=== PATIENT | male | born 1940 | race Caucasian/White ===

== ENCOUNTER 2020-10-09 16:04 | Emergency (ER) | payer OTHER, MEDICARE, SELFPAY ==
[2020-10-09 16:13] VITALS: BP 158/72; PULSE 71; RESP 20; TEMP 37.1; O2SAT 99
[2020-10-09 16:23] VITALS: BP 158/72; PULSE 71; RESP 18; TEMP 37.1; O2SAT 99; BMI 28.8
--- NOTE | 2020-10-09 16:38 | ED_ITS ---
HPI - Skin/Abscess/Foreign Bdy General Chief complaint: Skin/Abscess/Foreign Body Stated complaint: cellulitus Time Seen by Provider: 10/09/20 16:36 Source: patient Mode of arrival: ambulatory Limitations: no limitations History of Present Illness HPI narrative: 80 yo male with hx of asthma, had poison alyssa 10/04 started on cephalex[facility] his arm has gotten more swollen and red noted swollen area on elbow - had fever of 101 last night, compliant with cephalexin complaint: rash Onset (ago): day(s) (since 11/05) Tetanus up to date: yes Location: RUE Severity: moderate Quality: aching Pain Consistency: constant Relieving factors: none Exacerbating factors: none Context: recent antibiotic and other (started with poison alyssa) Associated symptoms: fever and chills Treatments prior to arrival: antibiotic Related Data Previous Rx's Medication Instructions Recorded doxycycline hyclate 100 mg PO BID 7 Days #14 cap 10/09/20 prednisone 20 mg PO DAILY 4 Days #4 tab 10/09/20 Allergies Allergy/AdvReac Type Severity Reaction Status Date / Time No Known Allergies Allergy Verified 10/09/20 16:26 Review of Systems Review of Systems: Constitutional : pos Fever, No Chills ENT/Mouth : No sore throat, No Rhinorrhea Eyes: No Eye Pain, No Swelling, No Redness Cardiovascular : No Chest Pain, No SOB Respiratory : No Cough, No Sputum Gastrointestinal : No Nausea, No Vomiting, No Diarrhea, No abdominal Pain Genitourinary : No Dysuria, No Hematuria Musculoskeletal : No joint pain, No Myalgias, No Joint Swelling Skin : No Skin Lesions, positive skin rash Neuro : No Weakness, No Numbness, No Headache Psych : No Anxiety, No Depression Heme/Lymph: No Bruising, No Bleeding,No Lymphadenopathy Endocrine : No Polyuria, No Polydipsia All other systems reviewed and are negative [facility] Past Medical History Attestation statement: The following information was validated with the patient. Medical History Asthma Hyperlipidemia Social History Social History (Updated 10/09/20 @ 16:55 by Linnette Villela DO) Smoking Status: Never smoker Use of substances other than those prescribed or required for medical reasons: No Advance Directives: No Advance Directives Information Provided: Yes Physical Exam Vital Signs: Vital Signs: Last Vital Signs Temp 98.8 F 10/09/20 16:23 Pulse 66 10/09/20 18:40 Resp 14 10/09/20 18:40 BP 163/66 H 10/09/20 18:40 Pulse Ox 97 10/09/20 18:40 Body Mass Index 28.8 Appearance: Alert. Oriented X3. No acute distress. Eyes: Pupils equal, round and reactive to light. ENT: Pharynx normal. Neck: Normal inspection. Neck supple. CVS: Normal heart rate and rhythm. Pulses normal. Respiratory: No respiratory distress. Breath sounds normal. Abdomen: Soft and nontender. Skin: Skin warm and dry. Erythema and warmth not fully circumferental but pas sed the lines drawn on 11/05, full range of motion of elbow, olecranon swollen likely bursa inflammed, distal NV intact Extremities: No lower extremity edema. No calf ttp Neuro: Oriented X 3. No motor deficit. No sensory deficit. Course Course Course Narrative: VS stable, no WBC count, negatitve lactic acid - wants to try oral medications - will add on prednisone and doxy, did offer inpatient IV antibiotics but patient wants to try outpatient oral for the next 24 hours MDM - Skin/Abscess/Foreign Bdy MDM Narrative Medical decision making narrative: 80 yo male with asthma HPL here with RUE ce llulitis no signs of septic joint at this time, NV intact, cellulitis is past the line drawn, failed outpatient cephalexin at this time will need labs, cultures, lactic acid, start zosyn and vancomycin, possible admission Lab Data Result diagrams: 10/09/20 17:30 10/09/20 17:30 Labs: Lab Results 10/09/20 10/09/20 10/09/20 Range/Units 17:30 17:30 17:30 WBC 8.3 (4.8-10.8) X10*3/uL RBC 4.69 (4.60-5.80) X10*6/uL Hgb 14.8 (14.0-18.0) g/dl Hct 44.1 (42-52) % MCV 94.0 (80-98) fL MCH 31.6 (27.0-33.0) pg MCHC 33.6 (31.0-36.0) g/dl RDW 12.8 (11.0-16.0) % Plt Count 195 (160-400) X10*3/uL MPV 9.8 (9.4-12.4) fL Immature Gran % (Auto) 0.4 (0.0-0.4) % Neut % (Auto) 66.6 (45-73) % Lymph % (Auto) 20.5 (20-40) % [place] % (Auto) 10.9 (2-11) % Eos % (Auto) 1.1 (0-4) % Baso % (Auto) 0.5 (0-2) % Lymph # (Auto) 1.7 (1.2-4.9) X10*3/uL [place] # (Auto) 0.9 (0.1-1.2) X10*3/uL Eos # (Auto) 0.1 (0.0-0.4) X10*3/uL Baso # (Auto) 0.0 (0.0-0.2) X10*3/uL Abs Immat Gran (auto) 0.03 (0.00-0.03) X10*3/uL Absolute Neuts (auto) 5.5 (2.0-8.3) X10*3/uL Absolute Nucleated RBC 0.000 (0.0-0.012) X10*3/uL Nucleated RBC % (auto) 0.0 (0.0-0.2) /100WBC Hold Blue Top SEE NOTE Sodium 141 (135-145) mmol/L Potassium 4.0 (3.3-5.1) mmol/L Chloride 104 (96-108) mmol/L Carbon Dioxide 30 H (22-29) mmol/L Anion Gap 11 L (12-20) BUN 14 (9-16) mg/dL Creatinine 0.89 (0.5-1.4) mg/dL Estim Creat Clear Calc 75.2 Estimated GFR > 60 Random Glucose 106 (60-115) mg/dL Lactic Acid (0.5-2.0) mmol/L Calcium 9.3 (8.4-10.2) mg/dL 10/09/20 Range/Units 17:30 WBC (4.8-10.8) X10*3/uL RBC (4.60-5.80) X10*6/uL Hgb (14.0-18.0) g/dl Hct (42-52) % MCV (80-98) fL MCH (27.0-33.0) pg MCHC (31.0-36.0) g/dl RDW (11.0-16.0) % Plt Count (160-400) X10*3/uL MPV (9.4-12.4) fL Immature Gran % (Auto) (0.0-0.4) % Neut % (Auto) (45-73) % Lymph % (Auto) (20-40) % [place] % (Auto) (2-11) % Eos % (Auto) (0-4) % Baso % (Auto) (0-2) % Lymph # (Auto) (1.2-4.9) X10*3/uL [place] # (Auto) (0.1-1.2) X10*3/uL Eos # (Auto) (0.0-0.4) X10*3/uL Baso # (Auto) (0.0-0.2) X10*3/uL Abs Immat Gran (auto) (0.00-0.03) X10*3/uL Absolute Neuts (auto) (2.0-8.3) X10*3/uL Absolute Nucleated RBC (0.0-0.012) X10*3/uL Nucleated RBC % (auto) (0.0-0.2) /100WBC Hold Blue Top Sodium (135-145) mmol/L Potassium (3.3-5.1) mmol/L Chloride (96-108) mmol/L Carbon Dioxide (22-29) mmol/L Anion Gap (12-20) BUN (9-16) mg/dL Creatinine (0.5-1.4) mg/dL Estim Creat Clear Calc Estimated GFR Random Glucose (60-115) mg/dL Lactic Acid 1.0 (0.5-2.0) mmol/L Calcium (8.4-10.2) mg/dL Discharge Plan Discharge Clinical Impression: Cellulitis Qualifiers: Site of cellulitis: extremity Site of cellulitis of extremity: upper extremity Laterality: right Qualified Code(s): L03.113 - Cellulitis of right upper limb Allergic reaction Qualifiers: Encounter type: initial encounter Qualified Code(s): T78.40XA - Allergy, unspecified, initial encounter Patient Disposition: Home, Self-Care Instructions: Cellulitis (ED), Poison Alyssa (ED) Additional Instructions: return to ED for any worsening symptoms or concerns NO IMPROVEMENT IN 24 HOURS, FEVERS, INCREASED SWELLING/REDNES PARTICULARY IF IT ENCIRCLE THE REDNESS PLEASE RETURN Prescriptions: New doxycycline hyclate 100 mg capsule 100 mg PO BID 7 Days Qty: 14 RF: 0 prednisone 20 mg tablet 20 mg PO DAILY 4 Days Qty: 4 RF: 0
[2020-10-09 17:38] LABS: MANUAL DIFF FLAG NO
[2020-10-09 17:40] LABS: Basophils Percent Auto 0.5 % (0-2); Eosinophils Absolute Auto 0.1 X10*3/uL (0.0-0.4); Eosinophils Percent Auto 1.1 % (0-4); Hematocrit 44.1 % (42-52); Hemoglobin 14.8 g/dl (14.0-18.0); Imm Gran Abs Auto 0.03 X10*3/uL (0.00-0.03); Imm Gran Pct Auto 0.4 % (0.0-0.4); Lymphocytes Absolute Auto 1.7 X10*3/uL (1.2-4.9); Lymphocytes Percent Auto 20.5 % (20-40); Mean Corpuscular HGB Conc 33.6 g/dl (31.0-36.0); Mean Corpuscular Hemoglobin 31.6 pg (27.0-33.0); Mean Platelet Volume 9.8 fL (9.4-12.4); Monocytes Absolute Auto 0.9 X10*3/uL (0.1-1.2); Monocytes Percent Auto 10.9 % (2-11); Neutrophils Absolute Auto 5.5 X10*3/uL (2.0-8.3); Neutrophils Percent Auto 66.6 % (45-73); Platelet Count 195 X10*3/uL (160-400); Red Blood Count 4.69 X10*6/uL (4.60-5.80); Red Cell Distribution Width 12.8 % (11.0-16.0); White Blood Count 8.3 X10*3/uL (4.8-10.8)
[2020-10-09] MEDS: Piperacillin Sodium/Tazobactam 3.375 GM in 0.9 % Sodium Chloride 50 ML IV (17:45)
[2020-10-09 18:06] LABS: Anion Gap 11 (12-20); Blood Urea Nitrogen 14 mg/dL (9-16); Calcium 9.3 mg/dL (8.4-10.2); Carbon Dioxide 30 mmol/L (22-29); Chloride 104 mmol/L (96-108); Creatinine Clr Calc Pharmacy 75.2; Estimated Glomerular Filt Rate > 60; Glucose Random 106 mg/dL (60-115); Sodium 141 mmol/L (135-145)
[2020-10-09] MEDS: vancomycin HCL 1,000 MG in 0.9 % Sodium Chloride 250 ML 270 MG IV (18:36)
[2020-10-09 18:40] VITALS: BP 163/66; PULSE 66; RESP 14; O2SAT 97
[2020-10-09] MEDS: predniSONE 20 MG TABLET PO (20:41)
== END 2020-10-09 20:54 | disposition home or self-care (01) ==
PROVIDERS: Emergency Provider Emergency Medicine; PCP Internal Medicine
DX: L03.113 Cellulitis of right upper limb (principal); L23.7 Allergic contact dermatitis due to plants, except food
CPT/HCPCS: 36415; 80048; 83605; 85025; 87040; 96365; 96367; 99284; J2543; J3370

== ENCOUNTER 2022-01-03 07:08 | Inpatient (IN) | payer OTHER, SELFPAY ==
[2022-01-03] VITALS (10 sets, daily range): BP systolic 147–185; BP diastolic 73–98; PULSE 68–103; RESP 16–21; TEMP 36.8; O2SAT 90–98; BMI 29.5
--- NOTE | ~2022-01-03 | XR_ITS ---
EXAMINATION: XR CHEST CLINICAL INFORMATION: Wheezing and cough COMPARISON: None TECHNIQUE: 2 views of the chest were obtained. FINDINGS: Lungs grossly are clear. No pleural effusions. Heart and pulmonary vessels are normal. There is spondylitic change in the thoracic spine. XR/XR chest 2V IMPRESSION: No active disease.
--- NOTE | ~2022-01-03 | US_ITS ---
EXAMINATION: US VENOUS ULTRASOUND WITH DOPPLER LOWER EXTREMITY, RIGHT CLINICAL INFORMATION: Edema and swelling COMPARISON: None TECHNIQUE: Ultrasound of the deep veins is performed from the hip to the calf with compression sonography and color and pulse Doppler assessment. Spectral analysis with color-flow imaging is performed. FINDINGS: There is normal venous compression and respiratory variation and augmented flow. The visualized common femoral vein, superficial femoral vein, profunda femoral vein, popliteal vein, and the trifurcation region shows no evidence of deep venous thrombosis. There is no significant popliteal fossa cyst. If the patient's symptoms persist, followup ultrasound in 5 days 7 days might be of value to exclude proximal propagation from a non-visualized calf vein. US/US venous duplex LE RT IMPRESSION: No DVT demonstrated in the right lower extremity.
--- NOTE | ~2022-01-03 | CT_ITS ---
EXAMINATION: CT ANGIOGRAM OF THE CHEST WITH AND WITHOUT CONTRAST (CT PULMONARY ANGIOGRAM FOR PE) CLINICAL INFORMATION: Reason for Exam hypoxia, sob COMPARISON: None TECHNIQUE: Prior to contrast administration, noncontrast localization images were obtained. Subsequently, multidetector volumetric imaging was performed from the thoracic inlet to below the diaphragms following the administration of 80 mL Omnipaque 350 intravenous contrast. No contrast reaction reported Sagittal, coronal, and MIP oblique sagittal reformatted images were obtained on the CT workstation, uploaded to PACS, and reviewed. This CT examination was performed using dose optimization techniques as appropriate, variously including the following: *Automated exposure control *Adjustment of mA and/or kV according to patient size (this includes techniques or standardized protocols for targeted exams where dose is matched to indication/reason for exam; i.e. extremities or head) *Use of iterative reconstruction technique Total exam dose-length product 340 mGy-cm FINDINGS: QUALITY OF STUDY/CONTRAST BOLUS: Satisfactory. PULMONARY ARTERIES: No central or segmental pulmonary emboli. THORACIC AORTA: No aneurysm or dissection. LUNG: There is a minor consolidation at the right lung base with associated atelectatic change but no suspicious nodules. The left lung is considered clear. PLEURA: No pleural effusion or pneumothorax. MEDIASTINUM: Normal heart size. Minimal pericardial thickening. No significant mediastinal or hilar adenopathy. No evidence of septal bowing or right heart strain. CHEST WALL/AXILLA: No axillary or internal mammary lymphadenopathy. OSSEOUS STRUCTURES: Multilevel spondylitic change but no fracture. UPPER ABDOMEN: Moderate hepatic steatosis. Gallstones. No reflux of contrast into the hepatic veins to suggest elevated right heart pressures. CT/CT angio chest PE protocol IMPRESSION: Minor infiltrate right base. No evidence for acute PE. VTE: negative
--- NOTE | 2022-01-03 08:48 | ED_ITS ---
HPI - URI/Sore Throat General Chief Complaint: Upper Respiratory Symptoms Stated Complaint: DIFF BREATHING Time Seen by Provider: 01/03/22 08:38 Source: patient Mode of arrival: ambulatory History of Present Illness HPI Narrative: 81-year-old male with a past medical history of asthma, HLD, presenting to the ED complaining of worsening SOB and cough x1 week. Reports multiple recent asthma exacerbations/bronchitis treated over the past few months with 3 or more antibiotics and prednisone, most recently finishing doxycycline/prednisone about 4 days ago. Admits to using neb machine and inhalers at home without much relief. Also reports R LE swelling. Denies fever, sore throat, ear pain, abdominal pain, nausea/vomiting, recent travel, history of clots, calf pain, chest pain MD elicited complaint: cough Pertinent past history: asthma Onset (ago): week(s) Consistency: intermittent Severity: moderate Related Data Previous Rx's Medication Instructions Recorded doxycycline hyclate 100 mg capsule 100 mg PO BID 7 days #14 caps 10/09/20 prednisone 20 mg tablet 20 mg PO DAILY 4 days #4 tabs 10/09/20 Allergies Allergy/AdvReac Type Severity Reaction Status Date / Time No Known Allergies Allergy Verified 10/09/20 16:26 Review of Systems Review of Systems: Constitutional: No Fever, No Chills, No Fatigue, No Malaise ENT/Mouth: No Ear Pain, No Nasal Congestion, No Sinus Pain, No Hoarseness, No sore throat, No Rhinorrhea, No Swallowing Difficulty Eyes: No Eye Pain, No Swelling, No Redness, No Vision Changes Cardiovascular: No Chest Pain, + SOB, No Dyspnea on Exertion, No Orthopnea, + Edema, No Palpitations Respiratory: + Cough, No Sputum, + Wheezing, No Smoke Exposure, + Dyspnea Gastrointestinal: No Nausea, No Vomiting, No Diarrhea, No Constipation, No Abdominal pain Genitourinary: No Dysuria, No Urinary Frequency, No Hematuria, No Flank Pain, No Urinary Flow Changes, No Hesitancy Musculoskeletal: No joint pain, No Myalgias, No Joint Swelling Skin: No Skin Lesions, No rash Neuro: No Weakness, No Dizziness, No Headache Yes all other systems are reviewed and are negative Constitutional: Constitutional: Reports as per [facility] Past Medical History Attestation statement: The following information was validated with the patient. Medical History Asthma Hyperlipidemia Social History Social History (Updated 10/09/20 @ 16:55 by Linnette Villela DO) Smoked in Last 30 Days: No Use of substances other than those prescribed or required for medical reasons: No Advance Directives: No Advance Directives Information Provided: No Physical Exam Vital Signs: Vital Signs: Last Vital Signs Temp 98.2 F 01/03/22 07:28 Pulse 98 01/03/22 14:37 Resp 19 01/03/22 14:37 BP 157/85 H 01/03/22 14:37 Pulse Ox 90 L 01/03/22 15:21 O2 Del Method 01/03/22 15:21 BMI result Body Mass Index 29.5 Const: General: cooperative, healthy appearing, alert and awake Orientation/consciousness: patient oriented x3 Limitations: no limitations HEENT: Head: Yes normal to inspection and Yes atraumatic Ears: hearing grossly normal bilaterally General nose exam: Normal external nose present Face and sinus: Yes normal facial exam Eyes: General: appearance normal, both eyes and all related structures EOM: EOMs intact bilaterally Neck: Neck: Yes normal visual inspection and Yes no meningeal signs Resp: Other: Talking in short sentences due to coughing Effort & Inspection: normal respiratory effort, Actively coughing and no respiratory distress Auscultation: wheezes expiratory wheezes and throughout Cardio: Rate: regular rate Heart sounds: S1 normal heart sound present and S2 normal heart sound present GI: Inspection: Yes normal to inspection Palpation (GI): Soft to palpation, nontender, no guarding and not rigid : General: Yes no CVA tenderness Back/Spine/Pelvis: Back: no CVA tenderness Skin: Rashes: no rashes Wounds: no wounds Neuro: General: patient oriented x3, tone normal and no meningeal signs Gait exam (Neuro): Normal gait present Extrem: Other: +RLE edema, no calf pain Course Course Course Narrative: -no leukocytosis. Labs otherwise unremarkable. Troponin negative. -COVID-19 negative XR chest 2V IMPRESSION: No active disease. US venous duplex LE RT IMPRESSION: No DVT demonstrated in the right lower extremity. -1128--on re-evaluation patient reports symptomatic improvement, satting 94% on RA, lungs with increased air movement, still slight residual end-expiratory wheeze. Will order additional DuoNeb and IV magnesium -1324--on re-evaluation when walked into room patient was resting comfortably sating 90-91% on RA, lungs w/bibasilar wheeze, good air, with deep breathing O2 increases to 94% > will obtain CTA to r/o PE and ambulate with pulse ox -1523--on re-evaluation patient lying in stretcher satting 90% on RA, still with residual expiratory wheeze. CT angio chest PE protocol IMPRESSION: Minor infiltrate right base. No evidence for acute PE. ? VTE: negative >> will initiate Levaquin and admit patient for further management MDM - URI/Sore Throat MDM Narrative Medical decision making narrative: 81-year-old male with a past medical history of asthma, HLD, presenting to the ED complaining of worsening SOB and cough x1 week. Reports multiple recent ast hma exacerbations/bronchitis treated over the past few months with 3 or more antibiotics and prednisone, most recently finishing doxycycline/prednisone about 4 days ago. On exam vital signs stable, sating 93-95% on RA, talking in short sentences due to coughing, diffuse expiatory wheeze throughout noted. RLE with edema. Concern for asthma exacerbation vs bronchitis vs pneumonia. Lower suspicion for ACS/PE. Rule out DVT Plan: EKG, labs, CXR, COVID-19 testing, IV Solu-Medrol, DuoNebs, reassess Differential Diagnosis Differential diagnosis: Likely upper respiratory infection Medical Records Attestation: I reviewed the patient's medical records. Lab Data Attestation: I reviewed the patient's lab results. Result diagrams: 01/03/22 08:47 01/03/22 09:24 Labs: Lab Results 01/03/22 01/03/22 01/03/22 Range/Units 08:47 08:47 08:47 WBC 7.5 (4.8-10.8) X10*3/uL RBC 4.98 (4.60-5.80) X10*6/uL Hgb 15.7 (14.0-18.0) g/dl Hct 45.9 (42.0-52.0) % MCV 92.2 (80.0-98.0) fL MCH 31.5 (27.0-33.0) pg MCHC 34.2 (31.0-36.0) g/dl RDW 13.2 (11.0-16.0) % Plt Count 191 (160-400) X10*3/uL MPV 9.5 (9.4-12.4) fL Immature Gran % (Auto) 0.3 (0.0-0.4) % Neut % (Auto) 53.5 (45-73) % Lymph % (Auto) 26.1 (20-40) % [place] % (Auto) 8.4 (2-11) % Eos % (Auto) 10.9 H (0-4) % Baso % (Auto) 0.8 (0-2) % Lymph # (Auto) 2.0 (1.2-4.9) X10*3/uL [place] # (Auto) 0.6 (0.1-1.2) X10*3/uL Eos # (Auto) 0.8 H (0.0-0.4) X10*3/uL Baso # (Auto) 0.1 (0.0-0.2) X10*3/uL Abs Immat Gran (auto) 0.02 (0.00-0.03) X10*3/uL Absolute Neuts (auto) 4.0 (2.0-8.3) x10*3/uL Absolute Nucleated RBC 0.000 (0.0-0.012) X10*3/uL Nucleated RBC % (auto) 0.0 (0.0-0.2) /100WBC Sodium (135-145) mmol/L Potassium (3.3-5.1) mmol/L Chloride (96-108) mmol/L Carbon Dioxide (22-29) mmol/L Anion Gap (12-20) BUN (9-16) mg/dL Creatinine (0.5-1.4) mg/dL Estim Creat Clear Calc Estimated GFR Random Glucose (60-115) mg/dL Calcium (8.4-10.2) mg/dL Magnesium (1.6-2.6) mg/dL Total Bilirubin (0.0-1.0) mg/dL Direct Bilirubin (0.0-0.5) mg/dL AST (5-37) U/L ALT (0-40) U/L Alkaline Phosphatase (39-117) U/L Troponin I High Sens 3.6 (<3.5-35.0) ng/L B-Natriuretic Peptide 29 (<100) pg/mL Total Protein (6.5-8.0) g/dL Albumin (3.5-5.0) g/dL COVID-19 ([facility]) Negative (Negative) COVID-19 Clin Com See Note 01/03/22 Range/Units 09:24 WBC (4.8-10.8) X10*3/uL RBC (4.60-5.80) X10*6/uL Hgb (14.0-18.0) g/dl Hct (42.0-52.0) % MCV (80.0-98.0) fL MCH (27.0-33.0) pg MCHC (31.0-36.0) g/dl RDW (11.0-16.0) % Plt Count (160-400) X10*3/uL MPV (9.4-12.4) fL Immature Gran % (Auto) (0.0-0.4) % Neut % (Auto) (45-73) % Lymph % (Auto) (20-40) % [place] % (Auto) (2-11) % Eos % (Auto) (0-4) % Baso % (Auto) (0-2) % Lymph # (Auto) (1.2-4.9) X10*3/uL [place] # (Auto) (0.1-1.2) X10*3/uL Eos # (Auto) (0.0-0.4) X10*3/uL Baso # (Auto) (0.0-0.2) X10*3/uL Abs Immat Gran (auto) (0.00-0.03) X10*3/uL Absolute Neuts (auto) (2.0-8.3) x10*3/uL Absolute Nucleated RBC (0.0-0.012) X10*3/uL Nucleated RBC % (auto) (0.0-0.2) /100WBC Sodium 144 (135-145) mmol/L Potassium 4.4 (3.3-5.1) mmol/L Chloride 107 (96-108) mmol/L Carbon Dioxide 30 H (22-29) mmol/L Anion Gap 11 L (12-20) BUN 11 (9-16) mg/dL Creatinine 0.95 (0.5-1.4) mg/dL Estim Creat Clear Calc 70.1 Estimated GFR > 60 Random Glucose 132 H (60-115) mg/dL Calcium 9.1 (8.4-10.2) mg/dL Magnesium 2.3 (1.6-2.6) mg/dL Total Bilirubin 0.3 (0.0-1.0) mg/dL Direct Bilirubin < 0.2 (0.0-0.5) mg/dL AST 22 (5-37) U/L ALT 29 (0-40) U/L Alkaline Phosphatase 62 (39-117) U/L Troponin I High Sens (<3.5-35.0) ng/L B-Natriuretic Peptide (<100) pg/mL Total Protein 6.5 (6.5-8.0) g/dL Albumin 4.1 (3.5-5.0) g/dL COVID-19 ([facility]) (Negative) COVID-19 Clin Com ECG Data Attestation: I personally reviewed and interpreted this ECG as follows: ECG interpretation date: 01/03/22 ECG interpretation time: 10:07 Prior ECG tracings: available for review Interpretation: EKG normal sinus rhythm with premature atrial complexes. At a rate of 74. QRS 108. QTC 452. Artifact present. No STEMI Critical Care Time Critical Care Time Critical Care Time: Yes Total Critical Care Time: 40 Attestation: I have personally provided critical care time exclusive of time spent on separately billable procedures. Time includes review of lab data, radiology results, discussion with consultants, and monitoring for potential decompensation. Intervention performed as documented. Discharge Plan Discharge Clinical Impression: Asthma exacerbation, Pneumonia Patient Disposition: Admitted As Inpatient Prescriptions: No Action doxycycline hyclate 100 mg capsule 100 mg PO BID 7 Days Qty: 14 0RF prednisone 20 mg tablet 20 mg PO DAILY 4 Days Qty: 4 0RF
[2022-01-03 08:52] LABS: MANUAL DIFF FLAG NO
[2022-01-03 08:54] LABS: Basophils Absolute Auto 0.1 X10*3/uL (0.0-0.2); Basophils Percent Auto 0.8 % (0-2); Eosinophils Absolute Auto 0.8 X10*3/uL (0.0-0.4); Eosinophils Percent Auto 10.9 % (0-4); Hematocrit 45.9 % (42.0-52.0); Hemoglobin 15.7 g/dl (14.0-18.0); Imm Gran Abs Auto 0.02 X10*3/uL (0.00-0.03); Imm Gran Pct Auto 0.3 % (0.0-0.4); Lymphocytes Percent Auto 26.1 % (20-40); Mean Corpuscular HGB Conc 34.2 g/dl (31.0-36.0); Mean Corpuscular Hemoglobin 31.5 pg (27.0-33.0); Mean Corpuscular Volume 92.2 fL (80.0-98.0); Mean Platelet Volume 9.5 fL (9.4-12.4); Monocytes Absolute Auto 0.6 X10*3/uL (0.1-1.2); Monocytes Percent Auto 8.4 % (2-11); Neutrophils Percent Auto 53.5 % (45-73); Platelet Count 191 X10*3/uL (160-400); Red Blood Count 4.98 X10*6/uL (4.60-5.80); Red Cell Distribution Width 13.2 % (11.0-16.0); White Blood Count 7.5 X10*3/uL (4.8-10.8)
--- NOTE | 2022-01-03 08:54 | ECG_ITS ---
Test Reason : shortness of breathe Blood Pressure : / mmHG Vent. Rate : 074 BPM Atrial Rate : 074 BPM P-R Int : 198 ms QRS Dur : 108 ms QT Int : 408 ms P-R-T Axes : 051 -46 052 degrees QTc Int : 452 ms Sinus rhythm with Premature atrial complexes Left axis deviation Minimal voltage criteria for LVH, may be normal variant ( [place] product ) Abnormal ECG No previous ECGs available Referred By: Brittnee Boswell Electronically Signed By:CELIO PEREZ
[2022-01-03] MEDS: Albuterol Sulfate (0.083%) 2.5 MG/3 ML VIAL.NEB 5 MG INHALE (09:01)
[2022-01-03] MEDS: Albuterol/Iprat 2.5/0.5MG 3 ML AMPUL.NEB INHALE ×4 (09:01→22:55)
[2022-01-03] MEDS: methylPREDNISolone Sod Succ 125 MG/2 ML VIAL IVPUSH (09:06)
[2022-01-03 09:13] LABS: COVID-19 Test Negative (Negative)
[2022-01-03 09:27] LABS: B Type Natriuretic Peptide 29 pg/mL (<100); Troponin-I High Sensitivity 3.6 ng/L (<3.5-35.0)
[2022-01-03 09:50] LABS: Alanine Aminotransferase 29 U/L (0-40); Albumin Level 4.1 g/dL (3.5-5.0); Alkaline Phosphatase 62 U/L (39-117); Anion Gap 11 (12-20); Aspartate Amino Transferase 22 U/L (5-37); Bilirubin Direct < 0.2 mg/dL (0.0-0.5); Bilirubin Total 0.3 mg/dL (0.0-1.0); Blood Urea Nitrogen 11 mg/dL (9-16); Calcium 9.1 mg/dL (8.4-10.2); Carbon Dioxide 30 mmol/L (22-29); Chloride 107 mmol/L (96-108); Creatinine Clr Calc Pharmacy 70.1; Estimated Glomerular Filt Rate > 60; Glucose Random 132 mg/dL (60-115); Magnesium 2.3 mg/dL (1.6-2.6); Potassium 4.4 mmol/L (3.3-5.1); Sodium 144 mmol/L (135-145); Total Protein 6.5 g/dL (6.5-8.0)
[2022-01-03] MEDS: Magnesium Sulfate/H2O 2 GM/50 ML PIGGYBACK IV (11:49)
[2022-01-03] MEDS: Albuterol Sulfate (0.083%) 2.5 MG/3 ML VIAL.NEB INHALE (13:57)
--- NOTE | 2022-01-03 15:43 | PHA.MEDREC ---
Addendum entered by Marisol Gutierrez [facility] 01/03/22 16:01: [facility] Atorvastatin. Interviewed patient again, he stated he no longer takes it. Original Note: Pharmacy Consult ? Medication Reconciliation Pharmacy has completed the medication reconciliation. Used list that patient had with him.
[2022-01-03] MEDS: levoFLOXacin/D5W 750 MG/150 ML PIGGYBACK 100 MG IV (16:06)
--- NOTE | 2022-01-03 17:10 | P.HPHOSP_ITS ---
History of Present Illness Date of Service: 01/03/22 Chief Complaint: sob,pneumonia 81-year-old male with a past medical history of asthma, htn,HLD, presenting to the ED complaining of worsening SOB and cough x1 week.? Reports multiple recent asthma exacerbations/bronchitis treated over the past few months with 3 or more antibiotics and prednisone by pcp , most recently finishing doxycycline/prednisone about 4 days ago. He says that shortness of breath getting progressively worsen during this week, also has aggressive cough which makes shortness of breath worse also. After trying multiple courses of nebs, steriods, antibiotic out patiently symptoms are still not improving so come hospital. Has cough aggressive- mostly itis sputum production. Sats resting at 90% but get short of breath when try to move. denies any recent sick contacts. lives alone but goes to meet his daughter almost everyday. ? Denies fever, sore throat, ear pain, abdominal pain, nausea/vomiting, recent travel, history of clots, calf pain, chest pain. in ED: Received albuterol, steroids, antibiotics, chest x-ray shows infiltrate/ Possible pneumonia. Patient has tachycardia social history : denies any history of smoking or recreational drug use or alcohol use. Review of Systems Review of Systems: as above. [facility] Medical History Asthma Hyperlipidemia Pertinent family history: denies any family history of asthma or hypertension Social History Smoked in Last 30 Days: No Use of substances other than those prescribed or required for medical reasons: No Advance Directives: No Advance Directives Information Provided: No Meds Allergies Allergy/AdvReac Type Severity Reaction Status Date / Time No Known Allergies Allergy Verified 10/09/20 16:26 Active Medications: Current Medications Albuterol/Ipratropium (Albuterol/Iprat 2.5/0.5mg 3 Ml Ampul.Neb) 3 ml INHALE Q4H [facility] Aspirin (Aspirin Enteric Coated 81 Mg Tablet.) 81 mg PO DAILY [facility] Famotidine (Famotidine 20 Mg Tablet) 40 mg PO BEDTIME [facility] Levofloxacin (Levaquin) 500 mg in 100 mls @ 100 mls/hr IV Q24H [facility] Lisinopril (Lisinopril 20 Mg Tablet) 20 mg PO DAILY [facility]; Protocol Methylprednisolone Sodium Succinate (Methylprednisolone Sod Succ 40 Mg/Ml Vial) 40 mg IVPUSH TID [facility] Metoprolol Succinate (Metoprolol Succinate Er 50 Mg Tab.Er.24h) 50 mg PO DAILY [facility]; Protocol Montelukast Sodium (Montelukast Sodium 10 Mg Tablet) 10 mg PO BEDTIME [facility] Multivitamins/Vitamin C (Multivitamin Tablet) 1 tab PO DAILY [facility] Pharmacy Consult (Consult Rx Perform Med Rec) 1 each MISCELLANE ONCE PRN PRN Reason: Consult order Sodium Chloride (0.9 % Sodium Chloride Flush 3 Ml Syringe) 3 ml IVFLUSH QSHIFT [facility] Home Medications Medication Instructions Recorded Confirmed Last Taken Type aspirin 81 mg tablet,delayed 81 mg PO DAILY 01/03/22 01/03/22 01/02/22 20:00 History release famotidine 40 mg tablet 40 mg PO BEDTIME 01/03/22 01/03/22 01/02/22 20:00 Histor y lisinopril 20 mg tablet 20 mg PO DAILY 01/03/22 01/03/22 01/02/22 20:00 History metoprolol succinate 50 mg 50 mg PO DAILY 01/03/22 01/03/22 01/02/22 20:00 History tablet,extended release 24 hr montelukast 10 mg tablet 10 mg PO BEDTIME 01/03/22 01/03/22 01/02/22 20:00 History vit C 250 mg-vit E 90 mg-zinc 40 1 tab PO DAILY 01/03/22 01/03/22 01/02/22 20:00 History mg-copper 1 [id number] capsule (PreserVision AREDS-2) Physical Exam Vital Signs and Narrative: Vital Signs: Last Vital Signs Temp 98.2 F 01/03/22 07:28 Pulse 98 01/03/22 14:37 Resp 19 01/03/22 14:37 BP 157/85 H 01/03/22 14:37 Pulse Ox 90 L 01/03/22 15:21 O2 Del Method 01/03/22 15:21 BMI result Body Mass Index 29.5 Results Labs CBC and Chem 7: 01/03/22 08:47 01/03/22 09:24 Labs: Laboratory Results - last 24 hr 01/03/22 01/03/22 01/03/22 08:47 08:47 08:47 MCV 92.2 MCH 31.5 MCHC 34.2 RDW 13.2 Plt Count 191 MPV 9.5 Immature Gran % (Auto) 0.3 Neut % (Auto) 53.5 Lymph % (Auto) 26.1 Bremer % (Auto) 8.4 Eos % (Auto) 10.9 H Baso % (Auto) 0.8 Lymph # (Auto) 2.0 Bremer # (Auto) 0.6 Eos # (Auto) 0.8 H Baso # (Auto) 0.1 Abs Immat Gran (auto) 0.02 Absolute Neuts (auto) 4.0 Absolute Nucleated RBC 0.000 Nucleated RBC % (auto) 0.0 Anion Gap Estim Creat Clear Calc Estimated GFR Random Glucose Calcium Magnesium Total Bilirubin Direct Bilirubin AST ALT Alkaline Phosphatase B-Natriuretic Peptide 29 Total Protein Albumin COVID-19 ([facility]) Negative COVID-19 Clin Com See Note 01/03/22 09:24 MCV MCH MCHC RDW Plt Count MPV Immature Gran % (Auto) Neut % (Auto) Lymph % (Auto) Bremer % (Auto) Eos % (Auto) Baso % (Auto) Lymph # (Auto) Bremer # (Auto) Eos # (Auto) Baso # (Auto) Abs Immat Gran (auto) Absolute Neuts (auto) Absolute Nucleated RBC Nucleated RBC % (auto) Anion Gap 11 L Estim Creat Clear Calc 70.1 Estimated GFR > 60 Random Glucose 132 H Calcium 9.1 Magnesium 2.3 Total Bilirubin 0.3 Direct Bilirubin < 0.2 AST 22 ALT 29 Alkaline Phosphatase 62 B-Natriuretic Peptide Total Protein 6.5 Albumin 4.1 COVID-19 ([facility]) COVID-19 Clin Com Imaging Radiologist's Impressions: Impressions Chest X-Ray 01/03/22 09:00 IMPRESSION: No active disease. Venous Duplex 01/03/22 10:43 IMPRESSION: No DVT demonstrated in the right lower extremity. Chest CTA 01/03/22 14:24 IMPRESSION: Minor infiltrate right base. No evidence for acute PE. VTE: negative Assessment and Plan (1) Asthma exacerbation: Status: Acute (2) Pneumonia: Status: Acute Plan 81-year-old male with history of hypertension, hyperlipidemia, asthma came to the hospital because shortness of breath and aggressive cough and phlegm.. 1. Asthma exacerbation/ pneumonia. Talking in the short sentences, sats are 90% resting, with walking gets more short of breath. Due to failed multiple treatment outpatientwith steroid antibiotics and nebs out patiently restart the patient on nebs, steroids IV, IV antibiotics blood cultures sent patient is not septic 2: hypertension: Continue home lisinopril and metoprolol. 3. History of carotid endarterectomy in 2008: Continue aspirin, statin, blood pressure management. 4.HLP: continue statin. DVT prophylaxis: With subQ Lovenox. Patient would benefit from to midnight stays since failed multiple outpatient medical treatments for asthma /possible pneumonia and still symptomatic. patient may benefit from to midnight stays due to above. Above management discussed with the patient in detail length he understand and in agreement with above plan, time spent 70 minute, patient is full code. Quality Stroke Does the patient have a stroke diagnosis?: No VTE Prior VTE?: No VTE Risk Level:: Medical - moderate - high VTE Device Contraindication: N/A - Device Ordered VTE Drug Contraindication: N/A - Med Ordered
[2022-01-03] MEDS: methylPREDNISolone Sod Succ 40 MG/ML VIAL IVPUSH (21:01)
[2022-01-03] MEDS: Montelukast Sodium 10 MG TABLET PO (21:01)
[2022-01-03] MEDS: Famotidine 20 MG TABLET 40 MG PO (21:01)
--- NOTE | 2022-01-03 22:47 | MHC.CM.PN ---
IMM 01/03. Met with admitted patient with bed assignment pending. A&Ox4. [place]. [facility]. 100% vet connected. Lives alone. Daily contact with daughter and her family. Nebulizer. Independent. No home services. Has services with [facility] and pharmacy. Pt is unvaccinated. States he has judaism reasons. Requesting contact information regarding PCP with [place] [facility]. Pt highly complimentary of [facility] and would like local PCP along with [facility] services. Contact information given for [facility]. D/C plan is home without services. Pt will drive himself home. His car is in the parking lot. CM to follow for d/c needs.
[2022-01-04] VITALS (10 sets, daily range): BP systolic 138–174; BP diastolic 53–94; PULSE 88–99; RESP 17–22; TEMP 36–36.7; O2SAT 92–98
[2022-01-04] MEDS: 0.9 % Sodium Chloride Flush 3 ML SYRINGE IVFLUSH ×4 (01:07→19:44)
[2022-01-04] MEDS: Albuterol/Iprat 2.5/0.5MG 3 ML AMPUL.NEB INHALE ×4 (04:28→19:26)
[2022-01-04 10:04] LABS: Procalcitonin 0.04 ng/mL
[2022-01-04] MEDS: methylPREDNISolone Sod Succ 40 MG/ML VIAL IVPUSH ×3 (10:57→19:43)
[2022-01-04] MEDS: Metoprolol Succinate ER 50 MG TAB.ER.24H PO (10:58)
[2022-01-04] MEDS: Aspirin Enteric Coated 81 MG TABLET.DR PO (10:58)
[2022-01-04] MEDS: lisinopriL 20 MG TABLET PO (10:58)
[2022-01-04] MEDS: Multivitamin TABLET 1 TAB PO (10:59)
--- NOTE | 2022-01-04 13:29 | P.CDIC_ITS ---
CDI Concurrent Query Documentation Clarification: PHYSICIAN'S DOCUMENTATION REQUEST Date of Query: 01/04/22 1329 Patient Name: Samuel Mark Admit Date: 01/03/22 Dear Doctor, Please review the following and provide your response in the progress notes. Clinical Indicators: The diagnosis of asthma was documented in the record on 01/03/22. Additional clinical indicators from the record include: Risk Factors/Clinical Indicators/Treatments Per H&P: Asthma exacerbation restart the patient on nebs, steroids IV, IV antibiotics Based on the above, please clarify in the Progress Notes further specificity regarding the type and acuity of the asthma: Type: * Mild intermittent - less than 2x/week * Mild persistent - more than 2x/week but not daily * Moderate persistent - daily and may restrict physical activity * Severe persistent - throughout the day with frequent attacks, limiting activities * Exercise induced * Chronic obstructive asthma and indicate if with acute lower respiratory infection * Asthma with underlying COPD and indicate if with acute lower respiratory infection * Other ? please specify * Unable to determine Acuity: * With acute exacerbation * With status asthmaticus * Uncomplicated * Unable to determine Use of terms such as suspected, likely, concern for, or probable (associated with a specific diagnosis that is being evaluated, monitored, or treated as if it exists) are acceptable and can be coded in the inpatient setting, when documented at the time of discharge. Thank you, Kacey Robins RN Extension: [phone] Please use your independent medical judgment in providing your response. THIS QUERY IS PART OF THE PERMANENT MEDICAL RECORD Provider Response: Other Other Diagnosis: asthma mild persistent
--- NOTE | 2022-01-04 13:29 | MHC.CDI.CONC ---
CDI Concurrent Query Documentation Clarification: PHYSICIAN'S DOCUMENTATION REQUEST Date of Query: 01/04/22 1329 Patient Name: Samuel Mark Admit Date: 01/03/22 Dear Doctor, Please review the following and provide your response in the progress notes. Clinical Indicators: The diagnosis of asthma was documented in the record on 01/03/22. Additional clinical indicators from the record include: Risk Factors/Clinical Indicators/Treatments Per H&P: Asthma exacerbation restart the patient on nebs, steroids IV, IV antibiotics Based on the above, please clarify in the Progress Notes further specificity regarding the type and acuity of the asthma: Type: Mild intermittent - less than 2x/week Mild persistent - more than 2x/week but not daily Moderate persistent - daily and may restrict physical activity Severe persistent - throughout the day with frequent attacks, limiting activities Exercise induced Chronic obstructive asthma and indicate if with acute lower respiratory infection Asthma with underlying COPD and indicate if with acute lower respiratory infection Other ? please specify Unable to determine Acuity: With acute exacerbation With status asthmaticus Uncomplicated Unable to determine Use of terms such as suspected, likely, concern for, or probable (associated with a specific diagnosis that is being evaluated, monitored, or treated as if it exists) are acceptable and can be coded in the inpatient setting, when documented at the time of discharge. Thank you, Kacey Robins RN Extension: [phone] Please use your independent medical judgment in providing your response. THIS QUERY IS PART OF THE PERMANENT MEDICAL RECORD Provider Response: Other Other Diagnosis: asthma mild persistent
--- NOTE | 2022-01-04 13:39 | P.PNIM_ITS ---
Subjective Subjective Date of Service: 01/04/22 Interval History: Asthma exacerbation/pneumonia Review of Systems patient still gets sob with minimum exertion,talks in broken sentences denies any chest pain or abdominal pain or nausea or vomiting Physical Exam Vital Signs: Vital Signs: Last Vital Signs Temp 98.0 F 01/04/22 11:32 Pulse 93 01/04/22 11:46 Resp 20 01/04/22 11:46 BP 163/69 H 01/04/22 11:32 Pulse Ox 92 01/04/22 11:32 O2 Del Method 01/04/22 11:32 BMI result Body Mass Index 29.5 Appearance: Alert.? Oriented X3.? sob? Eyes: Pupils equal, round and reactive to light.? Sclera nonicteric.? ENT: Pharynx normal.? Moist mucous membranes. cvs: rrr, [id number] , no murmur res: b/l wheezing abd: no rebound or guarding ,nt, bs present. ext pulses present , no cyanosis ,Gait well balanced well coordinated. neuro: axo3 , nonfocal. Objective Data Active Medications Albuterol/Ipratropium (Albuterol/Iprat 2.5/0.5mg 3 Ml Ampul.Neb) 3 ml INHALE Q2H [facility] Last Admin: 01/04/22 11:43 Dose: 3 ml Documented By: KE Aspirin (Aspirin Enteric Coated 81 Mg Tablet.) 81 mg PO DAILY [facility] Last Admin: 01/04/22 10:58 Dose: 81 mg Documented By: JOSE A Famotidine (Famotidine 20 Mg Tablet) 40 mg PO BEDTIME [facility] Last Admin: 01/03/22 21:01 Dose: 40 mg Documented By: TUNDE Levofloxacin (Levaquin) 500 mg in 100 mls @ 100 mls/hr IV Q24H [facility] Lisinopril (Lisinopril 20 Mg Tablet) 20 mg PO DAILY [facility]; Protocol Last Admin: 01/04/22 10:58 Dose: 20 mg Documented By: JOSE A Methylprednisolone Sodium Succinate (Methylprednisolone Sod Succ 40 Mg/Ml Vial) 40 mg IVPUSH TID [facility] Last Admin: 01/04/22 10:57 Dose: 40 mg Documented By: JOSE A Metoprolol Succinate (Metoprolol Succinate Er 50 Mg Tab.Er.24h) 50 mg PO DAILY [facility]; Protocol Last Admin: 01/04/22 10:58 Dose: 50 mg Documented By: JOSE A Montelukast Sodium (Montelukast Sodium 10 Mg Tablet) 10 mg PO BEDTIME [facility] Last Admin: 01/03/22 21:01 Dose: 10 mg Documented By: TUNDE Multivitamins/Vitamin C (Multivitamin Tablet) 1 tab PO DAILY [facility] Last Admin: 01/04/22 10:59 Dose: 1 tab Documented By: JOSE A Pharmacy Consult (Consult Rx Perform Med Rec) 1 each MISCELLANE ONCE PRN PRN Reason: Consult order Sodium Chloride (0.9 % Sodium Chloride Flush 3 Ml Syringe) 3 ml IVFLUSH QSHIFT [facility] Last Admin: 01/04/22 10:58 Dose: 3 ml Documented By: JOSE A Labs CBC & Chem 7: 01/03/22 08:47 01/03/22 09:24 Labs: Laboratory Results - last 24 hr 01/03/22 01/03/22 01/03/22 08:47 09:24 09:24 Magnesium 2.3 Total Bilirubin 0.3 Direct Bilirubin < 0.2 AST 22 ALT 29 Alkaline Phosphatase 62 B-Natriuretic Peptide 29 Total Protein 6.5 Albumin 4.1 Procalcitonin 0.04 Assessment and Plan (1) Asthma exacerbation: Status: Acute (2) Pneumonia: Status: Acute Plan 81-year-old male with history of hypertension, hyperlipidemia, asthma came to the hospital because shortness of breath and aggressive cough and phlegm.. 1. ? Asthma( mild persistent asthma) exacerbation/ pneumonia. ?sob with minimum exceersion , talking in short sentences ? Due to failed multiple treatment? outpatientwith steroid antibiotics and nebs out patiently ?restart the patient on nebs, steroids IV, IV antibiotics ?blood cultures sent ?patient is not septic 2:? hypertension:? Continue home lisinopril and metoprolol. 3.? History of carotid endarterectomy in 2008:? Continue aspirin, statin, blood pressure management. 4.HLP: continue statin. ? DVT prophylaxis:? With subQ Lovenox. inpatient need:Asthma( mild persistent asthma) exacerbation/ pneumonia. Quality Stroke Does the patient have a stroke diagnosis?: No VTE Prior VTE?: No VTE Risk Level:: Medical - moderate - high VTE Device Contraindication: N/A - Device Ordered VTE Drug Contraindication: N/A - Med Ordered
[2022-01-04] MEDS: levoFLOXacin/D5W 500 MG/100 ML PIGGYBACK 100 MG IV (16:20)
[2022-01-04] MEDS: Famotidine 20 MG TABLET 40 MG PO (19:43)
[2022-01-04] MEDS: Montelukast Sodium 10 MG TABLET PO (19:44)
[2022-01-05] VITALS (7 sets, daily range): BP systolic 125–176; BP diastolic 60–77; PULSE 67–100; RESP 15–20; TEMP 36.5–37.1; O2SAT 90–94
[2022-01-05] MEDS: Albuterol/Iprat 2.5/0.5MG 3 ML AMPUL.NEB INHALE ×4 (00:25→11:21)
[2022-01-05] MEDS: Multivitamin TABLET 1 TAB PO (08:28)
[2022-01-05] MEDS: 0.9 % Sodium Chloride Flush 3 ML SYRINGE IVFLUSH (08:28)
[2022-01-05] MEDS: Aspirin Enteric Coated 81 MG TABLET.DR PO (08:28)
[2022-01-05] MEDS: methylPREDNISolone Sod Succ 40 MG/ML VIAL IVPUSH (08:28)
[2022-01-05] MEDS: lisinopriL 20 MG TABLET PO (08:28)
[2022-01-05] MEDS: Metoprolol Succinate ER 50 MG TAB.ER.24H PO (08:28)
--- NOTE | 2022-01-05 11:45 | P.DS_ITS ---
DS: Providers Provider Date of Service: 01/05/22 Date of admission: 01/03/22 16:58 Primary care physician: Ashleigh Watts MD DS: Diagnosis Discharge Diagnosis (1) Asthma exacerbation: Status: Acute (2) Pneumonia: Status: Acute DS: Summary Hospital Course Hospital Course: 81-year-old male with a past medical history of asthma, htn,HLD, presenting to the ED complaining of worsening SOB and cough x1 week.? Reports multiple recent asthma exacerbations/bronchitis treated over the past few months with 3 or more antibiotics and prednisone by pcp , most recently finishing doxycycline/prednisone about 4 days ago. ? He says that shortness of breath getting progressively worsen during this week,? also has aggressive cough which makes shortness of breath worse also.? After trying multiple courses of nebs, steriods, antibiotic out patiently symptoms are still not? improving so come hospital. ? Has cough aggressive- mostly itis sputum production. ? Sats resting at 90% but get short of breath when try to move. ?? denies any recent sick contacts. lives alone but goes to meet his daughter almost everyday. ? Denies fever, sore throat, ear pain, abdominal pain, nausea/vomiting, recent travel, history of clots, calf pain, chest pain. in ED:? Received albuterol, steroids, antibiotics, chest x-ray shows infiltrate/ ? Possible pneumonia. ? Patient has tachycardia ?social history :? denies any history of smoking or recreational drug use or alcohol use. Hospital course: Patient came to the hospital because of shortness of breath and cough-found to have asthma exacerbation and also possible pneumonia: Started on IV nebs, steroids and antibiotics patient seems to be improved with supportive care and currently feeling much better - without any shortness of breath. Patient is going home with p.o. steroids and antibiotics. Please repeat chest imaging study in 3-4 weeks to see resolution of pneumonia. Further management outpatient. plan: Complete course of antibiotic and steroids. Please repeat chest imaging study in 3-4 weeks to see resolution of pneumonia. Further management outpatient. Above management discussed with the patient in detail length he understand and in agreement with the above plan, time spent 50 minutes and 50% time spent on counseling. Significant findings: As above. Procedures performed: None. Treatment and response: As above. Complications: None. Time Spent with Patient Time attestation: Total time spent providing and/or coordinating discharge services: Discharge coordination time: Greater than 30 minutes Quality: Safe Use of Opioids Does Pt have an Active Cancer Diagnosis on the Problem List?: No Quality: Stroke Does the patient have a stroke diagnosis?: No Physical Exam Vital Signs: Vital Signs: Last Vital Signs Temp 98.8 F 01/05/22 11:30 Pulse 100 01/05/22 11:30 Resp 18 01/05/22 11:30 BP 160/68 H 01/05/22 11:30 Pulse Ox 94 01/05/22 11:30 O2 Del Method 01/05/22 11:30 BMI result Body Mass Index 29.5 Appearance: Alert.? Oriented X3.? Eyes: Pupils equal, round and reactive to light.? Sclera nonicteric.? ENT: Pharynx normal.? Moist mucous membranes. cvs: rrr, [id number] , no murmur res:fair air entry , no rales or wheezing abd: no rebound or guarding ,nt, bs present. ext pulses present , no cyanosis . neuro: axo3 , nonfocal. DS: Data Data Completed and Pending Labs on day of discharge: Preliminary micro results at discharge 01/03/22 16:05 Blood Culture - Preliminary Blood - Venous No growth after 24 hours. 01/03/22 15:37 Blood Culture - Preliminary Blood - Venous No growth after 24 hours. ? 01/03/22 01/03/22 01/03/22 ? 08:47 08:47 08:47 MCV ?92.2 ? ? MCH ?31.5 ? ? MCHC ?34.2 ? ? RDW ?13.2 ? ? Plt Count ?191 ? ? MPV ?9.5 ? ? Immature Gran % (Auto) ?0.3 ? ? Neut % (Auto) ?53.5 ? ? Lymph % (Auto) ?26.1 ? ? Hudspeth % (Auto) ?8.4 ?B ? Eos % (Auto) ?10.9 H ? ? Baso % (Auto) ?0.8 ? ? Lymph # (Auto) ?2.0 ? ? Hudspeth # (Auto) ?0.6 ? ? Eos # (Auto) ?0.8 H ? ? Baso # (Auto) ?0.1 ? ? Abs Immat Gran (auto) ?0.02 ? ? Absolute Neuts (auto) ?4.0 ? ? Absolute Nucleated RBC ?0.000 ? ? Nucleated RBC % (auto) ?0.0 ? ? Anion Gap ? ? ? Estim Creat Clear Calc ? ? ? Estimated GFR ? ? ? Random Glucose ? ? ? Calcium ? ? ? Magnesium ? ? ? Total Bilirubin ? ? ? Direct Bilirubin ? ? ? AST ? ? ? ALT ? ? ? Alkaline Phosphatase ? ? ? B-Natriuretic Peptide ? ? ?29 Total Protein ? ? ? Albumin ? ? ? COVID-19 ([facility]) ? ?Negative ? COVID-19 Clin Com ? ?See Note ? ? 01/03/22 ? 09:24 MCV ? MCH ? MCHC ? RDW ? Plt Count ? MPV ? Immature Gran % (Auto) ? Neut % (Auto) ? Lymph % (Auto) ? Hudspeth % (Auto)B ? Eos % (Auto) ? Baso % (Auto) ? Lymph # (Auto) ? Hudspeth # (Auto) ? Eos # (Auto) ? Baso # (Auto) ? Abs Immat Gran (auto) ? Absolute Neuts (auto) ? Absolute Nucleated RBC ? Nucleated RBC % (auto) ? Anion Gap ?11 L Estim Creat Clear Calc ?70.1 Estimated GFR ?> 60 Random Glucose ?132 H Calcium ?9.1 Magnesium ?2.3 Total Bilirubin ?0.3 Direct Bilirubin ?< 0.2 AST ?22 ALT ?29 Alkaline Phosphatase ?62 B-Natriuretic Peptide ? Total Protein ?6.5 Albumin ?4.1 COVID-19 ([facility]) ? COVID-19 Clin Com ? Additional Comments Additional comments: ?CT/CT angio chest PE protocol IMPRESSION: Minor infiltrate right base. No evidence for acute PE. ? Discharge Plan Discharge Patient Disposition: Home, Self-Care Discharge Diagnosis: Asthma exacerbation, pneumonia. Referrals: Ashleigh Watts MD [Primary Care Provider] - 1 Week Discharge Medications: New prednisone 20 mg tablet 40 mg PO DAILY Qty: 10 0RF levofloxacin 500 mg tablet 500 mg PO DAILY Qty: 5 0RF Continued metoprolol succinate 50 mg Tablet Extended Release 24 Hr 50 mg PO DAILY lisinopril 20 mg Tablet 20 mg PO DAILY famotidine 40 mg Tablet 40 mg PO BEDTIME aspirin [Aspir-81] 81 mg Tablet,Delayed Release (Dr/Ec) 81 mg PO DAILY montelukast 10 mg Tablet 10 mg PO BEDTIME PreserVision AREDS-2 250-90-40-1 mg Capsule 1 tab PO DAILY Discontinued doxycycline hyclate 100 mg capsule 100 mg PO BID 7 Days Qty: 14 0RF prednisone 20 mg tablet 20 mg PO DAILY 4 Days Qty: 4 0RF Discharge Orders: Discharge Order (Routine); Ordered 01/05/22 Ordered By: Chyna Duval Diet: Advance to usual diet Activity on Discharge: As tolerated Stand Alone Forms: Patient Portal Discharge page Care Plan Goals: Patient came to the hospital because of shortness of breath and cough-found to have asthma exacerbation and also possible pneumonia: Started on IV nebs, steroids and antibiotics patient seems to be improved with supportive care and currently feeling much better - without any shortness of breath. Patient is going home with p.o. steroids and antibiotics. Please repeat chest imaging study in 3-4 weeks to see resolution of pneumonia. Further management outpatient. Health Concerns: If condition worsen develop new fever or significant shortness of breath or any new symptoms please come to the nearest emergency room. Please complete course of antibiotics and steroids. Plan of Treatment: Please complete antibiotic/ steroid as above. Also chest imaging study repeat in 3-4 weeks. Assessment: As above.
--- NOTE | 2022-01-05 11:48 | MHC.CM.PN ---
Patient has been medically cleared for dc to home today, self care. Last IMM addressed on 01/03/22.
[2022-01-05] MEDS: levoFLOXacin 500 MG TABLET PO (12:49)
== END 2022-01-05 13:00 | disposition home or self-care (01) | DRG 202 ==
LOC: HO.ED 15:26 → HO.EDOVER 20:13 → HO.IMC 01-04 07:39
PROVIDERS: Physician Assistant; Admitting Provider Internal Medicine; Emergency Provider Internal Medicine; PCP Internal Medicine; Visit Provider Internal Medicine
DX: J45.31 Mild persistent asthma with (acute) exacerbation (principal); J18.9 Pneumonia, unspecified organism; I10 Essential (primary) hypertension; E78.5 Hyperlipidemia, unspecified; Z20.822 Contact with and (suspected) exposure to COVID-19; Z79.52 Long term (current) use of systemic steroids; Z79.82 Long term (current) use of aspirin; Z79.899 Other long term (current) drug therapy
CPT/HCPCS: 71046; 71275; 80048; 80076; 83735; 83880; 84145; 84484; 85025; 87040; 87635; 93005; 93971; 94640; 94644; 96365; 96366; 96367; 96375; 99285; J1956; J2920; J2930; J3475

== ENCOUNTER 2022-04-01 10:37 | Inpatient (IN) | payer OTHER, SELFPAY ==
[2022-04-01] VITALS (9 sets, daily range): BP systolic 121–159; BP diastolic 61–76; PULSE 93–104; RESP 17–36; TEMP 36.6–37.2; O2SAT 85–97; BMI 29.5
--- NOTE | ~2022-04-01 | XR_ITS ---
EXAMINATION: XR CHEST CLINICAL INFORMATION: Shortness of breath, wheezing. COMPARISON: 01/03/2022 chest radiographs. TECHNIQUE: Frontal view of the chest was obtained. FINDINGS: Lordotic positioning and low lung volumes limit evaluation. Mild linear markings are seen at the right lung base. The left lung is clear. The heart and mediastinal structures are unremarkable. XR/XR chest 1V IMPRESSION: Mild linear atelectasis versus scarring at the right lung base. No acute cardiopulmonary process. Bibasilar linear markings at the appearance of atelectasis however an infiltrate cannot be excluded.
--- NOTE | 2022-04-01 11:01 | ECG_ITS ---
Test Reason : sob Blood Pressure : / mmHG Vent. Rate : 103 BPM Atrial Rate : 103 BPM P-R Int : 184 ms QRS Dur : 106 ms QT Int : 338 ms P-R-T Axes : 063 -41 066 degrees QTc Int : 442 ms Sinus tachycardia Left anterior fascicular block RSR' or QR pattern in V1 suggests right ventricular conduction delay Intra-ventricular conduction delay Abnormal ECG When compared with ECG of 03-JAN-2022 10:07, Premature atrial complexes are no longer Present T wave amplitude has increased in Lateral leads Heart rate has increased Referred By: Trinidad Randall Electronically Signed By:CASSANDRA HERNANDEZ MD
--- NOTE | 2022-04-01 11:02 | ED_ITS ---
HPI - SOB/Dyspnea General Chief Complaint: Upper Respiratory Symptoms Stated Complaint: Difficulty breathing Time Seen by Provider: 04/01/22 10:54 Source: patient and old records reviewed Mode of arrival: ambulatory Limitations: no limitations History of Present Illness HPI Narrative: 81 yo male with history of COPD/asthma, former heavy smoker, HTN, HLD who is presenting to the ER with 6-7 days of worsening URI symptoms including SOB, productive cough, runny nose, decreased appetite and generally not feeling well. He has been around his granddaughters this week who were sick with the flu. He states his symptoms started Monday 03/26 and have gotten worse each day. He states his symptoms are worse at night and he feels like he is drowning when he lays down. He has been using his nebulizer this week, every 3 hours with minimal relief. He has been having fevers and chills. No nausea or vomiting but decrea sed appetite. He has discomfort in his chest when he is coughing and can't bring up the phlegm. Sputum is white. No hemoptysis. MD elicited complaint: shortness of breath and cough Pertinent past history: COPD and asthma Onset (ago): week(s) (1) Context: recent illness Timing: constant and progressively worsening Severity: moderate Exacerbating factors: lying flat, exertion, movement and coughing Relieving factors: rest and bronchodilators Known history of: COPD and asthma Associated symptoms: fever, cough, wheezing, sputum production, orthopnea and chest congestion Treatment prior to arrival: bronchodilator Related Data Home oxygen amount: none Home Medications Medication Instructions Recorded Confirmed aspirin 81 mg tablet,delayed 81 mg PO DAILY 01/03/22 01/03/22 release famotidine 40 mg tablet 40 mg PO BEDTIME 01/03/22 01/03/22 lisinopril 20 mg tablet 20 mg PO DAILY 01/03/22 01/03/22 metoprolol succinate 50 mg 50 mg PO DAILY 01/03/22 01/03/22 tablet,extended release 24 hr montelukast 10 mg tablet 10 mg PO BEDTIME 01/03/22 01/03/22 vit C 250 mg-vit E 90 mg-zinc 40 1 tab PO DAILY 01/03/22 01/04/22 mg-copper 1 [id number] capsule (PreserVision AREDS-2) Previous Rx's Medication Instructions Recorded levofloxacin 500 mg tablet 500 mg PO DAILY #5 tabs 01/05/22 prednisone 20 mg tablet 40 mg PO DAILY #10 tabs 01/05/22 Allergies Allergy/AdvReac Type Severity Reaction Status Date / Time No Known Allergies Allergy Verified 10/09/20 16:26 Review of Systems Review of Systems: Constitutional: + Fever, + Chills ENT/Mouth: + sore throat, + Rhinorrhea, No Swallowing Difficulty Eyes: No Eye Pain, No Swelling, No Redness Cardiovascular: No Chest Pain, + SOB, + Orthopnea, No Edema Respiratory: + cough, + Sputum, + Wheezing, +dyspnea Gastrointestinal: No Nausea, No Vomiting, No Diarrhea, No abdominal Pain Genitourinary: No Dysuria, No Urinary Frequency, No Hematuria Musculoskeletal: No joint pain, No Myalgias Skin: No Skin Lesions, No rash Neuro: + Weakness, No Numbness, No Dizziness, No Headache Psych: No Anxiety/Panic, No Depression Heme/Lymph: No Bruising, No Lymphadenopathy PMFSH Past Medical History Medical History (Updated 04/01/22 @ 13:37 by BALBINA Boothe) Asthma Carotid stenosis COPD (chronic obstructive pulmonary disease) HTN (hypertension) Hyperlipidemia Macular degeneration Surgical History (Updated 04/01/22 @ 13:37 by BALBINA Boothe) History of carotid angioplasty Family History Family History Mother Unknown family medical history Father Unknown family medical history Social History Social History (Updated 04/01/22 @ 13:37 by BALBINA Boothe) Household Members: Family Housing: House Do you presently have visiting nurse or other home services: No Patient Tobacco Use Status: Former Tobacco user e-Cigarette/Vaping Use: Never Used Advance Directives: Yes Advance Directives on File: Yes Advance Directives Date on File: 01/04/22 service: Yes Current occupational status: retired Physical Exam Vital Signs: Vital Signs: Last Vital Signs Temp 99.0 F 04/01/22 12:15 Pulse 101 H 04/01/22 12:15 Resp 17 04/01/22 12:15 BP 147/72 H 04/01/22 12:15 Pulse Ox 94 04/01/22 12:15 O2 Del Method 04/01/22 12:15 O2 Flow Rate 2.5 04/01/22 12:15 BMI result Body Mass Index 29.5 Appearance: Alert. Oriented X3. Mild acute distress. Eyes: Pupils equal, round and reactive to light. ENT: Pharynx normal. Neck: Normal inspection. Neck supple. CVS: Tachycardic, regular rhythm. Pulses normal. Respiratory: Mild respiratory distress, RR mid 20s, audible wheezing. Breath sounds with scattered rhonchi, coarse with scattered expiratory wheezes. Abdomen: Soft and nontender. +BS x4 Skin: Skin warm and dry. Normal skin color. Normal skin turgor. No rashes. Extremities: No lower extremity edema. Neuro: Oriented X 3. No motor deficit. No sensory deficit. Course Course Course Narrative: 81 y/o male with history of COPD/asthma, HTN, HLD who is coming in with worsening SOB and cough after exposure to his sick grandchildren with the flu. On arrival he is hypoxic and tachypenic, placed on 2.5L NC with improvement in s ats to 90-92%. CXR ordered, 10 mg albuterol neb, IV steroids, IV doxycycline for COPD exacerbation, EKG labs and viral PCR. Anticipate admission. Reevaluation(s) Reevaluation #1: Continues to require supplemental oxygen, up to 4L NC. aertation slightly improved after neb but still rhonchorous. no respiratory distress. CXR without PNA. most likely viral given his recent exposures. not septic due to bacterial infection. Will plan for admission for treatment of Viral infection and COPD exacerbation. MDM - SOB/Dyspnea Medical Records Attestation: I reviewed the patient's medical records. Lab Data Attestation: I reviewed the patient's lab results. Result diagrams: 04/01/22 11:20 04/01/22 11:20 Labs: Lab Results 04/01/22 04/01/22 04/01/22 Range/Units 11:20 11:20 11:20 WBC 9.7 (4.8-10.8) X10*3/uL RBC 4.31 L (4.60-5.80) X10*6/uL Hgb 13.5 L (14.0-18.0) g/dl Hct 40.1 L (42.0-52.0) % MCV 93.0 (80.0-98.0) fL MCH 31.3 (27.0-33.0) pg MCHC 33.7 (31.0-36.0) g/dl RDW 12.8 (11.0-16.0) % Plt Count 203 (160-400) X10*3/uL MPV 10.1 (9.4-12.4) fL Immature Gran % (Auto) Cancelled Neut % (Auto) Cancelled Lymph % (Auto) Cancelled Hood % (Auto) Cancelled Eos % (Auto) Cancelled Baso % (Auto) Cancelled Lymph # (Auto) Cancelled Hood # (Auto) Cancelled Eos # (Auto) Cancelled Baso # (Auto) Cancelled Abs Immat Gran (auto) Cancelled Absolute Neuts (auto) Cancelled Absolute Nucleated RBC 0.000 (0.0-0.012) X10*3/uL Nucleated RBC % (auto) 0.0 (0.0-0.2) /100WBC Neutrophils % (Manual) 58 (45-73) % Band Neutrophils % 7 H (3-5) % Lymphocytes % (Manual) 13 L (20-40) % Monocytes % (Manual) 20 H (2-11) % Metamyelocytes % 2 % Abs Neuts (Manual) 6.3 (2.0-8.3) X10*3/uL Lymphocytes # (Manual) 1.3 (1.2-4.9) X10*3/uL Monocytes # (Manual) 1.9 H (0.1-1.2) X10*3/uL Metamyelocytes # 0.2 X10*3/uL Platelet Estimate NORMAL (NORMAL) Plt Morphology Comment NORMAL RBC Morphology NOTED Polychromasia 1+ (0-2) /OIF Sodium 135 (135-145) mmol/L Potassium 4.4 (3.3-5.1) mmol/L Chloride 96 (96-108) mmol/L Carbon Dioxide 21 L (22-29) mmol/L Anion Gap 22 H (12-20) BUN 19 H D (9-16) mg/dL Creatinine 1.03 (0.5-1.4) mg/dL Estim Creat Clear Calc 64.7 Estimated GFR > 60 Random Glucose 159 H (60-115) mg/dL Lactic Acid (0.5-2.0) mmol/L Calcium 8.7 (8.4-10.2) mg/dL Magnesium 2.3 (1.6-2.6) mg/dL Total Bilirubin 0.7 (0.0-1.0) mg/dL Direct Bilirubin 0.2 (0.0-0.5) mg/dL AST 32 D (5-37) U/L ALT 28 (0-40) U/L Alkaline Phosphatase 82 D (39-117) U/L Troponin I High Sens 3.6 (<3.5-35.0) ng/L C-Reactive Protein 33.44 H (< or = 0.50) mg/dL B-Natriuretic Peptide 33 (<100) pg/mL Total Protein 6.6 (6.5-8.0) g/dL Albumin 3.7 (3.5-5.0) g/dL Influenza Type A (PCR) (Negative) Influenza Type B (PCR) (Negative) RSV RNA Qual (PCR) (Negative) SARS-CoV-2 RNA (RT-PCR) (Negative) 04/01/22 04/01/22 Range/Units 11:20 11:39 WBC (4.8-10.8) X10*3/uL RBC (4.60-5.80) X10*6/uL Hgb (14.0-18.0) g/dl Hct (42.0-52.0) % MCV (80.0-98.0) fL MCH (27.0-33.0) pg MCHC (31.0-36.0) g/dl RDW (11.0-16.0) % Plt Count (160-400) X10*3/uL MPV (9.4-12.4) fL Immature Gran % (Auto) Neut % (Auto) Lymph % (Auto) Hood % (Auto) Eos % (Auto) Baso % (Auto) Lymph # (Auto) Hood # (Auto) Eos # (Auto) Baso # (Auto) Abs Immat Gran (auto) Absolute Neuts (auto) Absolute Nucleated RBC (0.0-0.012) X10*3/uL Nucleated RBC % (auto) (0.0-0.2) /100WBC Neutrophils % (Manual) (45-73) % Band Neutrophils % (3-5) % Lymphocytes % (Manual) (20-40) % Monocytes % (Manual) (2-11) % Metamyelocytes % % Abs Neuts (Manual) (2.0-8.3) X10*3/uL Lymphocytes # (Manual) (1.2-4.9) X10*3/uL Monocytes # (Manual) (0.1-1.2) X10*3/uL Metamyelocytes # X10*3/uL Platelet Estimate (NORMAL) Plt Morphology Comment RBC Morphology Polychromasia /OIF Sodium (135-145) mmol/L Potassium (3.3-5.1) mmol/L Chloride (96-108) mmol/L Carbon Dioxide (22-29) mmol/L Anion Gap (12-20) BUN (9-16) mg/dL Creatinine (0.5-1.4) mg/dL Estim Creat Clear Calc Estimated GFR Random Glucose (60-115) mg/dL Lactic Acid 3.0 H* (0.5-2.0) mmol/L Calcium (8.4-10.2) mg/dL Magnesium (1.6-2.6) mg/dL Total Bilirubin (0.0-1.0) mg/dL Direct Bilirubin (0.0-0.5) mg/dL AST (5-37) U/L ALT (0-40) U/L Alkaline Phosphatase (39-117) U/L Troponin I High Sens (<3.5-35.0) ng/L C-Reactive Protein (< or = 0.50) mg/dL B-Natriuretic Peptide (<100) pg/mL Total Protein (6.5-8.0) g/dL Albumin (3.5-5.0) g/dL Influenza Type A (PCR) NEGATIVE (Negative) Influenza Type B (PCR) NEGATIVE (Negative) RSV RNA Qual (PCR) NEGATIVE (Negative) SARS-CoV-2 RNA (RT-PCR) NEGATIVE (Negative) ECG Data Attestation: I personally reviewed and interpreted this ECG as follows: ECG interpretation date: 04/01/22 ECG interpretation time: 12:52 Prior ECG tracings: available for review Interpretation: sinus tachycardia, HR 103, no ST segment elevations or depressions, normal MD interval and normal QTc Critical Care Time Critical Care Time Critical Care Time: Yes Total Critical Care Time: 39 Attestation: I have personally provided critical care time exclusive of time spent on separately billable procedures. Time includes review of lab data, radiology results, discussion with consultants, and monitoring for potential decompensation. Intervention performed as documented. Discharge Plan Discharge Clinical Impression: Acute respiratory failure with hypoxia, COPD exacerbation, Viral infection Patient Disposition: Admitted As Inpatient
[2022-04-01] MEDS: Albuterol Sulfate 7.5 MG, Albuterol Sulfate (0.083%) 2.5 MG 10 MG INHALE (11:21)
[2022-04-01] MEDS: methylPREDNISolone Sod Succ 125 MG/2 ML VIAL 60 MG IVPUSH (11:30)
--- NOTE | 2022-04-01 11:30 | PC.NURSE ---
PT A&Ox3, reports increasing SOB for the past week, worsening today. Reports fevers at home and a productive cough. LS wheezes. PT on 2.5L of o2 NC. Respiratory therapist at bedside. IV established, meds given as documented.
[2022-04-01 11:33] LABS: Hematocrit 40.1 % (42.0-52.0); Hemoglobin 13.5 g/dl (14.0-18.0); Mean Corpuscular HGB Conc 33.7 g/dl (31.0-36.0); Mean Corpuscular Hemoglobin 31.3 pg (27.0-33.0); Mean Platelet Volume 10.1 fL (9.4-12.4); Platelet Count 203 X10*3/uL (160-400); Red Blood Count 4.31 X10*6/uL (4.60-5.80); Red Cell Distribution Width 12.8 % (11.0-16.0); White Blood Count 9.7 X10*3/uL (4.8-10.8)
[2022-04-01] MEDS: Magnesium Sulfate/H2O 2 GM/50 ML PIGGYBACK IV (11:34)
[2022-04-01] MEDS: guaiFENesin LA 600 MG TAB.ER.12H 1200 MG PO (11:39)
[2022-04-01 11:52] LABS: B Type Natriuretic Peptide 33 pg/mL (<100); Troponin-I High Sensitivity 3.6 ng/L (<3.5-35.0)
[2022-04-01] MEDS: Doxycycline Hyclate 100 MG in 0.9 % Sodium Chloride 250 ML 166.67 MG IV (11:54)
[2022-04-01 12:06] LABS: Band Neutrophils Percent 7 % (3-5); Lymphocytes Absolute Manual 1.3 X10*3/uL (1.2-4.9); Lymphocytes Percent Manual 13 % (20-40); Metamyelocytes Absolute 0.2 X10*3/uL; Metamyelocytes Percent 2 %; Monocytes Absolute Manual 1.9 X10*3/uL (0.1-1.2); Monocytes Percent Manual 20 % (2-11); Neutrophils Absolute Manual 6.3 X10*3/uL (2.0-8.3); Neutrophils Percent Manual 58 % (45-73)
[2022-04-01 12:07] LABS: Platelet Estimate NORMAL (NORMAL); Platelet Morphology Comment NORMAL; Polychromasia 1+ (0-2) /OIF; RBC Morphology NOTED
[2022-04-01 12:09] LABS: Influenza A PCR NEGATIVE (Negative); Influenza B PCR NEGATIVE (Negative); Resp Syncy Virus RNA Qual PCR NEGATIVE (Negative); SARS COV2 PCR INHOUSE NEGATIVE (Negative)
--- NOTE | 2022-04-01 12:52 | P.HPHOSP_ITS ---
History of Present Illness Date of Service: 04/01/22 Attending physician on admission: Niecy Castillo Chief Complaint: sob, wheezing, cough 81 yo male with history of COPD/asthma, former heavy smoker, HTN, HLD who is presenting to the ER with 6-7 days of worsening URI symptoms including SOB, productive cough, runny nose, decreased appetite and generally not feeling well. He has been around his granddaughters this week who were sick with the flu. He states his symptoms started Monday 03/26 and have gotten worse each day. He states his symptoms are worse at night and he feels like he is drowning when he lays down. He has been using his nebulizer this week, every 3 hours with minimal relief. He has been having fevers and chills. No nausea or vomiting but decreased appetite. He has discomfort in his chest when he is coughing and can't bring up the phlegm. Sputum is white. No hemoptysis. On arrival, mildly tachycardia 100, tachypneic 24, hypoxic 85% on RA, placed on 2.5L NC with improvement to 92-94%. CXR showing bilateral atelectasis and RLL scarring without any focal consolidation. WBC 9.7 with mild bandemia 7%, lactic acid 3.0, repeat pending. COVID-19 and influenza negative. Respiratory panel pending. Procalcitonin pending. Trop neg, BNP normla. CRP 33.44. To be admitted for COPD exacerbation with acute hypoxemic respiratory failure. Review of Systems Review of Systems: General: No fevers, malaise, unintentional weight loss HEENT: +Rhinorrhea, + nasal congestion. no sore throat, sinus pressure Cardiovascular: No chest pain, palpitations, or leg edema Respiratory: + shortness of breath, orthopnea, wheezing, productive cough GI: + anorexia.No abdominal pain, nausea, vomiting, diarrhea, constipation, melena, hematochezia : No dysuria, hematuria, increased urinary frequency MSK: No myalgias Neuro: No headaches, weakness, paresthesias Skin: No rashes or lesions [facility] Medical History (Updated 04/01/22 @ 13:37 by BALBINA Boothe) Asthma Carotid stenosis COPD (chronic obstructive pulmonary disease) HTN (hypertension) Hyperlipidemia Macular degeneration Family History Mother Unknown family medical history Father Unknown family medical history Surgical History (Updated 04/01/22 @ 13:37 by BALBINA Boothe) History of carotid angioplasty Social History (Updated 04/01/22 @ 13:37 by BALBINA Boothe) Household Members: Family Housing: House Do you presently have visiting nurse or other home services: No Patient Tobacco Use Status: Former Tobacco user e-Cigarette/Vaping Use: Never Used Advance Directives: Yes Advance Directives on File: Yes Advance Directives Date on File: 01/04/22 service: Yes Current occupational status: retired [employer] Allergies Allergy/AdvReac Type Severity Reaction Status Date / Time No Known Allergies Allergy Verified 10/09/20 16:26 Active Medications: Current Medications Magnesium Sulfate (Magnesium Sulfate/H2o) 2 gm in 50 mls @ 25 mls/hr IV ONCE ONE Stop: 04/01/22 13:01 Last Infusion: 04/01/22 11:58 Dose: Infused Sodium Chloride (Ns) 1,000 mls @ 999 mls/hr IVCONT .Q1H1M JHONATAN Stop: 04/01/22 13:45 Pharmacy Consult (Consult Rx Perform Med Rec) 1 each MISCELLANE ONCE PRN PRN Reason: Consult order Home Medications Medication Instructions Recorded Confirmed Last Taken Type aspirin 81 mg tablet,delayed 81 mg PO BEDTIME 01/03/22 04/01/22 03/31/22 History release famotidine 40 mg tablet 40 mg PO BEDTIME 01/03/22 04/01/22 03/31/22 History lisinopril 20 mg tablet 20 mg PO BEDTIME 01/03/22 04/01/22 03/31/22 History metoprolol succinate 50 mg 50 mg PO BEDTIME 01/03/22 04/01/22 03/31/22 History tablet,extended release 24 hr montelukast 10 mg tablet 10 mg PO BEDTIME 01/03/22 04/01/22 03/31/22 History vit C 250 mg-vit E 90 mg-zinc 40 1 tab PO BID 01/03/22 04/01/22 03/31/22 History mg-copper 1 [id number] capsule (PreserVision AREDS-2) albuterol sulfate 2.5 mg/3 mL 2.5 mg inhalation Q6H PRN 04/01/22 04/01/2203/31 History (0.083 %) solution for nebulization Shortness Of Breath albuterol sulfate 90 mcg/actuation 1 inh inhalation Q4H PRN Shortness 04/01/22 04/01/22 03/31/22 History aerosol inhaler (ProAir HFA) Of Breath fluticasone 500 mcg-salmeterol 50 1 inh inhalation BID 04/01/22 04/01/22 1 History mcg/dose blistr powdr for inhalation (Wixela Inhub) tiotropium bromide 2.5 2 puff inhalation BEDTIME 04/01/22 04/01/22 03/31/22 History mcg/actuation mist for inhalation Physical Exam Vital Signs and Narrative: Vital Signs: Last Vital Signs Temp 99.0 F 04/01/22 12:15 Pulse 101 H 04/01/22 12:15 Resp 17 04/01/22 12:15 BP 147/72 H 04/01/22 12:15 Pulse Ox 94 04/01/22 12:15 O2 Del Method 04/01/22 12:15 O2 Flow Rate 2.5 04/01/22 12:15 BMI result Body Mass Index 29.5 Constitutional - Awake and Alert, No apparent distress Eyes - PERRLA, EOMI Cardiovascular - S1S2, RRR, No edema Respiratory - Diffuse coarse rhonchi bilaterally with expiratory wheezing. Normal lung expansion, Normal respiratory effort, No respiratory distress on 4L O2 Gastrointestinal - NT / ND; +BS; No rebound or guarding Extremities - no calf tenderness bilaterally, no swelling Skin - Warm/Dry Neurological - Alert & oriented x3, CN II-XII in tact, 5/5 strength BUE and BLE Psychological - Appropriate affect Results Labs CBC and Chem 7: 04/01/22 11:20 04/01/22 11:20 Labs: Laboratory Results - last 24 hr 04/01/22 04/01/22 04/01/22 11:20 11:20 11:20 MCV 93.0 MCH 31.3 MCHC 33.7 RDW 12.8 Plt Count 203 MPV 10.1 Immature Gran % (Auto) Cancelled Neut % (Auto) Cancelled Lymph % (Auto) Cancelled [place] % (Auto) Cancelled Eos % (Auto) Cancelled Baso % (Auto) Cancelled Lymph # (Auto) Cancelled [place] # (Auto) Cancelled Eos # (Auto) Cancelled Baso # (Auto) Cancelled Abs Immat Gran (auto) Cancelled Absolute Neuts (auto) Cancelled Absolute Nucleated RBC 0.000 Nucleated RBC % (auto) 0.0 Neutrophils % (Manual) 58 Band Neutrophils % 7 H Lymphocytes % (Manual) 13 L Monocytes % (Manual) 20 H Metamyelocytes % 2 Abs Neuts (Manual) 6.3 Lymphocytes # (Manual) 1.3 Monocytes # (Manual) 1.9 H Metamyelocytes # 0.2 Platelet Estimate NORMAL Plt Morphology Comment NORMAL RBC Morphology NOTED Polychromasia 1+ (0-2) Lactic Acid Troponin I High Sens 3.6 B-Natriuretic Peptide 33 Influenza Type A (PCR) NEGATIVE Influenza Type B (PCR) NEGATIVE RSV RNA Qual (PCR) NEGATIVE SARS-CoV-2 RNA (RT-PCR) NEGATIVE 04/01/22 11:39 MCV MCH MCHC RDW Plt Count MPV Immature Gran % (Auto) Neut % (Auto) Lymph % (Auto) [place] % (Auto) Eos % (Auto) Baso % (Auto) Lymph # (Auto) [place] # (Auto) Eos # (Auto) Baso # (Auto) Abs Immat Gran (auto) Absolute Neuts (auto) Absolute Nucleated RBC Nucleated RBC % (auto) Neutrophils % (Manual) Band Neutrophils % Lymphocytes % (Manual) Monocytes % (Manual) Metamyelocytes % Abs Neuts (Manual) Lymphocytes # (Manual) Monocytes # (Manual) Metamyelocytes # Platelet Estimate Plt Morphology Comment RBC Morphology Polychromasia Lactic Acid 3.0 H* Troponin I High Sens B-Natriuretic Peptide Influenza Type A (PCR) Influenza Type B (PCR) RSV RNA Qual (PCR) SARS-CoV-2 RNA (RT-PCR) Imaging Radiologist's Impressions: Impressions Chest X-Ray 04/01/22 11:49 IMPRESSION: Mild linear atelectasis versus scarring at the right lung base. No acute cardiopulmonary process. Bibasilar linear markings at the appearance of atelectasis however an infiltrate cannot be excluded. Assessment and Plan (1) COPD exacerbation: Status: Acute (2) Acute respiratory failure with hypoxia: Status: Acute Plan 81 yo male with history of COPD/asthma, former heavy smoker, HTN, HLD, periphe ral artery disease with history of carotid angioplasty, and macular degeneration admitted for acute COPD exacerbation with acute hypoxemic respiratory failure. # Acute hypoxemic respiratory failure secondary to COPD exacerbation - oximetry of 85% on arrival. Now resting comfortably on 4 L supplemental O2 with oximetry 92% - continue supplemental oxygen to maintain oximetry of 92% - treat COPD exacerbation as below # acute COPD exacerbation likely secondary to viral infection - recent contact with sick grandchildren. COVID-19 and influenza negative. viral respiratory panel showing entero/rhinovirus. Procalcitonin negative - CXR with bibasilar atelectasis And scarring right lung base. pneumonia less likely - No leukocytosis. tachypnea secondary to COPD exacerbation and hypoxia, tac hycardia secondary to albuterol use. Lactic acid 3.0 likely secondary to hypoxia and albuterol use, not Severe sepsis - 40 mg IV Solu-Medrol b.i.d. - azithromycin 500 mg daily x3 days - DuoNebs q.4h while awake - continue supplemental O2 as above - continue home maintenance inhalers - guaifenesin p.r.n. for cough - Follow blood cultures #Enterovirus/rhinovirus -Respiratory panel positive -symptomatic management -Droplet/contact precautions # hypertension- reasonably controlled - continue lisinopril, metoprolol # GERD - continue famotidine # PA D - continue aspirin and Plavix DVT prophylaxis-Lovenox full code patient requires inpatient stay of at least 2 midnights due to COPD exac erbation with acute hypoxemic respiratory failure requiring supplemental O2 and IV steroids Quality Stroke Does the patient have a stroke diagnosis?: No VTE Prior VTE?: No VTE Risk Level:: Medical - moderate - high VTE Device Contraindication: Treatment Not Indicated VTE Drug Contraindication: N/A - Med Ordered
[2022-04-01 13:05] LABS: Alanine Aminotransferase 28 U/L (0-40); Albumin Level 3.7 g/dL (3.5-5.0); Alkaline Phosphatase 82 U/L (39-117); Anion Gap 22 (12-20); Aspartate Amino Transferase 32 U/L (5-37); Bilirubin Direct 0.2 mg/dL (0.0-0.5); Bilirubin Total 0.7 mg/dL (0.0-1.0); Blood Urea Nitrogen 19 mg/dL (9-16); Calcium 8.7 mg/dL (8.4-10.2); Carbon Dioxide 21 mmol/L (22-29); Chloride 96 mmol/L (96-108); Creatinine Clr Calc Pharmacy 64.7; Estimated Glomerular Filt Rate > 60; Glucose Random 159 mg/dL (60-115); Magnesium 2.3 mg/dL (1.6-2.6); Potassium 4.4 mmol/L (3.3-5.1); Sodium 135 mmol/L (135-145); Total Protein 6.6 g/dL (6.5-8.0)
[2022-04-01] MEDS: 0.9 % Sodium Chloride 1,000 ML 999 ML IVCONT (13:20)
[2022-04-01 13:24] LABS: C Reactive Protein 33.44 mg/dL (< or = 0.50)
[2022-04-01 13:44] LABS: Reflex Lactate? Lactic Acid Added
[2022-04-01 14:04] LABS: Procalcitonin 0.41 ng/mL
--- NOTE | 2022-04-01 14:27 | PHA.MEDREC ---
Pharmacy Consult ? Medication Reconciliation Pharmacy has completed the medication reconciliation. Spoke with patient in the ED and list obtained from [place]. Patient takes ALL medications at night.
[2022-04-01 14:31] LABS: Adenovirus PCR Not Detected (Not Detect.); Bordetella parapertussis PCR Not Detected (Not Detect.); Bordetella pertussis PCR Not Detected (Not Detect.); Chlamydia pneumoniae PCR Not Detected (Not Detect.); Coronavirus 229E PCR Not Detected (Not Detect.); Coronavirus HKU1 PCR Not Detected (Not Detect.); Coronavirus NL63 PCR Not Detected (Not Detect.); Coronavirus OC43 PCR Not Detected (Not Detect.); Human metapneumovirus PCR Not Detected (Not Detect.); Influenza A PCR Not Detected (Not Detect.); Influenza B PCR Not Detected (Not Detect.); Mycoplasma pneumoniae PCR Not Detected (Not Detect.); Parainfluenza 1 PCR Not Detected (Not Detect.); Parainfluenza 2 PCR Not Detected (Not Detect.); Parainfluenza 3 PCR Not Detected (Not Detect.); Parainfluenza 4 PCR Not Detected (Not Detect.); RSV PCR Not Detected (Not Detect.); Rhino/Enterovirus PCR Detected (Not Detect.); SARS-CoV-2 PCR Not Detected (Not Detect.)
[2022-04-01 14:33] LABS: ~Lactic Acid-LAB USE ONLY 1.7 mmol/L (0.5-2.0)
[2022-04-01] MEDS: Enoxaparin Sodium 40 MG/0.4 ML SYRINGE SUBCUT (15:11)
[2022-04-01] MEDS: Azithromycin 500 MG in 0.9 % Sodium Chloride 250 ML 125 MG IV (15:12)
[2022-04-01] MEDS: Albuterol/Iprat 2.5/0.5MG 3 ML AMPUL.NEB INHALE ×2 (15:26→19:27)
[2022-04-01 16:51] LABS: Appearance Urine Cloudy; Color Urine Yellow; Glucose Urine UA Negative (Negative); Leukocyte Esterase Urine Negative (Negative); Nitrite Urine Negative (Negative); PH 5.5 (5.0-9.0); UMIC TRIGGER UACC YES; Urine Blood Trace (Negative); Urine Ketones 40 mg/dL (Negative); Urine Protein 100 (2+) mg/dL (Neg-Trace)
[2022-04-01 16:55] LABS: Bacteria Urine None Seen (None Seen); RBC Urine 0-2 /HPF (0-2); WBC Urine 0-5 /HPF (0-5)
[2022-04-01] MEDS: Montelukast Sodium 10 MG TABLET PO (20:09)
[2022-04-01] MEDS: lisinopriL 20 MG TABLET PO (20:09)
[2022-04-01] MEDS: Metoprolol Succinate ER 50 MG TAB.ER.24H PO (20:09)
[2022-04-01] MEDS: Aspirin Enteric Coated 81 MG TABLET.DR PO (20:09)
[2022-04-01] MEDS: methylPREDNISolone Sod Succ 40 MG/ML VIAL IVPUSH (20:09)
[2022-04-01] MEDS: Famotidine 20 MG TABLET 40 MG PO (20:09)
--- NOTE | 2022-04-01 20:10 | PC.NURSE ---
Medicated pt. per MAR. Pt. denies any complaints at this time. Call coy within reach. Resting comfortably and watching TV. VSS
--- NOTE | 2022-04-01 21:48 | PC.NURSE ---
This RN called pharmacy to request pt.'s Flonase nasal spray. Per Jovon in pharmacy, he will send the spray up as soon as he's able to
[2022-04-01] MEDS: Fluticasone Propionate Nasal 16 GM SPRAY 1 SPRAY NOSTRIL-B (22:18)
--- NOTE | 2022-04-01 22:18 | PC.NURSE ---
Medicated pt. with Flonase nasal spray per AUG. Pt. continues to deny complaints and is resting comfortably.
[2022-04-02] VITALS (8 sets, daily range): BP systolic 140–142; BP diastolic 56–107; PULSE 72–89; RESP 18–31; TEMP 36.7; O2SAT 91–95
[2022-04-02] MEDS: Albuterol/Iprat 2.5/0.5MG 3 ML AMPUL.NEB INHALE ×4 (08:15→19:11)
[2022-04-02] MEDS: Fluticasone/Vilanterol 200/25 BLST.W.DEV 1 PUFF INHALE (08:28)
[2022-04-02] MEDS: Fluticasone Propionate Nasal 16 GM SPRAY 1 SPRAY NOSTRIL-B ×2 (08:39→21:11)
[2022-04-02] MEDS: 0.9 % Sodium Chloride Flush 3 ML SYRINGE IVFLUSH ×2 (08:50→16:14)
[2022-04-02] MEDS: methylPREDNISolone Sod Succ 40 MG/ML VIAL IVPUSH ×2 (08:50→21:11)
[2022-04-02] MEDS: Multivitamin TABLET 1 TAB PO (08:50)
--- NOTE | 2022-04-02 11:22 | HO.PM.IMCN ---
History of Present Illness Data of Consult Primary Care Provider: Ashleigh Watts MD [facility] Medical History (Updated 04/01/22 @ 13:37 by BALBINA Boothe) Asthma Carotid stenosis COPD (chronic obstructive pulmonary disease) HTN (hypertension) Hyperlipidemia Macular degeneration Family History Mother Unknown family medical history Father Unknown family medical history Surgical History (Updated 04/01/22 @ 13:37 by BALBINA Boothe) History of carotid angioplasty Social History (Updated 04/01/22 @ 13:37 by BALBINA Boothe) Household Members: Family Housing: House Do you presently have visiting nurse or other home services: No Patient Tobacco Use Status: Former Tobacco user e-Cigarette/Vaping Use: Never Used Advance Directives: Yes Advance Directives on File: Yes Advance Directives Date on File: 01/04/22 service: Yes Current occupational status: retired [employer] Allergies Allergy/AdvReac Type Severity Reaction Status Date / Time No Known Allergies Allergy Verified 10/09/20 16:26 Active Medications: Current Medications Acetaminophen (Acetaminophen 325 Mg Tablet) 650 mg PO Q6H PRN PRN Reason: Pain, Mild, fever Albuterol/Ipratropium (Albuterol/Iprat 2.5/0.5mg 3 Ml Ampul.Neb) 3 ml INHALE RQ4H WHILE AWAKE [facility] Last Admin: 04/02/22 11:15 Dose: 3 ml Albuterol/Ipratropium (Albuterol/Iprat 2.5/0.5mg 3 Ml Ampul.Neb) 3 ml INHALE RQ4H PRN PRN Reason: wheezing Aspirin (Aspirin Enteric Coated 81 Mg Tablet.Dr) 81 mg PO BEDTIME [facility] Last Admin: 04/01/22 20:09 Dose: 81 mg Docusate Sodium (Docusate Sodium 100 Mg Capsule) 100 mg PO DAILY PRN PRN Reason: Constipation Enoxaparin Sodium (Enoxaparin Sodium 40 Mg/0.4 Ml Syringe) 40 mg SUBCUT Q24H [facility] Last Admin: 04/01/22 15:11 Dose: 40 mg Famotidine (Famotidine 20 Mg Tablet) 40 mg PO BEDTIME [facility] Last Admin: 04/01/22 20:09 Dose: 40 mg Fluticasone Propionate (Fluticasone Propionate Nasal 16 Gm [place]) 1 spray NOSTRIL-B BID [facility] Last Admin: 04/02/22 08:39 Dose: 1 spray Fluticasone/Vilanterol (Fluticasone/Vilanterol 200/25 Blst.W.Dev) 1 puff INHALE RDAILY [facility] Last Admin: 04/02/22 08:28 Dose: 1 puff Guaifenesin (Guaifenesin 200 Mg/10 Ml 10 Ml Liquid) 10 ml PO Q4H PRN PRN Reason: Cough Azithromycin 500 mg/ Sodium (Chloride) 250 mls @ 125 mls/hr IV Q24H [facility] Last Infusion: 04/01/22 17:15 Dose: Infused Lisinopril (Lisinopril 20 Mg Tablet) 20 mg PO BEDTIME [facility]; Protocol Last Admin: 04/01/22 20:09 Dose: 20 mg Methylprednisolone Sodium Succinate (Methylprednisolone Sod Succ 40 Mg/Ml Vial) 40 mg IVPUSH Q12H [facility] Last Admin: 04/02/22 08:50 Dose: 40 mg Metoprolol Succinate (Metoprolol Succinate Er 50 Mg Tab.Er.24h) 50 mg PO BEDTIME [facility]; Protocol Last Admin: 04/01/22 20:09 Dose: 50 mg Montelukast Sodium (Montelukast Sodium 10 Mg Tablet) 10 mg PO BEDTIME [facility] Last Admin: 04/01/22 20:09 Dose: 10 mg Multivitamins/Vitamin C (Multivitamin Tablet) 1 tab PO DAILY [facility] Last Admin: 04/02/22 08:50 Dose: 1 tab Ondansetron HCl (Ondansetron Hcl 4 Mg/2 Ml Vial) 4 mg IVPUSH Q8H PRN PRN Reason: Nausea and Vomiting Pharmacy Consult (Consult Rx Perform Med Rec) 1 each MISCELLANE ONCE PRN PRN Reason: Consult order Sodium Chloride (0.9 % Sodium Chloride Flush 3 Ml Syringe) 3 ml IVFLUSH QSHIFT [facility] Last Admin: 04/02/22 08:50 Dose: 3 ml Tiotropium [place] (Tiotropium [place] 18 Mcg Cap.W.Dev) 2 puff INHALE DAILY@1999 [facility] Last Admin: 04/02/22 08:32 Dose: 2 puff Home Medications Medication Instructions Recorded Confirmed Last Taken Type aspirin 81 mg tablet,delayed 81 mg PO BEDTIME 01/03/22 04/01/2222 History release famotidine 40 mg tablet 40 mg PO BEDTIME 01/03/22 04/01/22 03/31/22 History lisinopril 20 mg tablet 20 mg PO BEDTIME 01/03/22 04/01/22 03/31/22 History metoprolol succinate 50 mg 50 mg PO BEDTIME 01/03/22 04/01/22 03/31/22 History tablet,extended release 24 hr montelukast 10 mg tablet 10 mg PO BEDTIME 01/03/22 04/01/22 03/31/22 History vit C 250 mg-vit E 90 mg-zinc 40 1 tab PO BID 01/03/22 04/01/22 03/31/22 History mg-copper 1 [id number] capsule (PreserVision AREDS-2) albuterol sulfate 2.5 mg/3 mL 2.5 mg inhalation Q6H PRN 04/01/22 04/01/22 03/31/22 History (0.083 %) solution for nebulization Shortness Of Breath albuterol sulfate 90 mcg/actuation 1 inh inhalation Q4H PRN Shortness 04/01/22 04/01/22 03/31/22 History aerosol inhaler (ProAir HFA) Of Breath fluticasone 500 mcg-salmeterol 50 1 inh inhalation BID 04/01/22 04/01/22 03/31/22 History mcg/dose blistr powdr for inhalation (Wixela Inhub) tiotropium bromide 2.5 2 puff inhalation BEDTIME 04/01/22 04/01/22 03/31/22 History mcg/actuation mist for inhalation Physical Exam Vital Signs and Narrative: Vital Signs: Last Vital Signs Temp 97.8 F 04/01/22 23:13 Pulse 72 04/02/22 11:16 Resp 18 04/02/22 11:16 BP 142/107 H 04/02/22 07:09 Pulse Ox 93 04/02/22 07:09 O2 Del Method 04/02/22 07:09 O2 Flow Rate 3 04/02/22 07:09 BMI result Body Mass Index 29.5 Results Labs CBC and Chem 7: 04/01/22 11:20 04/01/22 11:20 Labs: Laboratory Results - last 24 hr 04/01/22 04/01/2204/01/22 11:20 11:20 11:20 MCV 93.0 MCH 31.3 MCHC 33.7 RDW 12.8 Plt Count 203 MPV 10.1 Immature Gran % (Auto) Cancelled Neut % (Auto) Cancelled Lymph % (Auto) Cancelled [place] % (Auto) Cancelled Eos % (Auto) Cancelled Baso % (Auto) Cancelled Lymph # (Auto) Cancelled [place] # (Auto) Cancelled Eos # (Auto) Cancelled Baso # (Auto) Cancelled Abs Immat Gran (auto) Cancelled Absolute Neuts (auto) Cancelled Absolute Nucleated RBC 0.000 Nucleated RBC % (auto) 0.0 Neutrophils % (Manual) 58 Band Neutrophils % 7 H Lymphocytes % (Manual) 13 L Monocytes % (Manual) 20 H Metamyelocytes % 2 Abs Neuts (Manual) 6.3 Lymphocytes # (Manual) 1.3 Monocytes # (Manual) 1.9 H Metamyelocytes # 0.2 Platelet Estimate NORMAL Plt Morphology Comment NORMAL RBC Morphology NOTED Polychromasia 1+ (0-2) Anion Gap 22 H Estim Creat Clear Calc 64.7 Estimated GFR > 60 Random Glucose 159 H Lactic Acid Lactic Acid F/U @ 2Hr Calcium 8.7 Magnesium 2.3 Total Bilirubin 0.7 Direct Bilirubin 0.2 AST 32 D ALT 28 Alkaline Phosphatase 82 D Troponin I High Sens 3.6 C-Reactive Protein 33.44 H B-Natriuretic Peptide 33 Total Protein 6.6 Albumin 3.7 Procalcitonin Urine Color Urine Appearance Urine pH Ur Specific [place] Urine Protein Urine Glucose (UA) Urine Ketones Urine Blood Urine Nitrite Ur Leukocyte Esterase Urine RBC Urine WBC Ur Squamous Epith Cells Urine Bacteria Hyaline Casts Respiratory Panel [place] Adenovirus (Rapid PCR) B.pert (TEM-PCR) B.parapertussis DNA PCR C. pneumoniae DNA (PCR) Coronavirus OC43 (PCR) Coronavirus HKU1 (PCR) Coronavirus 229E (PCR) Coronavirus NL63 (PCR) Human Metapneumovir PCR Influenza A (RT-PCR) Influenza Type A (PCR) Influenza B (RT-PCR) Influenza Type B (PCR) M. pneumoniae (PCR) Parainfluenza 1 (PCR) Parainfluenza 2 (PCR) Parainfluenza 3 (PCR) Parainfluenza 4 (PCR) RSV (PCR) RSV RNA Qual (PCR) Entero/Rhino (PCR) SARS-CoV-2 RNA (RT-PCR) 04/01/22 04/01/22 04/01/22 11:20 11:20 11:39 MCV MCH MCHC RDW Plt Count MPV Immature Gran % (Auto) Neut % (Auto) Lymph % (Auto) [place] % (Auto) Eos % (Auto) Baso % (Auto) Lymph # (Auto) [place] # (Auto) Eos # (Auto) Baso # (Auto) Abs Immat Gran (auto) Absolute Neuts (auto) Absolute Nucleated RBC Nucleated RBC % (auto) Neutrophils % (Manual) Band Neutrophils % Lymphocytes % (Manual) Monocytes % (Manual) Metamyelocytes % Abs Neuts (Manual) Lymphocytes # (Manual) Monocytes # (Manual) Metamyelocytes # Platelet Estimate Plt Morphology Comment RBC Morphology Polychromasia Anion Gap Estim Creat Clear Calc Estimated GFR Random Glucose Lactic Acid 3.0 H* Lactic Acid F/U @ 2Hr Calcium Magnesium Total Bilirubin Direct Bilirubin AST ALT Alkaline Phosphatase Troponin I High Sens C-Reactive Protein B-Natriuretic Peptide Total Protein Albumin Procalcitonin 0.41 Urine Color Urine Appearance Urine pH Ur Specific [place] Urine Protein Urine Glucose (UA) Urine Ketones Urine Blood Urine Nitrite Ur Leukocyte Esterase Urine RBC Urine WBC Ur Squamous Epith Cells Urine Bacteria Hyaline Casts Respiratory Panel [place] Adenovirus (Rapid PCR) B.pert (TEM-PCR) B.parapertussis DNA PCR C. pneumoniae DNA (PCR) Coronavirus OC43 (PCR) Coronavirus HKU1 (PCR) Coronavirus 229E (PCR) Coronavirus NL63 (PCR) Human Metapneumovir PCR Influenza A (RT-PCR) Influenza Type A (PCR) NEGATIVE Influenza B (RT-PCR) Influenza Type B (PCR) NEGATIVE M. pneumoniae (PCR) Parainfluenza 1 (PCR) Parainfluenza 2 (PCR) Parainfluenza 3 (PCR) Parainfluenza 4 (PCR) RSV (PCR) RSV RNA Qual (PCR) NEGATIVE Entero/Rhino (PCR) SARS-CoV-2 RNA (RT-PCR) NEGATIVE 04/01/22 04/01/22 04/01/22 13:27 13:52 16:40 MCV MCH MCHC RDW Plt Count MPV Immature Gran % (Auto) Neut % (Auto) Lymph % (Auto) [place] % (Auto) Eos % (Auto) Baso % (Auto) Lymph # (Auto) [place] # (Auto) Eos # (Auto) Baso # (Auto) Abs Immat Gran (auto) Absolute Neuts (auto) Absolute Nucleated RBC Nucleated RBC % (auto) Neutrophils % (Manual) Band Neutrophils % Lymphocytes % (Manual) Monocytes % (Manual) Metamyelocytes % Abs Neuts (Manual) Lymphocytes # (Manual) Monocytes # (Manual) Metamyelocytes # Platelet Estimate Plt Morphology Comment RBC Morphology Polychromasia Anion Gap Estim Creat Clear Calc Estimated GFR Random Glucose Lactic Acid Lactic Acid F/U @ 2Hr 1.7 Calcium Magnesium Total Bilirubin Direct Bilirubin AST ALT Alkaline Phosphatase Troponin I High Sens C-Reactive Protein B-Natriuretic Peptide Total Protein Albumin Procalcitonin Urine Color Yellow Urine Appearance Cloudy Urine pH 5.5 Ur Specific [place] 1.020 Urine Protein 100 (2+) H Urine Glucose (UA) Negative Urine Ketones 40 Urine Blood Trace H Urine Nitrite Negative Ur Leukocyte Esterase Negative Urine RBC 0-2 Urine WBC 0-5 Ur Squamous Epith Cells 6-10 Urine Bacteria None Seen Hyaline Casts 3-5 Respiratory Panel [place] See Note Adenovirus (Rapid PCR) Not Detected B.pert (TEM-PCR) Not Detected B.parapertussis DNA PCR Not Detected C. pneumoniae DNA (PCR) Not Detected Coronavirus OC43 (PCR) Not Detected Coronavirus HKU1 (PCR) Not Detected Coronavirus 229E (PCR) Not Detected Coronavirus NL63 (PCR) Not Detected Human Metapneumovir PCR Not Detected Influenza A (RT-PCR) Not Detected Influenza Type A (PCR) Influenza B (RT-PCR) Not Detected Influenza Type B (PCR) M. pneumoniae (PCR) Not Detected Parainfluenza 1 (PCR) Not Detected Parainfluenza 2 (PCR) Not Detected Parainfluenza 3 (PCR) Not Detected Parainfluenza 4 (PCR) Not Detected RSV (PCR) Not Detected RSV RNA Qual (PCR) Entero/Rhino (PCR) Detected A SARS-CoV-2 RNA (RT-PCR) Not Detected Imaging Radiologist's Impressions: Impressions Chest X-Ray 04/01/22 11:49 IMPRESSION: Mild linear atelectasis versus scarring at the right lung base. No acute cardiopulmonary process. Bibasilar linear markings at the appearance of atelectasis however an infiltrate cannot be excluded.
--- NOTE | 2022-04-02 11:25 | HO.PM.IMPN ---
Subjective Subjective Date of Service: 04/02/22 Interval History: f/u on on acute resp failure interval history: Still very short of breath, and O2 sat is marginal on O2 Review of Systems sob cough no fever Physical Exam Vital Signs: Vital Signs: Last Vital Signs Temp 97.8 F 04/01/22 23:13 Pulse 72 04/02/22 11:16 Resp 18 04/02/22 11:16 BP 142/107 H 04/02/22 07:09 Pulse Ox 93 04/02/22 07:09 O2 Del Method 04/02/22 07:09 O2 Flow Rate 3 04/02/22 07:09 BMI result Body Mass Index 29.5 Const: Other: General: AO X 3, no acute distress Resp: rhonchi, wheezes CVS: S1,S2,RRR GI: +BS, NT, no distention Skin: No rash Neuro: motor grossly intact Psych: appropriate affect Objective Data Active Medications Acetaminophen (Acetaminophen 325 Mg Tablet) 650 mg PO Q6H PRN PRN Reason: Pain, Mild, fever Albuterol/Ipratropium (Albuterol/Iprat 2.5/0.5mg 3 Ml Ampul.Neb) 3 ml INHALE RQ4H WHILE AWAKE [facility] Last Admin: 04/02/22 11:15 Dose: 3 ml Documented By: KE Albuterol/Ipratropium (Albuterol/Iprat 2.5/0.5mg 3 Ml Ampul.Neb) 3 ml INHALE RQ4H PRN PRN Reason: wheezing Aspirin (Aspirin Enteric Coated 81 Mg Tablet.Dr) 81 mg PO BEDTIME [facility] Last Admin: 04/01/22 20:09 Dose: 81 mg Documented By: TUNDE Docusate Sodium (Docusate Sodium 100 Mg Capsule) 100 mg PO DAILY PRN PRN Reason: Constipation Enoxaparin Sodium (Enoxaparin Sodium 40 Mg/0.4 Ml Syringe) 40 mg SUBCUT Q24H [facility] Last Admin: 04/01/22 15:11 Dose: 40 mg Documented By: JUAN Famotidine (Famotidine 20 Mg Tablet) 40 mg PO BEDTIME [facility] Last Admin: 04/01/22 20:09 Dose: 40 mg Documented By: TUNDE Fluticasone Propionate (Fluticasone Propionate Nasal 16 Gm [place]) 1 spray NOSTRIL-B BID [facility] Last Admin: 04/02/22 08:39 Dose: 1 spray Documented By: MATY Fluticasone/Vilanterol (Fluticasone/Vilanterol 200/25 Blst.W.Dev) 1 puff INHALE RDAILY [facility] Last Admin: 04/02/22 08:28 Dose: 1 puff Documented By: KE Guaifenesin (Guaifenesin 200 Mg/10 Ml 10 Ml Liquid) 10 ml PO Q4H PRN PRN Reason: Cough Azithromycin 500 mg/ Sodium (Chloride) 250 mls @ 125 mls/hr IV Q24H [facility] Last Infusion: 04/01/22 17:15 Dose: 0 mls/hr Documented By: SERRANOly Lisinopril (Lisinopril 20 Mg Tablet) 20 mg PO BEDTIME [facility]; Protocol Last Admin: 04/01/22 20:09 Dose: 20 mg Documented By: TUNDE Methylprednisolone Sodium Succinate (Methylprednisolone Sod Succ 40 Mg/Ml Vial) 40 mg IVPUSH Q12H [facility] Last Admin: 04/02/22 08:50 Dose: 40 mg Documented By: MATY Metoprolol Succinate (Metoprolol Succinate Er 50 Mg Tab.Er.24h) 50 mg PO BEDTIME [facility]; Protocol Last Admin: 04/01/22 20:09 Dose: 50 mg Documented By: TUNDE Montelukast Sodium (Montelukast Sodium 10 Mg Tablet) 10 mg PO BEDTIME [facility] Last Admin: 04/01/22 20:09 Dose: 10 mg Documented By: TUNDE Multivitamins/Vitamin C (Multivitamin Tablet) 1 tab PO DAILY [facility] Last Admin: 04/02/22 08:50 Dose: 1 tab Documented By: MATY Ondansetron HCl (Ondansetron Hcl 4 Mg/2 Ml Vial) 4 mg IVPUSH Q8H PRN PRN Reason: Nausea and Vomiting Pharmacy Consult (Consult Rx Perform Med Rec) 1 each MISCELLANE ONCE PRN PRN Reason: Consult order Sodium Chloride (0.9 % Sodium Chloride Flush 3 Ml Syringe) 3 ml IVFLUSH QSHIFT [facility] Last Admin: 04/02/22 08:50 Dose: 3 ml Documented By: MATY Tiotropium [place] (Tiotropium [place] 18 Mcg Cap.W.Dev) 2 puff INHALE DAILY@1999 [facility] Last Admin: 04/02/22 08:32 Dose: 2 puff Documented By: KE Labs CBC & Chem 7: 04/01/22 11:20 04/01/22 11:20 Labs: Laboratory Results - last 24 hr 04/01/22 04/01/22 04/01/22 11:20 11:20 11:20 MCV 93.0 MCH 31.3 MCHC 33.7 RDW 12.8 Plt Count 203 MPV 10.1 Immature Gran % (Auto) Cancelled Neut % (Auto) Cancelled Lymph % (Auto) Cancelled Ray % (Auto) Cancelled Eos % (Auto) Cancelled Baso % (Auto) Cancelled Lymph # (Auto) Cancelled Ray # (Auto) Cancelled Eos # (Auto) Cancelled Baso # (Auto) Cancelled Abs Immat Gran (auto) Cancelled Absolute Neuts (auto) Cancelled Absolute Nucleated RBC 0.000 Nucleated RBC % (auto) 0.0 Neutrophils % (Manual) 58 Band Neutrophils % 7 H Lymphocytes % (Manual) 13 L Monocytes % (Manual) 20 H Metamyelocytes % 2 Abs Neuts (Manual) 6.3 Lymphocytes # (Manual) 1.3 Monocytes # (Manual) 1.9 H Metamyelocytes # 0.2 Platelet Estimate NORMAL Plt Morphology Comment NORMAL RBC Morphology NOTED Polychromasia 1+ (0-2) Anion Gap 22 H Estim Creat Clear Calc 64.7 Estimated GFR > 60 Random Glucose 159 H Lactic Acid Lactic Acid F/U @ 2Hr Calcium 8.7 Magnesium 2.3 Total Bilirubin 0.7 Direct Bilirubin 0.2 AST 32 D ALT 28 Alkaline Phosphatase 82 D Troponin I High Sens 3.6 C-Reactive Protein 33.44 H B-Natriuretic Peptide 33 Total Protein 6.6 Albumin 3.7 Procalcitonin Urine Color Urine Appearance Urine pH Ur Specific [place] Urine Protein Urine Glucose (UA) Urine Ketones Urine Blood Urine Nitrite Ur Leukocyte Esterase Urine RBC Urine WBC Ur Squamous Epith Cells Urine Bacteria Hyaline Casts Respiratory Panel [place] Adenovirus (Rapid PCR) B.pert (TEM-PCR) B.parapertussis DNA PCR C. pneumoniae DNA (PCR) Coronavirus OC43 (PCR) Coronavirus HKU1 (PCR) Coronavirus 229E (PCR) Coronavirus NL63 (PCR) Human Metapneumovir PCR Influenza A (RT-PCR) Influenza Type A (PCR) Influenza B (RT-PCR) Influenza Type B (PCR) M. pneumoniae (PCR) Parainfluenza 1 (PCR) Parainfluenza 2 (PCR) Parainfluenza 3 (PCR) Parainfluenza 4 (PCR) RSV (PCR) RSV RNA Qual (PCR) Entero/Rhino (PCR) SARS-CoV-2 RNA (RT-PCR) 04/01/22 04/01/22 04/01/22 11:20 11:20 11:39 MCV MCH MCHC RDW Plt Count MPV Immature Gran % (Auto) Neut % (Auto) Lymph % (Auto) Ray % (Auto) Eos % (Auto) Baso % (Auto) Lymph # (Auto) Ray # (Auto) Eos # (Auto) Baso # (Auto) Abs Immat Gran (auto) Absolute Neuts (auto) Absolute Nucleated RBC Nucleated RBC % (auto) Neutrophils % (Manual) Band Neutrophils % Lymphocytes % (Manual) Monocytes % (Manual) Metamyelocytes % Abs Neuts (Manual) Lymphocytes # (Manual) Monocytes # (Manual) Metamyelocytes # Platelet Estimate Plt Morphology Comment RBC Morphology Polychromasia Anion Gap Estim Creat Clear Calc Estimated GFR Random Glucose Lactic Acid 3.0 H* Lactic Acid F/U @ 2Hr Calcium Magnesium Total Bilirubin Direct Bilirubin AST ALT Alkaline Phosphatase Troponin I High Sens C-Reactive Protein B-Natriuretic Peptide Total Protein Albumin Procalcitonin 0.41 Urine Color Urine Appearance Urine pH Ur Specific [place] Urine Protein Urine Glucose (UA) Urine Ketones Urine Blood Urine Nitrite Ur Leukocyte Esterase Urine RBC Urine WBC Ur Squamous Epith Cells Urine Bacteria Hyaline Casts Respiratory Panel [place] Adenovirus (Rapid PCR) B.pert (TEM-PCR) B.parapertussis DNA PCR C. pneumoniae DNA (PCR) Coronavirus OC43 (PCR) Coronavirus HKU1 (PCR) Coronavirus 229E (PCR) Coronavirus NL63 (PCR) Human Metapneumovir PCR Influenza A (RT-PCR) Influenza Type A (PCR) NEGATIVE Influenza B (RT-PCR) Influenza Type B (PCR) NEGATIVE M. pneumoniae (PCR) Parainfluenza 1 (PCR) Parainfluenza 2 (PCR) Parainfluenza 3 (PCR) Parainfluenza 4 (PCR) RSV (PCR) RSV RNA Qual (PCR) NEGATIVE Entero/Rhino (PCR) SARS-CoV-2 RNA (RT-PCR) NEGATIVE 04/01/22 04/01/22 04/01/22 13:27 13:52 16:40 MCV MCH MCHC RDW Plt Count MPV Immature Gran % (Auto) Neut % (Auto) Lymph % (Auto) Ray % (Auto) Eos % (Auto) Baso % (Auto) Lymph # (Auto) Ray # (Auto) Eos # (Auto) Baso # (Auto) Abs Immat Gran (auto) Absolute Neuts (auto) Absolute Nucleated RBC Nucleated RBC % (auto) Neutrophils % (Manual) Band Neutrophils % Lymphocytes % (Manual) Monocytes % (Manual) Metamyelocytes % Abs Neuts (Manual) Lymphocytes # (Manual) Monocytes # (Manual) Metamyelocytes # Platelet Estimate Plt Morphology Comment RBC Morphology Polychromasia Anion Gap Estim Creat Clear Calc Estimated GFR Random Glucose Lactic Acid Lactic Acid F/U @ 2Hr 1.7 Calcium Magnesium Total Bilirubin Direct Bilirubin AST ALT Alkaline Phosphatase Troponin I High Sens C-Reactive Protein B-Natriuretic Peptide Total Protein Albumin Procalcitonin Urine Color Yellow Urine Appearance Cloudy Urine pH 5.5 Ur Specific [place] 1.020 Urine Protein 100 (2+) H Urine Glucose (UA) Negative Urine Ketones 40 Urine Blood Trace H Urine Nitrite Negative Ur Leukocyte Esterase Negative Urine RBC 0-2 Urine WBC 0-5 Ur Squamous Epith Cells 6-10 Urine Bacteria None Seen Hyaline Casts 3-5 Respiratory Panel [place] See Note Adenovirus (Rapid PCR) Not Detected B.pert (TEM-PCR) Not Detected B.parapertussis DNA PCR Not Detected C. pneumoniae DNA (PCR) Not Detected Coronavirus OC43 (PCR) Not Detected Coronavirus HKU1 (PCR) Not Detected Coronavirus 229E (PCR) Not Detected Coronavirus NL63 (PCR) Not Detected Human Metapneumovir PCR Not Detected Influenza A (RT-PCR) Not Detected Influenza Type A (PCR) Influenza B (RT-PCR) Not Detected Influenza Type B (PCR) M. pneumoniae (PCR) Not Detected Parainfluenza 1 (PCR) Not Detected Parainfluenza 2 (PCR) Not Detected Parainfluenza 3 (PCR) Not Detected Parainfluenza 4 (PCR) Not Detected RSV (PCR) Not Detected RSV RNA Qual (PCR) Entero/Rhino (PCR) Detected A SARS-CoV-2 RNA (RT-PCR) Not Detected Assessment and Plan (1) Acute respiratory failure with hypoxia: Status: Acute (2) COPD exacerbation: Status: Acute (3) Viral infection: Status: Acute Plan 81 yo male with history of COPD/asthma, former heavy smoker, HTN, HLD, peripheral artery disease with history of carotid angioplasty, and macular degeneration admitted for acute COPD exacerbation with? acute hypoxemic respiratory failure. #? Acute hypoxemic respiratory failure secondary to COPD exacerbation precipitated by Enterovirus/rhinovirus -? oximetry of 85% on arrival.? Now improved but still requiring O2, not on home O2 - continue supplemental oxygen to maintain oximetry of 92% - treat COPD exacerbation as below #? acute COPD exacerbation likely secondary to viral infection - recent contact with sick grandchildren.? COVID-19 and influenza negative.? viral respiratory panel showing entero/rhinovirus. Procalcitonin negative - CXR with bibasilar atelectasis? And scarring right lung base. pneumonia less likely - No leukocytosis. tachypnea secondary to COPD exacerbation and hypoxia, tachycardia secondary to albuterol use.? Lactic acid 3.0 likely secondary to hypoxia and albuterol use, not Severe sepsis - 40 mg IV Solu-Medrol b.i.d. - azithromycin 500 mg daily x3 days - DuoNebs q.4h while awake - continue supplemental O2 as above - continue home maintenance inhalers - guaifenesin p.r.n. for cough - Follow blood cultures #Enterovirus/rhinovirus -Respiratory panel positive -symptomatic management -Droplet/contact precautions #? hypertension- reasonably controlled - continue lisinopril, metoprolol # GERD - continue famotidine # PA D - continue aspirin and Plavix ?DVT prophylaxis-Lovenox ?full code ?Need for inpatient: ongoing respiratory failure, need for O2 Quality Stroke Does the patient have a stroke diagnosis?: No VTE Prior VTE?: No VTE Risk Level:: Medical - moderate - high VTE Device Contraindication: Treatment Not Indicated VTE Drug Contraindication: N/A - Med Ordered
[2022-04-02] MEDS: Enoxaparin Sodium 40 MG/0.4 ML SYRINGE SUBCUT (16:14)
[2022-04-02] MEDS: Azithromycin 500 MG in 0.9 % Sodium Chloride 250 ML 125 MG IV (16:15)
--- NOTE | 2022-04-02 17:12 | MHC.CM.PN ---
Addendum entered by Kristina Nettles 04/02/22 17:17: No DME/services. Original Note: IMM 04/02.Pt is an [employer]. Pt has Vet insurance and [employer] Medicare Advantage. 100% vet connected. Lives alone. Independent. Drives. Goes to local gym. No covid vaccines. Declines any Covid vaccinations. States had Covid in 2019 and is fine. HCP on file. HCP/daughter Sammie Gil ([phone]). D/C plan: Home without services. Pt to arrange transport home. CM to follow for d/c needs.
[2022-04-02] MEDS: lisinopriL 20 MG TABLET PO (21:07)
[2022-04-02] MEDS: Aspirin Enteric Coated 81 MG TABLET.DR PO (21:07)
[2022-04-02] MEDS: Famotidine 20 MG TABLET 40 MG PO (21:08)
[2022-04-02] MEDS: Metoprolol Succinate ER 50 MG TAB.ER.24H PO (21:08)
[2022-04-02] MEDS: Montelukast Sodium 10 MG TABLET PO (21:08)
--- NOTE | 2022-04-02 21:19 | PC.NURSE ---
Pt meds were administered,pt seems to have difficulty breathing, audible wheezing during expiration. nurse will be calling archi to f/u on treatment management. Pt was 94 % on 2L. will continue to monitor.
[2022-04-03] VITALS (10 sets, daily range): BP systolic 132–141; BP diastolic 63–70; PULSE 72–94; RESP 15–24; TEMP 36.4–36.6; O2SAT 87–96; BMI 29.7
[2022-04-03] MEDS: 0.9 % Sodium Chloride Flush 3 ML SYRINGE IVFLUSH ×4 (01:12→21:35)
[2022-04-03] MEDS: guaiFENesin 200 MG/10 ML 10 ML LIQUID PO ×2 (02:00→22:06)
--- NOTE | 2022-04-03 02:02 | PC.NURSE ---
Pt is coughing frequently continuos wheezing, and w/ yellow sputum, Pt was given cough medicine. will continue to monitor.
[2022-04-03] MEDS: Fluticasone/Vilanterol 200/25 BLST.W.DEV 1 PUFF INHALE (08:45)
[2022-04-03] MEDS: Albuterol/Iprat 2.5/0.5MG 3 ML AMPUL.NEB INHALE ×5 (08:45→19:22)
[2022-04-03] MEDS: methylPREDNISolone Sod Succ 40 MG/ML VIAL IVPUSH ×2 (08:51→21:35)
[2022-04-03] MEDS: Multivitamin TABLET 1 TAB PO (08:51)
[2022-04-03] MEDS: Fluticasone Propionate Nasal 16 GM SPRAY 1 SPRAY NOSTRIL-B ×2 (09:12→21:38)
--- NOTE | 2022-04-03 13:58 | MHC.CM.PN ---
PT MEDICALLY CLEARED FOR D/C HOME W/NEW O2 WITH ACTIVIT FROM [facility] TO ARRANGE TRANSPORT.
--- NOTE | 2022-04-03 14:49 | PC.NURSE ---
pt was planned for discharge, became very winded with increased wheezing just getting dressed. pt did not feel comfortable getting discharged. provider aware
--- NOTE | 2022-04-03 15:33 | PC.NURSE ---
spoke w pt, pt currently feels uncomfortable w discharge, remains very sob v slight exertion, O2 dependent at 2L. pt also made RN aware that medication had been sent to [facility] pharmacy is listed as preferred in chart, pt received call from [place] stating that home O2 would not be covered. provider made aware of the above.
[2022-04-03] MEDS: Azithromycin 500 MG in 0.9 % Sodium Chloride 250 ML 125 MG IV (16:12)
[2022-04-03] MEDS: Enoxaparin Sodium 40 MG/0.4 ML SYRINGE SUBCUT (16:13)
--- NOTE | 2022-04-03 20:26 | PC.NURSE ---
RN-RN report given to [facility]
[2022-04-03] MEDS: Montelukast Sodium 10 MG TABLET PO (21:34)
[2022-04-03] MEDS: Aspirin Enteric Coated 81 MG TABLET.DR PO (21:34)
[2022-04-03] MEDS: Metoprolol Succinate ER 50 MG TAB.ER.24H PO (21:34)
[2022-04-03] MEDS: lisinopriL 20 MG TABLET PO (21:34)
[2022-04-03] MEDS: Famotidine 20 MG TABLET 40 MG PO (21:34)
[2022-04-04 07:46] VITALS: BP 154/72; PULSE 71; RESP 18; TEMP 35.8; O2SAT 94
[2022-04-04] MEDS: Albuterol/Iprat 2.5/0.5MG 3 ML AMPUL.NEB INHALE (08:03)
[2022-04-04] MEDS: Fluticasone/Vilanterol 200/25 BLST.W.DEV 1 PUFF INHALE (08:03)
[2022-04-04 08:04] VITALS: PULSE 65; RESP 16; O2SAT 94
[2022-04-04] MEDS: methylPREDNISolone Sod Succ 40 MG/ML VIAL IVPUSH (08:56)
[2022-04-04] MEDS: Multivitamin TABLET 1 TAB PO (08:56)
[2022-04-04] MEDS: Fluticasone Propionate Nasal 16 GM SPRAY 1 SPRAY NOSTRIL-B (08:56)
[2022-04-04] MEDS: 0.9 % Sodium Chloride Flush 3 ML SYRINGE IVFLUSH (08:57)
--- NOTE | 2022-04-04 10:14 | P.DS_ITS ---
DS: Providers Provider Date of Service: 04/03/22 Date of admission: 04/01/22 13:21 Primary care physician: Ashleigh Watts MD DS: Diagnosis Discharge Diagnosis (1) Acute respiratory failure with hypoxia: Status: Acute (2) COPD exacerbation: Status: Acute (3) Viral infection: Status: Acute DS: Summary Hospital Course Hospital Course: Admission HPI: Chief Complaint: sob, wheezing, cough 81 yo male with history of COPD/asthma, former heavy smoker, HTN, HLD who is presenting to the ER with 6-7 days of worsening URI symptoms including SOB, productive cough, runny nose, decreased appetite and generally not feeling well. He has been around his granddaughters this week who were sick with the flu. He states his symptoms started Monday 03/26 and have gotten worse each day. He stat es his symptoms are worse at night and he feels like he is drowning when he lays down. He has been using his nebulizer this week, every 3 hours with minimal relief. He has been having fevers and chills. No nausea or vomiting but decreased appetite. He has discomfort in his chest when he is coughing and can't bring up the phlegm. Sputum is white. No hemoptysis. On arrival, mildly tachycardia 100, tachypneic 24, hypoxic 85% on RA, placed on 2.5L NC with improvement to 92-94%. CXR showing bilateral atelectasis and RLL scarring without any focal consolidation. WBC 9.7 with mild bandemia 7%, lactic acid 3.0, repeat pending. COVID-19 and influenza negative. Respiratory panel pending. Procalcitonin pending. Trop neg, BNP normla. CRP 33.44. To be admitted for COPD exacerbation with acute hypoxemic respiratory failure. Hospital course: #This patient likely has chronic respiraotry failure due to COPD and presented with acute exacerbation with acute respiratory and hypoxia and this was likely trigered by Enterovirus/rhinovirus from exposure from grand kids. He has been treated with bronchodilator schedule and p.r.n.. , oxygen, empiric azithromycin, and intravenous steroid which will not be converted to oral prednisone to be treated for an additional 3 days. Due to persistent hypoxia the patient has been evaluated for home oxygen which he qualify for 2 L continuously. He will complete a course of azithromycin for possible superimposed bronchitis. #Enterovirus/rhinovirus -Respiratory panel positive -symptomatic management -Droplet/contact precautions were followed At this point patient feel comfortable going home with prescribed regimen. Time Spent with Patient Time attestation: Total time spent providing and/or coordinating discharge services: Discharge coordination time: Greater than 30 minutes Quality: Safe Use of Opioids Does Pt have an Active Cancer Diagnosis on the Problem List?: No Quality: Stroke Does the patient have a stroke diagnosis?: No Physical Exam Vital Signs: Vital Signs: Last Vital Signs Temp 97.9 F 04/03/22 08:44 Pulse 77 04/03/22 11:28 Resp 20 04/03/22 11:28 BP 132/70 04/03/22 08:44 Pulse Ox 93 04/03/22 08:44 O2 Del Method 04/03/22 08:44 O2 Flow Rate 2 04/03/22 08:44 Oxygen Flow Rate 1 04/02/22 21:17 BMI result Body Mass Index 29.5 DS: Data Data Completed and Pending Labs on day of discharge: Preliminary micro results at discharge 04/01/22 11:39 Blood Culture - Preliminary Blood - Venous No growth after 24 hours. 04/01/22 11:20 Blood Culture - Preliminary Blood - Venous No growth after 24 hours. Discharge Plan Discharge Anticipated Discharge Date/Time: 04/03/22 12:04 Patient Disposition: Home, Self-Care Discharge Diagnosis: COPD exacerbation, acute respiratory failure Referrals: Ashleigh Watts MD [Primary Care Provider] - 1 Week Discharge Medications: New prednisone 20 mg tablet 40 mg PO DAILY Qty: 6 0RF azithromycin 250 mg tablet 250 mg PO DAILY 3 Days Qty: 3 0RF Continued metoprolol succinate 50 mg Tablet Extended Release 24 Hr 50 mg PO BEDTIME lisinopril 20 mg Tablet 20 mg PO BEDTIME famotidine 40 mg Tablet 40 mg PO BEDTIME aspirin 81 mg Tablet,Delayed Release (Dr/Ec) 81 mg PO BEDTIME montelukast 10 mg Tablet 10 mg PO BEDTIME PreserVision AREDS-2 250-90-40-1 mg Capsule 1 tab PO BID albuterol sulfate 2.5 mg /3 mL (0.083 %) Solution For Nebulization 2.5 mg INHALATION Q6H PRN (Reason: Shortness Of Breath) fluticasone propion-salmeterol [Wixela Inhub] 500-50 mcg/dose Blister With Device 1 inh INHALATION BID albuterol sulfate [ProAir HFA] 90 mcg/actuation Hfa Aerosol Inhaler 1 inh INHALATION Q4H PRN (Reason: Shortness Of Breath) tiotropium bromide 2.5 mcg/actuation Mist 2 puff INHALATION BEDTIME Discharge Orders: Discharge Order (Routine); Ordered 04/03/22 Ordered By: Mich Ruiz Diet: Advance to usual diet Activity on Discharge: As tolerated Stand Alone Forms: Patient Portal Discharge page Care Plan Goals: Full recovery from COPD Health Concerns: COPD with chronic respiratory failure Plan of Treatment: Use inhalers, take prednisone as directed avoid smoking Use oxygen at 2 liters/minute as directed. Assessment: As above
--- NOTE | 2022-04-04 11:25 | PC.NURSE ---
report received from overnight RN. no c/o pain, pt reports his breathing feels better. test center administrator per AUG. Pt to be discharged today. Discharge education and packet given to pt, pt verbalized understanding. Pt going home on 2L O2, two oxygen tanks given to pt by respiratory. Pt verbalized no further questions. IV removed, belongings returned.
--- NOTE | 2022-04-04 11:41 | MHC.CM.PN ---
Male 81 DX COPD Discharge to home today selfcare. He qualifies for Home Oxygen. Home O2 has been arranged by [facility]piratory thru the [place]. The Vendor is [facility]. @L at rest and 2L with ambulation. The patient has arranged for transportation home.
== END 2022-04-04 12:05 | disposition home or self-care (01) | DRG 190 ==
LOC: HO.ED 11:38 → HO.EDOVER 13:31 → HO.IMC 04-03 19:09
PROVIDERS: Physician Assistant; Physician Assistant Surgical; Admitting Provider Physician Assistant; Emergency Provider Emergency Medicine; PCP Internal Medicine; Visit Provider Internal Medicine
DX: J44.1 Chronic obstructive pulmonary disease with (acute) exacerbation (principal); J96.21 Acute and chronic respiratory failure with hypoxia; E87.20 Acidosis, unspecified; E78.5 Hyperlipidemia, unspecified; I10 Essential (primary) hypertension; I73.9 Peripheral vascular disease, unspecified; K21.9 Gastro-esophageal reflux disease without esophagitis; B34.1 Enterovirus infection, unspecified; B34.8 Other viral infections of unspecified site; Z20.822 Contact with and (suspected) exposure to COVID-19; Z87.891 Personal history of nicotine dependence; Z79.82 Long term (current) use of aspirin; Z79.51 Long term (current) use of inhaled steroids; Z79.899 Other long term (current) drug therapy
CPT/HCPCS: 0241U; 36415; 71045; 80048; 80076; 81001; 83605; 83735; 83880; 84145; 84484; 85007; 85025; 85027; 86140; 87040; 87633; 93005; 94640; 99285; J0456; J1650; J2920; J2930; J3475

== ENCOUNTER 2022-05-07 15:01 | Emergency (ER) | payer OTHER, SELFPAY ==
--- NOTE | ~2022-05-07 | CT_ITS ---
EXAMINATION: CT HEAD WITHOUT CONTRAST CLINICAL INFORMATION: Dizziness COMPARISON: MRI of brain 02/14/2007 TECHNIQUE: Contiguous axial imaging was performed from the skull base to vertex without intravenous administration of contrast. Coronal and sagittal reformatted images are performed at the CT scanner. [This CT examination was performed using dose optimization techniques as appropriate, variously including the following: *Automated exposure control *Adjustment of mA and/or kV according to patient size (this includes techniques or standardized protocols for targeted exams where dose is matched to indication/reason for exam; i.e. extremities or head) *Use of iterative reconstruction technique] DLP: 708 mGy-cm. FINDINGS: There is no evidence of acute intracranial hemorrhage or territorial infarction. No abnormal mass-effect or midline shift is seen. Tuttle to white matter differentiation is well preserved. No extra-axial fluid collections are identified. There is generalized global volume loss. There is mild prominence of the ventricles and the sulci . There is mild hypodensity of the periventricular white matter due to chronic small vessel ischemic disease. There are vascular calcifications of the internal carotid arteries bilaterally. There is no osseous abnormality. The mastoid air cells and visualized portions of the paranasal sinuses are well-aerated. CT/CT head/brain wo IV con IMPRESSION: No acute intracranial pathology.
--- NOTE | ~2022-05-07 | XR_ITS ---
EXAMINATION: XR CHEST CLINICAL INFORMATION: Chest pain. COMPARISON: 04/01/2022 chest radiograph. TECHNIQUE: Frontal view of the chest was obtained. FINDINGS: No significant abnormality is noted involving the heart, lungs, mediastinum, bony thorax or soft tissues. XR/XR chest 1V IMPRESSION: Unremarkable examination.
--- NOTE | 2022-05-07 15:04 | ECG_ITS ---
Test Reason : POSSIBLE STEMI Blood Pressure : / mmHG Vent. Rate : 075 BPM Atrial Rate : 075 BPM P-R Int : 204 ms QRS Dur : 106 ms QT Int : 382 ms P-R-T Axes : 063 -43 057 degrees QTc Int : 426 ms Sinus rhythm with Premature supraventricular complexes Left anterior fascicular block Incomplete right bundle branch block Minimal voltage criteria for LVH, may be normal variant ( Emelle product ) Abnormal ECG When compared with ECG of 01-APR-2022 12:28, Premature supraventricular complexes are now Present Incomplete right bundle branch block is now Present Heart rate has decreased Referred By: Linda Roche Electronically Signed By:CASSANDRA HERNANDEZ MD
--- NOTE | 2022-05-07 15:05 | ED_ITS ---
HPI - General Adult General Chief complaint: Dyspnea <BALBINA Enamorado - Last Filed: 05/07/22 15:10> Stated complaint: Chest pain/Dizz[facility] <BALBINA Enamorado - Last Filed: 05/07/22 15:10> Time Seen by Provider: 05/07/22 22:24 <BALBINA Enamorado - Last Filed: 05/07/22 15:10> Source: patient <Kiesha Reddy CNP - Last Filed: 05/07/22 22:56> Mode of arrival: ambulatory <Kiesha Reddy CNP - Last Filed: 05/07/22 22:56> Limitations: no limitations <Kiesha Reddy CNP - Last Filed: 05/07/22 22:56> History of Present Illness HPI narrative: Patient is a 81-year-old woman presents to the emergency department sharp of chest pain and intermittent shortness of breath. Onset of symptoms was 2 weeks ago. It is described as a substernal discomfort. He does report that he recently started exercising, and he states that it feels like he ?over did it?. He has also reported intermittent lightheadedness over the past few months. He states he has been having difficulty getting an appointment with his primary ca re provider. Today he spoke with a nurse from the [place] by telephone who was concerned about his symptoms and advised him to come to the emergency department. Denies headache, vision changes, neck pain, neck stiffness, palpitations, dyspnea on exertion, nausea, vomiting, abdominal pain, numbness or tingling of the extremities, weakness, dysuria, urinary frequency. <Kiesha Reddy CNP - Last Filed: 05/07/22 22:56> Related Data Home medications: Home Medications Medication Instructions Recorded Confirmed aspirin 81 mg tablet,delayed 81 mg PO BEDTIME 01/03/22 04/01/22 release famotidine 40 mg tablet 40 mg PO BEDTIME 01/03/22 04/01/22 lisinopril 20 mg tablet 20 mg PO BEDTIME 01/03/22 04/01/22 metoprolol succinate 50 mg 50 mg PO BEDTIME 01/03/22 04/01/22 tablet,extended release 24 hr montelukast 10 mg tablet 10 mg PO BEDTIME 01/03/22 04/01/22 vit C 250 mg-vit E 90 mg-zinc 40 1 tab PO BID 01/03/22 04/01/22 mg-copper 1 [id number] capsule (PreserVision AREDS-2) albuterol sulfate 2.5 mg/3 mL 2.5 mg inhalation Q6H PRN 04/01/22 04/01/22 (0.083 %) solution for nebulization Shortness Of Breath albuterol sulfate 90 mcg/actuation 1 inh inhalation Q4H PRN Shortness 04/01/22 04/01/22 aerosol inhaler (ProAir HFA) Of Breath fluticasone 500 mcg-salmeterol 50 1 inh inhalation BID 04/01/22 04/01/22 mcg/dose blistr powdr for inhalation (Wixela Inhub) tiotropium bromide 2.5 2 puff inhalation BEDTIME 04/01/22 04/01/22 mcg/actuation mist for inhalation Previous Rx's Medication Instructions Recorded azithromycin 250 mg tablet 250 mg PO DAILY 3 days #3 tabs 04/03/22 prednisone 20 mg tablet 40 mg PO DAILY #6 tabs 04/03/22 azithromycin 250 mg tablet 250 mg PO DAILY 3 days #3 tabs 04/04/22 prednisone 20 mg tablet 40 mg PO DAILY #6 tabs 04/04/22 <BALBINA Enamorado - Last Filed: 05/07/22 15:10> Allergies/adverse reactions: Allergies Allergy/AdvReac Type Severity Reaction Status Date / Time No Known Allergies Allergy Verified 10/09/20 16:26 <BALBINA Enamorado - Last Filed: 05/07/22 15:10> Review of Systems Review of Systems: Constitutional : No Weight loss, No Fever, No Chills ENT/Mouth :? No sore throat, No Rhinorrhea Eyes: No Eye Pain, No Swelling Cardiovascular : pos Chest Pain, pos SOB, no Dyspnea on Exertion, No Orthopnea, No Edema, No Palpitations Respiratory : No Cough, No Sputum Gastrointestinal : no Nausea, No Vomiting, No Diarrhea, No abdominal Pain, No Hematochezia, No Melena Genitourinary : No Dysuria, No Urinary Frequency Musculoskeletal : No joint pain, No Myalgias, No Joint Swelling Skin : No Skin Lesions, No rash Neuro : No Weakness, No Numbness, No Dizziness, No Headache Psych : No Anxiety/Panic, No Depression Heme/Lymph: No Bruising, No Lymphadenopathy Endocrine : No Polyuria, No Polydipsia <Kiesha Reddy CNP - Last Filed: 05/07/22 22:56> Yes all other systems are reviewed and are negative <Kiesha Reddy CNP - Last Filed: 05/07/22 22:56> [facility] Past Medical History Attestation statement: The following information was validated with the patient. <Kiesha Reddy CNP - Last Filed: 05/07/22 22:56> Source: old records reviewed <Kiesha Reddy CNP - Last Filed: 05/07/22 22:56> Medical History: Medical History Asthma Carotid stenosis COPD (chronic obstructive pulmonary disease) HTN (hypertension) Hyperlipidemia Macular degeneration <BALBINA Enamorado - Last Filed: 05/07/22 15:10> Surgical History: Surgical History History of carotid angioplasty <BALBINA Enamorado - Last Filed: 05/07/22 15:10> Family History Family History: Family History Mother Unknown family medical history Father Unknown family medical history <BALBINA Enamorado - Last Filed: 05/07/22 15:10> Social History Social History: Social History Household Members: None Housing: House Do you presently have visiting nurse or other home services: No Patient Tobacco Use Status: Former Tobacco user Quit Date: 1984 Tobacco use type: Cigarette, Cigar and Pipe e-Cigarette/Vaping Use: Never Used Advance Directives: Yes Advance Directives on File: Yes Advance Directives Date on File: 01/04/22 service: Yes Current occupational status: retired <BALBINA Enamorado - Last Filed: 05/07/22 15:10> Physical Exam ED Vital Signs: Vital Signs - 24 hr 05/07/22 15:06 05/07/22 21:47 05/07/22 22:26 Temperature 97.4 F 97.5 F Pulse Rate 74 77 80 Respiratory Rate 16 18 Blood Pressure 115/76 165/82 H Pulse Oximetry 96 95 95 Oxygen Delivery Method Room Air Room Air Room Air BMI result Body Mass Index 28.0 <BALBINA Enamorado - Last Filed: 05/07/22 15:10> Vital Signs - 24 hr 05/07/22 15:06 05/07/22 21:47 05/07/22 22:26 Temperature 97.4 F 97.5 F Pulse Rate 74 77 80 Respiratory Rate 16 18 Blood Pressure 115/76 165/82 H Pulse Oximetry 96 95 95 Oxygen Delivery Method Room Air Room Air Room Air BMI result Body Mass Index 28.0 <Kiesha Reddy CNP - Last Filed: 05/07/22 22:56> Appearance: Alert.?Oriented to person, place and time. No acute distress.?Normal affect. Eyes: Pupils equal, round and reactive to light.? ENT: Pharynx normal.?? Neck: Normal inspection.? Neck supple.?? CVS: Heart sounds normal. Normal heart rate and rhythm.? Pulses normal.?? Respiratory: No respiratory distress.? Lung sounds clear to auscultation bilaterally?? Abdomen: Soft and non-tender. Normoactive bowel sounds. Skin: Skin warm and dry.? Normal skin color.? Extremities: No lower extremity edema.? Neuro: Moves all extremities spontaneously. Sensation intact bilaterally. CN II- XII intact. No focal neuro deficits. Ambulates with normal steady gait. <Kiesha Reddy CNP - Last Filed: 05/07/22 22:56> Course Course Course Narrative: Patient is a 81-year-old male with a past medical history of hypertension, asthma, carotid stenosis, COPD who presents to the emergency department for evaluation chest pain and shortness of breath over the past 2 weeks. Chest pain is reproducible to palpation/movement. At the time examination he is well- appearing, nontoxic. Reviewed RME. CBC and CMP overall unremarkable. D-dimer 171, not consistent with pulmonary embolism. BNP <10. Troponin <3.5, EKG revea ls sinus rhythm, incomplete right bundle-branch block, overall unchanged when compared to prior EKG in March 2022, unlikely ACS. Chest x-ray reveals no acute cardiopulmonary process, head CT without acute intracranial process. Given recent exercise regimen, I suspect the chest pain may be secondary to costochondritis. I discussed the findings with patient. Discussed plan of care for discharge home, outpatient follow-up with primary care provider within the next week. Reviewed worrisome signs and symptoms to return back to emergency department for. All questions answered. Discharged in stable condition. <Kiesha Reddy CNP - Last Filed: 05/07/22 22:56> Reevaluation(s) Reevaluation #1: RME: 81 year old male hx htn, asthma presents w/ sob, chest discomfort X 2 weeks. Reports dizziness ( described as lightheaded) for a few months. Sent in by [place] triage telenurse who thought he was having a [place]. Not on blood thinners. Denies headache, vision changes, nausea, vomiting, abdominal pain, weakness. No hx of PE/DVT. Non smoker, former smoker 35 years ago. No hx of stroke or [place]. Ambulating into triage w/o difficulty PE: benign nihss-0 Plan: EKG, trop, dimer, cxr, bnp <BALBINA Enamorado - Last Filed: 05/07/22 15:10> Time: 15:07 <BALBINA Enamorado - Last Filed: 05/07/22 15:10> Medical Decision Making Medical Records Medical records reviewed: Yes I reviewed the patient's medical records. <Kiesha Reddy CNP - Last Filed: 05/07/22 22:56> Lab Data Lab results reviewed: Yes I reviewed the patient's lab results. <Kiesha Reddy CNP - Last Filed: 05/07/22 22:56> Result diagrams: : 05/07/22 15:17 05/07/22 15:17 <BALBINA Enamorado - Last Filed: 05/07/22 15:10> Labs: Lab Results 05/07/22 05/07/22 05/07/22 Range/Units 15:17 15:17 15:17 WBC 7.7 (4.8-10.8) X10*3/uL RBC 5.00 (4.60-5.80) X10*6/uL Hgb 15.7 (14.0-18.0) g/dl Hct 47.5 (42.0-52.0) % MCV 95.0 (80.0-98.0) fL MCH 31.4 (27.0-33.0) pg MCHC 33.1 (31.0-36.0) g/dl RDW 13.2 (11.0-16.0) % Plt Count 224 (160-400) X10*3/uL MPV 9.1 L (9.4-12.4) fL Immature Gran % (Auto) 0.4 (0.0-0.4) % Neut % (Auto) 59.1 (45-73) % Lymph % (Auto) 29.9 (20-40) % [place] % (Auto) 9.1 (2-11) % Eos % (Auto) 0.9 (0-4) % Baso % (Auto) 0.6 (0-2) % Lymph # (Auto) 2.3 (1.2-4.9) X10*3/uL [place] # (Auto) 0.7 (0.1-1.2) X10*3/uL Eos # (Auto) 0.1 (0.0-0.4) X10*3/uL Baso # (Auto) 0.1 (0.0-0.2) X10*3/uL Abs Immat Gran (auto) 0.03 (0.00-0.03) X10*3/uL Absolute Neuts (auto) 4.6 (2.0-8.3) x10*3/uL Absolute Nucleated RBC 0.000 (0.0-0.012) X10*3/uL Nucleated RBC % (auto) 0.0 (0.0-0.2) /100WBC D-Dimer High Sensitivty 171 NG/ML Sodium 136 (135-145) mmol/L Potassium 4.2 (3.3-5.1) mmol/L Chloride 100 (96-108) mmol/L Carbon Dioxide 27 (22-29) mmol/L Anion Gap 13 (12-20) BUN 16 (9-16) mg/dL Creatinine 0.95 (0.5-1.4) mg/dL Estim Creat Clear Calc 68.5 Estimated GFR > 60 Random Glucose 88 (60-115) mg/dL Calcium 10.6 H D (8.4-10.2) mg/dL Magnesium 2.3 (1.6-2.6) mg/dL Total Bilirubin 0.4 (0.0-1.0) mg/dL AST 18 (5-37) U/L ALT 17 (0-40) U/L Alkaline Phosphatase 57 (39-117) U/L Troponin I High Sens (<3.5-35.0) ng/L B-Natriuretic Peptide (<100) pg/mL Total Protein 6.9 (6.5-8.0) g/dL Albumin 4.4 (3.5-5.0) g/dL Urine Color Urine Appearance Urine pH (5.0-9.0) Ur Specific [place] (1.005-1.025) Urine Protein (Neg-Trace) mg/dL Urine Glucose (UA) (Negative) mg/dL Urine Ketones (Negative) mg/dL Urine Blood (Negative) Urine Nitrite (Negative) Ur Leukocyte Esterase (Negative) COVID-19 (ROSA) (Negative) COVID-19 Clin Com 05/07/22 05/07/22 05/07/22 Range/Units 15:17 15:17 15:17 WBC (4.8-10.8) X10*3/uL RBC (4.60-5.80) X10*6/uL Hgb (14.0-18.0) g/dl Hct (42.0-52.0) % MCV (80.0-98.0) fL MCH (27.0-33.0) pg MCHC (31.0-36.0) g/dl RDW (11.0-16.0) % Plt Count (160-400) X10*3/uL MPV (9.4-12.4) fL Immature Gran % (Auto) (0.0-0.4) % Neut % (Auto) (45-73) % Lymph % (Auto) (20-40) % [place] % (Auto) (2-11) % Eos % (Auto) (0-4) % Baso % (Auto) (0-2) % Lymph # (Auto) (1.2-4.9) X10*3/uL [place] # (Auto) (0.1-1.2) X10*3/uL Eos # (Auto) (0.0-0.4) X10*3/uL Baso # (Auto) (0.0-0.2) X10*3/uL Abs Immat Gran (auto) (0.00-0.03) X10*3/uL Absolute Neuts (auto) (2.0-8.3) x10*3/uL Absolute Nucleated RBC (0.0-0.012) X10*3/uL Nucleated RBC % (auto) (0.0-0.2) /100WBC D-Dimer High Sensitivty NG/ML Sodium (135-145) mmol/L Potassium (3.3-5.1) mmol/L Chloride (96-108) mmol/L Carbon Dioxide (22-29) mmol/L Anion Gap (12-20) BUN (9-16) mg/dL Creatinine (0.5-1.4) mg/dL Estim Creat Clear Calc Estimated GFR Random Glucose (60-115) mg/dL Calcium (8.4-10.2) mg/dL Magnesium (1.6-2.6) mg/dL Total Bilirubin (0.0-1.0) mg/dL AST (5-37) U/L ALT (0-40) U/L Alkaline Phosphatase (39-117) U/L Troponin I High Sens < 3.5 (<3.5-35.0) ng/L B-Natriuretic Peptide < 10 (<100) pg/mL Total Protein (6.5-8.0) g/dL Albumin (3.5-5.0) g/dL Urine Color Urine Appearance Urine pH (5.0-9.0) Ur Specific [place] (1.005-1.025) Urine Protein (Neg-Trace) mg/dL Urine Glucose (UA) (Negative) mg/dL Urine Ketones (Negative) mg/dL Urine Blood (Negative) Urine Nitrite (Negative) Ur Leukocyte Esterase (Negative) COVID-19 (ROSA) Negative (Negative) COVID-19 Clin Com See Note 05/07/22 Range/Units 15:25 WBC (4.8-10.8) X10*3/uL RBC (4.60-5.80) X10*6/uL Hgb (14.0-18.0) g/dl Hct (42.0-52.0) % MCV (80.0-98.0) fL MCH (27.0-33.0) pg MCHC (31.0-36.0) g/dl RDW (11.0-16.0) % Plt Count (160-400) X10*3/uL MPV (9.4-12.4) fL Immature Gran % (Auto) (0.0-0.4) % Neut % (Auto) (45-73) % Lymph % (Auto) (20-40) % [place] % (Auto) (2-11) % Eos % (Auto) (0-4) % Baso % (Auto) (0-2) % Lymph # (Auto) (1.2-4.9) X10*3/uL [place] # (Auto) (0.1-1.2) X10*3/uL Eos # (Auto) (0.0-0.4) X10*3/uL Baso # (Auto) (0.0-0.2) X10*3/uL Abs Immat Gran (auto) (0.00-0.03) X10*3/uL Absolute Neuts (auto) (2.0-8.3) x10*3/uL Absolute Nucleated RBC (0.0-0.012) X10*3/uL Nucleated RBC % (auto) (0.0-0.2) /100WBC D-Dimer High Sensitivty NG/ML Sodium (135-145) mmol/L Potassium (3.3-5.1) mmol/L Chloride (96-108) mmol/L Carbon Dioxide (22-29) mmol/L Anion Gap (12-20) BUN (9-16) mg/dL Creatinine (0.5-1.4) mg/dL Estim Creat Clear Calc Estimated GFR Random Glucose (60-115) mg/dL Calcium (8.4-10.2) mg/dL Magnesium (1.6-2.6) mg/dL Total Bilirubin (0.0-1.0) mg/dL AST (5-37) U/L ALT (0-40) U/L Alkaline Phosphatase (39-117) U/L Troponin I High Sens (<3.5-35.0) ng/L B-Natriuretic Peptide (<100) pg/mL Total Protein (6.5-8.0) g/dL Albumin (3.5-5.0) g/dL Urine Color Yellow Urine Appearance Clear Urine pH 6.0 (5.0-9.0) Ur Specific [place] 1.020 (1.005-1.025) Urine Protein Negative (Neg-Trace) mg/dL Urine Glucose (UA) Negative (Negative) mg/dL Urine Ketones Negative (Negative) mg/dL Urine Blood Negative (Negative) Urine Nitrite Negative (Negative) Ur Leukocyte Esterase Negative (Negative) COVID-19 (ROSA) (Negative) COVID-19 Clin Com <BALBINA Enamorado - Last Filed: 05/07/22 15:10> Lab Results 05/07/22 05/07/22 05/07/22 Range/Units 15:17 15:17 15:17 WBC 7.7 (4.8-10.8) X10*3/uL RBC 5.00 (4.60-5.80) X10*6/uL Hgb 15.7 (14.0-18.0) g/dl Hct 47.5 (42.0-52.0) % MCV 95.0 (80.0-98.0) fL MCH 31.4 (27.0-33.0) pg MCHC 33.1 (31.0-36.0) g/dl RDW 13.2 (11.0-16.0) % Plt Count 224 (160-400) X10*3/uL MPV 9.1 L (9.4-12.4) fL Immature Gran % (Auto) 0.4 (0.0-0.4) % Neut % (Auto) 59.1 (45-73) % Lymph % (Auto) 29.9 (20-40) % [place] % (Auto) 9.1 (2-11) % Eos % (Auto) 0.9 (0-4) % Baso % (Auto) 0.6 (0-2) % Lymph # (Auto) 2.3 (1.2-4.9) X10*3/uL [place] # (Auto) 0.7 (0.1-1.2) X10*3/uL Eos # (Auto) 0.1 (0.0-0.4) X10*3/uL Baso # (Auto) 0.1 (0.0-0.2) X10*3/uL Abs Immat Gran (auto) 0.03 (0.00-0.03) X10*3/uL Absolute Neuts (auto) 4.6 (2.0-8.3) x10*3/uL Absolute Nucleated RBC 0.000 (0.0-0.012) X10*3/uL Nucleated RBC % (auto) 0.0 (0.0-0.2) /100WBC D-Dimer High Sensitivty 171 NG/ML Sodium 136 (135-145) mmol/L Potassium 4.2 (3.3-5.1) mmol/L Chloride 100 (96-108) mmol/L Carbon Dioxide 27 (22-29) mmol/L Anion Gap 13 (12-20) BUN 16 (9-16) mg/dL Creatinine 0.95 (0.5-1.4) mg/dL Estim Creat Clear Calc 68.5 Estimated GFR > 60 Random Glucose 88 (60-115) mg/dL Calcium 10.6 H D (8.4-10.2) mg/dL Magnesium 2.3 (1.6-2.6) mg/dL Total Bilirubin 0.4 (0.0-1.0) mg/dL AST 18 (5-37) U/L ALT 17 (0-40) U/L Alkaline Phosphatase 57 (39-117) U/L Troponin I High Sens (<3.5-35.0) ng/L B-Natriuretic Peptide (<100) pg/mL Total Protein 6.9 (6.5-8.0) g/dL Albumin 4.4 (3.5-5.0) g/dL Urine Color Urine Appearance Urine pH (5.0-9.0) Ur Specific [place] (1.005-1.025) Urine Protein (Neg-Trace) mg/dL Urine Glucose (UA) (Negative) mg/dL Urine Ketones (Negative) mg/dL Urine Blood (Negative) Urine Nitrite (Negative) Ur Leukocyte Esterase (Negative) COVID-19 (ROSA) (Negative) COVID-19 Clin Com 05/07/22 05/07/22 05/07/22 Range/Units 15:17 15:17 15:17 WBC (4.8-10.8) X10*3/uL RBC (4.60-5.80) X10*6/uL Hgb (14.0-18.0) g/dl Hct (42.0-52.0) % MCV (80.0-98.0) fL MCH (27.0-33.0) pg MCHC (31.0-36.0) g/dl RDW (11.0-16.0) % Plt Count (160-400) X10*3/uL MPV (9.4-12.4) fL Immature Gran % (Auto) (0.0-0.4) % Neut % (Auto) (45-73) % Lymph % (Auto) (20-40) % [place] % (Auto) (2-11) % Eos % (Auto) (0-4) % Baso % (Auto) (0-2) % Lymph # (Auto) (1.2-4.9) X10*3/uL [place] # (Auto) (0.1-1.2) X10*3/uL Eos # (Auto) (0.0-0.4) X10*3/uL Baso # (Auto) (0.0-0.2) X10*3/uL Abs Immat Gran (auto) (0.00-0.03) X10*3/uL Absolute Neuts (auto) (2.0-8.3) x10*3/uL Absolute Nucleated RBC (0.0-0.012) X10*3/uL Nucleated RBC % (auto) (0.0-0.2) /100WBC D-Dimer High Sensitivty NG/ML Sodium (135-145) mmol/L Potassium (3.3-5.1) mmol/L Chloride (96-108) mmol/L Carbon Dioxide (22-29) mmol/L Anion Gap (12-20) BUN (9-16) mg/dL Creatinine (0.5-1.4) mg/dL Estim Creat Clear Calc Estimated GFR Random Glucose (60-115) mg/dL Calcium (8.4-10.2) mg/dL Magnesium (1.6-2.6) mg/dL Total Bilirubin (0.0-1.0) mg/dL AST (5-37) U/L ALT (0-40) U/L Alkaline Phosphatase (39-117) U/L Troponin I High Sens < 3.5 (<3.5-35.0) ng/L B-Natriuretic Peptide < 10 (<100) pg/mL Total Protein (6.5-8.0) g/dL Albumin (3.5-5.0) g/dL Urine Color Urine Appearance Urine pH (5.0-9.0) Ur Specific [place] (1.005-1.025) Urine Protein (Neg-Trace) mg/dL Urine Glucose (UA) (Negative) mg/dL Urine Ketones (Negative) mg/dL Urine Blood (Negative) Urine Nitrite (Negative) Ur Leukocyte Esterase (Negative) COVID-19 (ROSA) Negative (Negative) COVID-19 Clin Com See Note 05/07/22 Range/Units 15:25 WBC (4.8-10.8) X10*3/uL RBC (4.60-5.80) X10*6/uL Hgb (14.0-18.0) g/dl Hct (42.0-52.0) % MCV (80.0-98.0) fL MCH (27.0-33.0) pg MCHC (31.0-36.0) g/dl RDW (11.0-16.0) % Plt Count (160-400) X10*3/uL MPV (9.4-12.4) fL Immature Gran % (Auto) (0.0-0.4) % Neut % (Auto) (45-73) % Lymph % (Auto) (20-40) % [place] % (Auto) (2-11) % Eos % (Auto) (0-4) % Baso % (Auto) (0-2) % Lymph # (Auto) (1.2-4.9) X10*3/uL [place] # (Auto) (0.1-1.2) X10*3/uL Eos # (Auto) (0.0-0.4) X10*3/uL Baso # (Auto) (0.0-0.2) X10*3/uL Abs Immat Gran (auto) (0.00-0.03) X10*3/uL Absolute Neuts (auto) (2.0-8.3) x10*3/uL Absolute Nucleated RBC (0.0-0.012) X10*3/uL Nucleated RBC % (auto) (0.0-0.2) /100WBC D-Dimer High Sensitivty NG/ML Sodium (135-145) mmol/L Potassium (3.3-5.1) mmol/L Chloride (96-108) mmol/L Carbon Dioxide (22-29) mmol/L Anion Gap (12-20) BUN (9-16) mg/dL Creatinine (0.5-1.4) mg/dL Estim Creat Clear Calc Estimated GFR Random Glucose (60-115) mg/dL Calcium (8.4-10.2) mg/dL Magnesium (1.6-2.6) mg/dL Total Bilirubin (0.0-1.0) mg/dL AST (5-37) U/L ALT (0-40) U/L Alkaline Phosphatase (39-117) U/L Troponin I High Sens (<3.5-35.0) ng/L B-Natriuretic Peptide (<100) pg/mL Total Protein (6.5-8.0) g/dL Albumin (3.5-5.0) g/dL Urine Color Yellow Urine Appearance Clear Urine pH 6.0 (5.0-9.0) Ur Specific [place] 1.020 (1.005-1.025) Urine Protein Negative (Neg-Trace) mg/dL Urine Glucose (UA) Negative (Negative) mg/dL Urine Ketones Negative (Negative) mg/dL Urine Blood Negative (Negative) Urine Nitrite Negative (Negative) Ur Leukocyte Esterase Negative (Negative) COVID-19 (ROSA) (Negative) COVID-19 Clin Com <Kiesha Reddy CNP - Last Filed: 05/07/22 22:56> Imaging Data Chest x-ray: Radiologist's impression: XR/XR chest 1V IMPRESSION: Unremarkable examination. <Kiesha Reddy CNP - Last Filed: 05/07/22 22:56> CT scan - head: Radiologist's impression: CT/CT head/brain wo IV con IMPRESSION: No acute intracranial pathology. ? <Kiesha Reddy CNP - Last Filed: 05/07/22 22:56> ECG Data Attestation: I personally reviewed and interpreted this ECG as follows: <Kiesha Reddy CNP - Last Filed: 05/07/22 22:56> Prior ECG tracings: available for review <Kiesha Reddy CNP - Last Filed: 05/07/22 22:56> Interpretation: Rate: 75 Rhythm:? Sinus rhythm with incomplete right bundle-branch block [place]:? Left axis deviation Normal P waves.? Normal GERMAINE.??? ST T wave :??No ST elevation, no ST depression qTC: 426 prior studies:? March 2022 The study has been interpreted contemporaneously by me. <Kiesha Reddy CNP - Last Filed: 05/07/22 22:56> Discharge Plan Discharge Clinical Impression: Acute costochondritis <BALBINA Enamorado - Last Filed: 05/07/22 15:10> Patient Disposition: Home, Self-Care <BALBINA Enamorado - Last Filed: 05/07/22 15:10> Instructions: Costochondritis (ED) <BALBINA Enamorado - Last Filed: 05/07/22 15:10> Additional Instructions: As discussed, it is suspected that your pain is secondary to muscular strain within the chest wall. You can take Tylenol 500 mg, 2 tablets (1,000mg) every 4-6 hours as needed for pain, but not to exceed 3 doses daily (3,000mg). Apply ice/heat to the area for 10-15 minutes 4-6 times daily. Follow-up with your primary care provider within the next week. Return to the emergency department any new or worsening symptoms or concerns. ? <BALBINA Enamorado - Last Filed: 05/07/22 15:10> Prescriptions: No Action metoprolol succinate 50 mg Tablet Extended Release 24 Hr 50 mg PO BEDTIME lisinopril 20 mg Tablet 20 mg PO BEDTIME famotidine 40 mg Tablet 40 mg PO BEDTIME aspirin 81 mg Tablet,Delayed Release (Dr/Ec) 81 mg PO BEDTIME montelukast 10 mg Tablet 10 mg PO BEDTIME PreserVision AREDS-2 250-90-40-1 mg Capsule 1 tab PO BID albuterol sulfate 2.5 mg /3 mL (0.083 %) Solution For Nebulization 2.5 mg INHALATION Q6H PRN (Reason: Shortness Of Breath) fluticasone propion-salmeterol [Wixela Inhub] 500-50 mcg/dose Blister With Device 1 inh INHALATION BID albuterol sulfate [ProAir HFA] 90 mcg/actuation Hfa Aerosol Inhaler 1 inh INHALATION Q4H PRN (Reason: Shortness Of Breath) tiotropium bromide 2.5 mcg/actuation Mist 2 puff INHALATION BEDTIME prednisone 20 mg tablet 40 mg PO DAILY Qty: 6 0RF azithromycin 250 mg tablet 250 mg PO DAILY 3 Days Qty: 3 0RF azithromycin 250 mg tablet 250 mg PO DAILY 3 Days Qty: 3 0RF prednisone 20 mg tablet 40 mg PO DAILY Qty: 6 0RF <BALBINA Enamorado - Last Filed: 05/07/22 15:10> Referrals: Ashleigh Watts MD [Primary Care Provider] - <BALBINA Enamorado - Last Filed: 05/07/22 15:10>
[2022-05-07 15:06] VITALS: BP 115/76; PULSE 74; RESP 16; TEMP 36.3; O2SAT 96; BMI 28.0
[2022-05-07 15:31] LABS: MANUAL DIFF FLAG NO
[2022-05-07 15:34] LABS: Basophils Absolute Auto 0.1 X10*3/uL (0.0-0.2); Basophils Percent Auto 0.6 % (0-2); Eosinophils Absolute Auto 0.1 X10*3/uL (0.0-0.4); Eosinophils Percent Auto 0.9 % (0-4); Hematocrit 47.5 % (42.0-52.0); Hemoglobin 15.7 g/dl (14.0-18.0); Imm Gran Abs Auto 0.03 X10*3/uL (0.00-0.03); Imm Gran Pct Auto 0.4 % (0.0-0.4); Lymphocytes Absolute Auto 2.3 X10*3/uL (1.2-4.9); Lymphocytes Percent Auto 29.9 % (20-40); Mean Corpuscular HGB Conc 33.1 g/dl (31.0-36.0); Mean Corpuscular Hemoglobin 31.4 pg (27.0-33.0); Mean Platelet Volume 9.1 fL (9.4-12.4); Monocytes Absolute Auto 0.7 X10*3/uL (0.1-1.2); Monocytes Percent Auto 9.1 % (2-11); Neutrophils Absolute Auto 4.6 x10*3/uL (2.0-8.3); Neutrophils Percent Auto 59.1 % (45-73); Platelet Count 224 X10*3/uL (160-400); Red Cell Distribution Width 13.2 % (11.0-16.0); White Blood Count 7.7 X10*3/uL (4.8-10.8)
[2022-05-07 15:37] LABS: Appearance Urine Clear; Color Urine Yellow; Glucose Urine UA Negative (Negative); Leukocyte Esterase Urine Negative (Negative); Nitrite Urine Negative (Negative); Urine Blood Negative (Negative); Urine Ketones Negative (Negative); Urine Protein Negative (Neg-Trace)
[2022-05-07 15:44] LABS: D Dimer High Sensitivity 171 NG/ML
[2022-05-07 15:48] LABS: COVID-19 Test Negative (Negative); IDNOW Serial# BCCEAD1C
[2022-05-07 15:51] LABS: Alanine Aminotransferase 17 U/L (0-40); Albumin Level 4.4 g/dL (3.5-5.0); Alkaline Phosphatase 57 U/L (39-117); Anion Gap 13 (12-20); Aspartate Amino Transferase 18 U/L (5-37); Bilirubin Total 0.4 mg/dL (0.0-1.0); Blood Urea Nitrogen 16 mg/dL (9-16); Calcium 10.6 mg/dL (8.4-10.2); Carbon Dioxide 27 mmol/L (22-29); Chloride 100 mmol/L (96-108); Creatinine Clr Calc Pharmacy 68.5; Estimated Glomerular Filt Rate > 60; Glucose Random 88 mg/dL (60-115); Magnesium 2.3 mg/dL (1.6-2.6); Potassium 4.2 mmol/L (3.3-5.1); Sodium 136 mmol/L (135-145); Total Protein 6.9 g/dL (6.5-8.0)
[2022-05-07 16:06] LABS: Troponin-I High Sensitivity < 3.5 ng/L (<3.5-35.0)
[2022-05-07 16:49] LABS: B Type Natriuretic Peptide < 10 pg/mL (<100)
[2022-05-07 21:47] VITALS: BP 165/82; PULSE 77; RESP 18; TEMP 36.4; O2SAT 95
[2022-05-07 22:26] VITALS: PULSE 80; O2SAT 95
== END 2022-05-07 22:58 | disposition home or self-care (01) ==
PROVIDERS: Physician Assistant; Emergency Provider Internal Medicine; PCP Internal Medicine
DX: M94.0 Chondrocostal junction syndrome [Tietze] (principal); R06.02 Shortness of breath; Z20.822 Contact with and (suspected) exposure to COVID-19; I10 Essential (primary) hypertension; E78.5 Hyperlipidemia, unspecified; Z79.82 Long term (current) use of aspirin; Z79.899 Other long term (current) drug therapy
CPT/HCPCS: 70450; 71045; 80053; 81003; 83735; 83880; 84484; 85025; 85379; 87635; 93005; 99284

== ENCOUNTER 2022-07-16 13:40 | Emergency (ER) | payer OTHER, SELFPAY ==
--- NOTE | ~2022-07-16 | XR_ITS ---
EXAMINATION: XR CHEST CLINICAL INFORMATION: Pneumonia. COMPARISON: None TECHNIQUE: Frontal view of the chest was obtained. FINDINGS: No significant abnormality is noted involving the heart, lungs, mediastinum, bony thorax or soft tissues. XR/XR chest 1V IMPRESSION: Unremarkable chest examination.
[2022-07-16 13:46] VITALS: BP 130/62; PULSE 88; RESP 22; TEMP 36.3; O2SAT 94; BMI 29.5
--- NOTE | 2022-07-16 13:50 | ECG_ITS ---
Test Reason : SOB Blood Pressure : / mmHG Vent. Rate : 082 BPM Atrial Rate : 082 BPM P-R Int : 206 ms QRS Dur : 110 ms QT Int : 370 ms P-R-T Axes : 055 -43 039 degrees QTc Int : 432 ms Sinus rhythm with Premature atrial complexes Left axis deviation Minimal voltage criteria for LVH, may be normal variant ( Blandon product ) Abnormal ECG When compared with ECG of 07-MAY-2022 15:06, Incomplete right bundle branch block is no longer Present Referred By: Lai Jason Electronically Signed By:BRANDY TAYLOR MD
--- NOTE | 2022-07-16 13:53 | ED.GENADULT ---
HPI - General Adult General Chief complaint: Dyspnea <BALBINA Miranda - Last Filed: 07/16/22 19:35> Stated complaint: Difficulty breathing <BALBINA Miranda - Last Filed: 07/16/22 19:35> Time Seen by Provider: 07/16/22 16:08 <BALBINA Miranda - Last Filed: 07/16/22 19:35> Source: patient <Benjamin Oscar MD - Last Filed: 07/16/22 17:35> Mode of arrival: ambulatory <Benjamin Oscar MD - Last Filed: 07/16/22 17:35> Limitations: no limitations <Benjamin Oscar MD - Last Filed: 07/16/22 17:35> History of Present Illness HPI narrative: 81-year-old male with history of COPD. He does have oxygen at home does not use it. Presents with 4 days of cough, right-sided chest pain associated with cough, need for oxygen, congestion. Symptoms have been progressively getting worse. He has dyspnea. The dyspnea is worse with exertion or lying down. Denies any lower extremity edema. Denies any recent travel or or immobilization. He denies any fevers chills, sweats. Does have a positive COVID contact several days ago to his daughter. Home treatment included the use of oxygen 2 L nasal cannula. He reports his oxygen saturation at home was 85% which improved to 94% with 2 L nasal cannula. Patient denies any history of PE, chest pain with exertion, sore throat, runny nose. <Benjamin Oscar MD - Last Filed: 07/16/22 17:35> Related Data Home medications: Home Medications Medication Instructions Recorded Confirmed aspirin 81 mg tablet,delayed 81 mg PO BEDTIME 01/03/22 04/01/22 release famotidine 40 mg tablet 40 mg PO BEDTIME 01/03/22 04/01/22 lisinopril 20 mg tablet 20 mg PO BEDTIME 01/03/22 04/01/22 metoprolol succinate 50 mg 50 mg PO BEDTIME 01/03/22 04/01/22 tablet,extended release 24 hr montelukast 10 mg tablet 10 mg PO BEDTIME 01/03/22 04/01/22 vit C 250 mg-vit E 90 mg-zinc 40 1 tab PO BID 01/03/22 04/01/22 mg-copper 1 [id number] capsule (PreserVision AREDS-2) albuterol sulfate 2.5 mg/3 mL 2.5 mg inhalation Q6H PRN 04/01/22 04/01/22 (0.083 %) solution for nebulization Shortness Of Breath albuterol sulfate 90 mcg/actuation 1 inh inhalation Q4H PRN Shortness 04/01/22 04/01/22 aerosol inhaler (ProAir HFA) Of Breath fluticasone 500 mcg-salmeterol 50 1 inh inhalation BID 04/01/22 04/01/22 mcg/dose blistr powdr for inhalation (Wixela Inhub) tiotropium bromide 2.5 2 puff inhalation BEDTIME 04/01/22 04/01/22 mcg/actuation mist for inhalation Previous Rx's Medication Instructions Recorded azithromycin 250 mg tablet 250 mg PO DAILY 3 days #3 tabs 04/03/22 prednisone 20 mg tablet 40 mg PO DAILY #6 tabs 04/03/22 azithromycin 250 mg tablet 250 mg PO DAILY 3 days #3 tabs 04/04/22 prednisone 20 mg tablet 40 mg PO DAILY #6 tabs 04/04/22 azithromycin 250 mg tablet 250 mg PO DAILY 4 days #4 tabs 07/16/22 azithromycin 250 mg tablet 250 mg PO DAILY 4 months #120 tabs 07/16/22 prednisone 50 mg tablet 50 mg PO DAILY #6 tabs 07/16/22 prednisone 50 mg tablet 50 mg PO DAILY #6 tabs 07/16/22 <BALBINA Miranda - Last Filed: 07/16/22 19:35> Allergies/adverse reactions: Allergies Allergy/AdvReac Type Severity Reaction Status Date / Time No Known Allergies Allergy Verified 10/09/20 16:26 <BALBINA Miranda - Last Filed: 07/16/22 19:35> Review of Systems Review of Systems: Constitutional : No Weight loss, No Fever, No Chills ENT/Mouth :? No sore throat, No Rhinorrhea Eyes: No Eye Pain, No Swelling Cardiovascular : pos Chest Pain, pos SOB, no Dyspnea on Exertion, No Orthopnea, No Edema, No Palpitations Respiratory : + Cough, + Sputum Gastrointestinal : no Nausea, No Vomiting, No Diarrhea, No abdominal Pain, No Hematochezia, No Melena Genitourinary : No Dysuria, No Urinary Frequency Musculoskeletal : No joint pain, No Myalgias, No Joint Swelling Skin : No Skin Lesions, No rash Neuro : No Weakness, No Numbness, No Dizziness, No Headache Psych : No Anxiety/Panic, No Depression Heme/Lymph: No Bruising, No Lymphadenopathy Endocrine : No Polyuria, No Polydipsia <Benjamin Oscar MD - Last Filed: 07/16/22 17:35> Yes all other systems are reviewed and are negative <Benjamin Oscar MD - Last Filed: 07/16/22 17:35> [facility] Past Medical History Medical History: Medical History Asthma Carotid stenosis COPD (chronic obstructive pulmonary disease) HTN (hypertension) Hyperlipidemia Macular degeneration <BALBINA Miranda - Last Filed: 07/16/22 19:35> Surgical History: Surgical History History of carotid angioplasty <BALBINA Miranda - Last Filed: 07/16/22 19:35> Family History Family History: Family History Mother Unknown family medical history Father Unknown family medical history <BALBINA Miranda - Last Filed: 07/16/22 19:35> Social History Social History: Social History Household Members: None Housing: House Do you presently have visiting nurse or other home services: No Patient Tobacco Use Status: Former Tobacco user Quit Date: 1984 Tobacco use type: Cigarette, Cigar and Pipe e-Cigarette/Vaping Use: Never Used Advance Directives: Yes Advance Directives on File: Yes Advance Directives Date on File: 01/04/22 service: Yes Current occupational status: retired <BALBINA Miranda - Last Filed: 07/16/22 19:35> Physical Exam ED Vital Signs: Vital Signs - 24 hr 07/16/22 13:46 07/16/22 18:04 Temperature 97.4 F Pulse Rate 88 76 Respiratory Rate 22 H 18 Blood Pressure 130/62 168/77 H Pulse Oximetry 94 95 Oxygen Delivery Method Nasal Cannula Nasal Cannula Oxygen Flow Rate 3 BMI result Body Mass Index 29.5 <BALBINA Miranda - Last Filed: 07/16/22 19:35> Vital Signs - 24 hr 07/16/22 13:46 07/16/22 18:04 Temperature 97.4 F Pulse Rate 88 76 Respiratory Rate 22 H 18 Blood Pressure 130/62 168/77 H Pulse Oximetry 94 95 Oxygen Delivery Method Nasal Cannula Nasal Cannula Oxygen Flow Rate 3 BMI result Body Mass Index 29.5 <Benjamin Oscar MD - Last Filed: 07/16/22 17:35> Appearance: Alert.?Oriented to person, place and time. No acute distress.?Normal affect. Eyes: Pupils equal, round and reactive to light.? ENT: Pharynx normal.?? Neck: Normal inspection.? Neck supple.?? CVS: Heart sounds normal. Normal heart rate and rhythm.? Pulses normal.?? Respiratory: No respiratory distress.? Ronchi breath sounds bilateral?? Abdomen: Soft and non-tender. Normoactive bowel sounds. Skin: Skin warm and dry.? Normal skin color.? Extremities: No lower extremity edema.? Neuro: Moves all extremities spontaneously. Sensation intact bilaterally. CN II-XII intact. No focal neuro deficits. Ambulates with normal steady gait. <Benjamin Oscar MD - Last Filed: 07/16/22 17:35> Course Course Course Narrative: RME: 81 yold with pmh of CoPD presents to the ED for shortness of breath, and coughing. patient states jason recently informed him she has covid and was around him. patient usually not on oxygen but his 02 sat dropped to below 90 at home. he states base line 02 sat is 96 on room air. On 3liters of oxygen patient is 94% and room air is 90%. lungs positive for wheezing. no leg swelling, pitting edema, or calf pain. Nurse Matilde made aware to place patient in room once there is a bed available. Labs and EKG ordered and chest xray. meds ordered. <BALBINA Miranda - Last Filed: 07/16/22 19:35> RME: 81 yold with pmh of CoPD presents to the ED for shortness of breath, and coughing. patient states jason recently informed him she has covid and was around him. patient usually not on oxygen but his 02 sat dropped to below 90 at home. he states base line 02 sat is 96 on room air. On 3liters of oxygen patient is 94% and room air is 90%. lungs positive for wheezing. no leg swelling, pitting edema, or calf pain. Nurse Matilde made aware to place patient in room once there is a bed available. Labs and EKG ordered and chest xray. meds ordered. 81-year-old male history of COPD not typically on oxygen presents with hypoxia, dyspnea, orthopnea for 4 days. Denies any fevers or chills. On my examination, he sats 94% with 2 L nasal cannula. As coarse breath sounds bilaterally. The rest of his examination is unremarkable including no lower extremity edema. Large differential diagnosis is been considered, see medical decision making. Patient has been waiting patiently in the emergency department waiting room for further evaluation. <Benjamin Oscar MD - Last Filed: 07/16/22 17:35> Reevaluation(s) Reevaluation #1: Patient is nontoxic appearing. I believe the patient most likely has a COPD exacerbation. Fortunately has home oxygen. Will contact Dr. Posey or Dr. 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 Quite possible patient could be discharged home with close follow-up with instructions to return for worsening symptoms. I would recommend starting steroids and antibiotic treatment. <Benjamin Oscar MD - Last Filed: 07/16/22 17:35> Time: 16:22 <Benjamin Oscar MD - Last Filed: 07/16/22 17:35> Reevaluation #2: Patient continues to be doing well. I spoke with covering provider Dr. Galindo from the [place]. at this time, will discharge patient home on home oxygen, steroids and antibiotics. Close follow-up will be arranged by covering provider. I discussed discharge plan with the patient and he understands to have an extremely low threshold to come back to the emergency department for re-evaluation and possible admission she developed high fevers, worsening shortness of breath, swelling in the legs, chest pain, etc.. All discharge instructions were discussed and understood. All questions were answered. <Benjamin Oscar MD - Last Filed: 07/16/22 17:35> Time: 17:31 <Benjamin Oscar MD - Last Filed: 07/16/22 17:35> Medications Administered Discontinued Medications Generic Name Dose Route Start Last Admin Trade Name Rodger PRN Reason Stop Dose Admin Albuterol/Ipratropium 3 ml 07/16/22 13:52 07/16/22 18:10 Albuterol/Iprat 2.5/0.5mg 3 Ml Ampul.Neb INHALE 07/16/22 13:53 Not Given ONCE ONE Azithromycin 500 mg 07/16/22 17:29 07/16/22 18:11 Azithromycin 500 Mg Tablet PO 07/16/22 17:30 500 mg ONCE ONE Administration Magnesium Sulfate 2 gm in 50 mls @ 150 mls/hr 07/16/22 13:52 07/16/22 18:11 Magnesium Sulfate/H2o IV 07/16/22 14:11 Not Given ONCE ONE Methylprednisolone Sodium Succinate 125 mg 07/16/22 13:52 07/16/22 18:11 Methylprednisolone Sod Succ 125 Mg/2 Ml Vial IVPUSH 07/16/22 13:53 Not Given ONCE ONE Prednisone 60 mg 07/16/22 17:29 07/16/22 18:11 Prednisone 20 Mg Tablet PO 07/16/22 17:30 60 mg ONCE ONE Administration <BALBINA Miranda - Last Filed: 07/16/22 19:35> Medications Administered Discontinued Medications Generic Name Dose Route Start Last Admin Trade Name Rodger PRN Reason Stop Dose Admin Albuterol/Ipratropium 3 ml 07/16/22 13:52 07/16/22 18:10 Albuterol/Iprat 2.5/0.5mg 3 Ml Ampul.Neb INHALE 07/16/22 13:53 Not Given ONCE ONE Azithromycin 500 mg 07/16/22 17:29 07/16/22 18:11 Azithromycin 500 Mg Tablet PO 07/16/22 17:30 500 mg ONCE ONE Administration Magnesium Sulfate 2 gm in 50 mls @ 150 mls/hr 07/16/22 13:52 07/16/22 18:11 Magnesium Sulfate/H2o IV 07/16/22 14:11 Not Given ONCE ONE Methylprednisolone Sodium Succinate 125 mg 07/16/22 13:52 07/16/22 18:11 Methylprednisolone Sod Succ 125 Mg/2 Ml Vial IVPUSH 07/16/22 13:53 Not Given ONCE ONE Prednisone 60 mg 07/16/22 17:29 07/16/22 18:11 Prednisone 20 Mg Tablet PO 07/16/22 17:30 60 mg ONCE ONE Administration <Benjamin Oscar MD - Last Filed: 07/16/22 17:35> Medical Decision Making Medical Decision Making [facility] Narrative: 81-year-old male with COPD presents with cough, shortness of breath, orthopnea. On arrival he was noted to be hypoxic requiring supplemental oxygen. He had coarse breath sounds bilaterally. He is currently being maintained on oxygen. Multiple differential diagnoses will be considered. See below. <Benjamin Oscar MD - Last Filed: 07/16/22 17:35> Differential Diagnosis Differential Diagnoses: The differential diagnosis associated with the presentation includes (Pneumonia, bronchitis, viral infection, upper respiratory infection, CHF, PE, pulmonary vascular congestion) <Benjamin Oscar MD - Last Filed: 07/16/22 17:35> COPD exacerbation <Benjamin Oscar MD - Last Filed: 07/16/22 17:35> Admission/Observation Consideration of admission/observation: Escalation of care including admission/observation considered <Benjamin Oscar MD - Last Filed: 07/16/22 17:35> Lab Data [facility] Lab Attestation statement: I reviewed the patient's lab results. <Benjamin Oscar MD - Last Filed: 07/16/22 17:35> Result Diagrams: 07/16/22 14:26 07/16/22 14:26 <BALBINA Miranda - Last Filed: 07/16/22 19:35> Labs: Lab Results 07/16/22 07/16/22 07/16/22 Range/Units 14:26 14:26 14:26 WBC 6.8 (4.8-10.8) X10*3/uL RBC 4.90 (4.60-5.80) X10*6/uL Hgb 15.4 (14.0-18.0) g/dl Hct 45.7 (42.0-52.0) % MCV 93.3 (80.0-98.0) fL MCH 31.4 (27.0-33.0) pg MCHC 33.7 (31.0-36.0) g/dl RDW 13.2 (11.0-16.0) % Plt Count 167 D (160-400) X10*3/uL MPV 9.1 L (9.4-12.4) fL Immature Gran % (Auto) 0.3 (0.0-0.4) % Neut % (Auto) 71.5 (45-73) % Lymph % (Auto) 13.5 L (20-40) % Lynn % (Auto) 13.4 H (2-11) % Eos % (Auto) 0.9 (0-4) % Baso % (Auto) 0.4 (0-2) % Lymph # (Auto) 0.9 L (1.2-4.9) X10*3/uL Lynn # (Auto) 0.9 (0.1-1.2) X10*3/uL Eos # (Auto) 0.1 (0.0-0.4) X10*3/uL Baso # (Auto) 0.0 (0.0-0.2) X10*3/uL Abs Immat Gran (auto) 0.02 (0.00-0.03) X10*3/uL Absolute Neuts (auto) 4.9 (2.0-8.3) x10*3/uL Absolute Nucleated RBC 0.000 (0.0-0.012) X10*3/uL Nucleated RBC % (auto) 0.0 (0.0-0.2) /100WBC PT 11.6 (10.0-13.1) SEC INR 1.0 (0.9-1.1) APTT 32.5 (26.0-36.4) SEC Sodium 134 L (135-145) mmol/L Potassium 4.5 (3.3-5.1) mmol/L Chloride 101 (96-108) mmol/L Carbon Dioxide 24 (22-29) mmol/L Anion Gap 14 (12-20) BUN 14 (9-16) mg/dL Creatinine 0.99 (0.5-1.4) mg/dL Estim Creat Clear Calc 67.3 Estimated GFR > 60 Random Glucose 132 H (60-115) mg/dL Calcium 9.2 D (8.4-10.2) mg/dL Total Bilirubin 0.6 (0.0-1.0) mg/dL AST 29 (5-37) U/L ALT 28 (0-40) U/L Alkaline Phosphatase 79 (39-117) U/L Troponin I High Sens (<3.5-35.0) ng/L B-Natriuretic Peptide (<100) pg/mL Total Protein 6.4 L (6.5-8.0) g/dL Albumin 4.2 (3.5-5.0) g/dL Influenza Type A (PCR) (Negative) Influenza Type B (PCR) (Negative) RSV RNA Qual (PCR) (Negative) SARS-CoV-2 RNA (RT-PCR) (Negative) 07/16/22 07/16/22 07/16/22 Range/Units 14:26 14:26 14:26 WBC (4.8-10.8) X10*3/uL RBC (4.60-5.80) X10*6/uL Hgb (14.0-18.0) g/dl Hct (42.0-52.0) % MCV (80.0-98.0) fL MCH (27.0-33.0) pg MCHC (31.0-36.0) g/dl RDW (11.0-16.0) % Plt Count (160-400) X10*3/uL MPV (9.4-12.4) fL Immature Gran % (Auto) (0.0-0.4) % Neut % (Auto) (45-73) % Lymph % (Auto) (20-40) % Lynn % (Auto) (2-11) % Eos % (Auto) (0-4) % Baso % (Auto) (0-2) % Lymph # (Auto) (1.2-4.9) X10*3/uL Lynn # (Auto) (0.1-1.2) X10*3/uL Eos # (Auto) (0.0-0.4) X10*3/uL Baso # (Auto) (0.0-0.2) X10*3/uL Abs Immat Gran (auto) (0.00-0.03) X10*3/uL Absolute Neuts (auto) (2.0-8.3) x10*3/uL Absolute Nucleated RBC (0.0-0.012) X10*3/uL Nucleated RBC % (auto) (0.0-0.2) /100WBC PT (10.0-13.1) SEC INR (0.9-1.1) APTT (26.0-36.4) SEC Sodium (135-145) mmol/L Potassium (3.3-5.1) mmol/L Chloride (96-108) mmol/L Carbon Dioxide (22-29) mmol/L Anion Gap (12-20) BUN (9-16) mg/dL Creatinine (0.5-1.4) mg/dL Estim Creat Clear Calc Estimated GFR Random Glucose (60-115) mg/dL Calcium (8.4-10.2) mg/dL Total Bilirubin (0.0-1.0) mg/dL AST (5-37) U/L ALT (0-40) U/L Alkaline Phosphatase (39-117) U/L Troponin I High Sens < 3.5 (<3.5-35.0) ng/L B-Natriuretic Peptide < 10 (<100) pg/mL Total Protein (6.5-8.0) g/dL Albumin (3.5-5.0) g/dL Influenza Type A (PCR) NEGATIVE (Negative) Influenza Type B (PCR) NEGATIVE (Negative) RSV RNA Qual (PCR) NEGATIVE (Negative) SARS-CoV-2 RNA (RT-PCR) NEGATIVE (Negative) <BALBINA Miranda - Last Filed: 07/16/22 19:35> Lab Results 07/16/22 07/16/22 07/16/22 Range/Units 14:26 14:26 14:26 WBC 6.8 (4.8-10.8) X10*3/uL RBC 4.90 (4.60-5.80) X10*6/uL Hgb 15.4 (14.0-18.0) g/dl Hct 45.7 (42.0-52.0) % MCV 93.3 (80.0-98.0) fL MCH 31.4 (27.0-33.0) pg MCHC 33.7 (31.0-36.0) g/dl RDW 13.2 (11.0-16.0) % Plt Count 167 D (160-400) X10*3/uL MPV 9.1 L (9.4-12.4) fL Immature Gran % (Auto) 0.3 (0.0-0.4) % Neut % (Auto) 71.5 (45-73) % Lymph % (Auto) 13.5 L (20-40) % Lynn % (Auto) 13.4 H (2-11) % Eos % (Auto) 0.9 (0-4) % Baso % (Auto) 0.4 (0-2) % Lymph # (Auto) 0.9 L (1.2-4.9) X10*3/uL Lynn # (Auto) 0.9 (0.1-1.2) X10*3/uL Eos # (Auto) 0.1 (0.0-0.4) X10*3/uL Baso # (Auto) 0.0 (0.0-0.2) X10*3/uL Abs Immat Gran (auto) 0.02 (0.00-0.03) X10*3/uL Absolute Neuts (auto) 4.9 (2.0-8.3) x10*3/uL Absolute Nucleated RBC 0.000 (0.0-0.012) X10*3/uL Nucleated RBC % (auto) 0.0 (0.0-0.2) /100WBC PT 11.6 (10.0-13.1) SEC INR 1.0 (0.9-1.1) APTT 32.5 (26.0-36.4) SEC Sodium 134 L (135-145) mmol/L Potassium 4.5 (3.3-5.1) mmol/L Chloride 101 (96-108) mmol/L Carbon Dioxide 24 (22-29) mmol/L Anion Gap 14 (12-20) BUN 14 (9-16) mg/dL Creatinine 0.99 (0.5-1.4) mg/dL Estim Creat Clear Calc 67.3 Estimated GFR > 60 Random Glucose 132 H (60-115) mg/dL Calcium 9.2 D (8.4-10.2) mg/dL Total Bilirubin 0.6 (0.0-1.0) mg/dL AST 29 (5-37) U/L ALT 28 (0-40) U/L Alkaline Phosphatase 79 (39-117) U/L Troponin I High Sens (<3.5-35.0) ng/L B-Natriuretic Peptide (<100) pg/mL Total Protein 6.4 L (6.5-8.0) g/dL Albumin 4.2 (3.5-5.0) g/dL Influenza Type A (PCR) (Negative) Influenza Type B (PCR) (Negative) RSV RNA Qual (PCR) (Negative) SARS-CoV-2 RNA (RT-PCR) (Negative) 07/16/22 07/16/22 07/16/22 Range/Units 14:26 14:26 14:26 WBC (4.8-10.8) X10*3/uL RBC (4.60-5.80) X10*6/uL Hgb (14.0-18.0) g/dl Hct (42.0-52.0) % MCV (80.0-98.0) fL MCH (27.0-33.0) pg MCHC (31.0-36.0) g/dl RDW (11.0-16.0) % Plt Count (160-400) X10*3/uL MPV (9.4-12.4) fL Immature Gran % (Auto) (0.0-0.4) % Neut % (Auto) (45-73) % Lymph % (Auto) (20-40) % Lynn % (Auto) (2-11) % Eos % (Auto) (0-4) % Baso % (Auto) (0-2) % Lymph # (Auto) (1.2-4.9) X10*3/uL Lynn # (Auto) (0.1-1.2) X10*3/uL Eos # (Auto) (0.0-0.4) X10*3/uL Baso # (Auto) (0.0-0.2) X10*3/uL Abs Immat Gran (auto) (0.00-0.03) X10*3/uL Absolute Neuts (auto) (2.0-8.3) x10*3/uL Absolute Nucleated RBC (0.0-0.012) X10*3/uL Nucleated RBC % (auto) (0.0-0.2) /100WBC PT (10.0-13.1) SEC INR (0.9-1.1) APTT (26.0-36.4) SEC Sodium (135-145) mmol/L Potassium (3.3-5.1) mmol/L Chloride (96-108) mmol/L Carbon Dioxide (22-29) mmol/L Anion Gap (12-20) BUN (9-16) mg/dL Creatinine (0.5-1.4) mg/dL Estim Creat Clear Calc Estimated GFR Random Glucose (60-115) mg/dL Calcium (8.4-10.2) mg/dL Total Bilirubin (0.0-1.0) mg/dL AST (5-37) U/L ALT (0-40) U/L Alkaline Phosphatase (39-117) U/L Troponin I High Sens < 3.5 (<3.5-35.0) ng/L B-Natriuretic Peptide < 10 (<100) pg/mL Total Protein (6.5-8.0) g/dL Albumin (3.5-5.0) g/dL Influenza Type A (PCR) NEGATIVE (Negative) Influenza Type B (PCR) NEGATIVE (Negative) RSV RNA Qual (PCR) NEGATIVE (Negative) SARS-CoV-2 RNA (RT-PCR) NEGATIVE (Negative) <Benjamin Oscar MD - Last Filed: 07/16/22 17:35> Independent Interpretation I performed an independent interpretation of an: EKG (Sinus rhythm with sinus arrhythmia heart rate 82, nonspecific T-wave changes, no acute ST elevations or depressions, normal intervals) and Plain X-Ray (Chest x-ray: No acute cardiopulmonary disease) <Benjamin Oscar MD - Last Filed: 07/16/22 17:35> Radiology Impression Discussion of test interpretation with radiology: I have reviewed the radiologist's reading. (IMPRESSION: Unremarkable chest examination. Dictated By:Mauri Heart MDSigned By:<Electronically signed by Mauri Heart MD in [place]>07/16/22 [id number]) <Benjamin Oscar MD - Last Filed: 07/16/22 17:35> External Record Review External record reviewed: Inpatient record (Discharge summary from March of 2022) <Benjamin Oscar MD - Last Filed: 07/16/22 17:35> Tests considered The following testing was considered but not selected: CT angiogram <Benjamin Oscar MD - Last Filed: 07/16/22 17:35> Prescription Management I considered prescription management with: Antibiotic <Benjamin Oscar MD - Last Filed: 07/16/22 17:35> Discharge Plan Discharge Clinical Impression: Acute exacerbation of chronic obstructive airways disease <BALBINA Miranda - Last Filed: 07/16/22 19:35> Patient Disposition: Home, Self-Care <BALBINA Miranda - Last Filed: 07/16/22 19:35> Instructions: How to Use a Metered-Dose Inhaler (ED), COPD (Chronic Obstructive Pulmonary Disease) (ED) <BALBINA Miarnda - Last Filed: 07/16/22 19:35> Additional Instructions: You were seen today for difficulty breathing. Your diagnosis most likely acute exacerbation of COPD. Should any of your symptoms worsen including shortness of breath, difficulty breathing when lying down, swelling in the legs, high fevers or any other concerning symptoms, I would have a very low threshold to return to the emergency department for evaluation and management. <BALBINA Miranda - Last Filed: 07/16/22 19:35> Prescriptions: New azithromycin 250 mg tablet 250 mg PO DAILY 120 Days Qty: 120 0RF prednisone 50 mg tablet 50 mg PO DAILY Qty: 6 0RF azithromycin 250 mg tablet 250 mg PO DAILY 4 Days Qty: 4 0RF prednisone 50 mg tablet 50 mg PO DAILY Qty: 6 0RF No Action metoprolol succinate 50 mg Tablet Extended Release 24 Hr 50 mg PO BEDTIME lisinopril 20 mg Tablet 20 mg PO BEDTIME famotidine 40 mg Tablet 40 mg PO BEDTIME aspirin 81 mg Tablet,Delayed Release (Dr/Ec) 81 mg PO BEDTIME montelukast 10 mg Tablet 10 mg PO BEDTIME PreserVision AREDS-2 250-90-40-1 mg Capsule 1 tab PO BID albuterol sulfate 2.5 mg /3 mL (0.083 %) Solution For Nebulization 2.5 mg INHALATION Q6H PRN (Reason: Shortness Of Breath) fluticasone propion-salmeterol [Wixela Inhub] 500-50 mcg/dose Blister With Device 1 inh INHALATION BID albuterol sulfate [ProAir HFA] 90 mcg/actuation Hfa Aerosol Inhaler 1 inh INHALATION Q4H PRN (Reason: Shortness Of Breath) tiotropium bromide 2.5 mcg/actuation Mist 2 puff INHALATION BEDTIME prednisone 20 mg tablet 40 mg PO DAILY Qty: 6 0RF azithromycin 250 mg tablet 250 mg PO DAILY 3 Days Qty: 3 0RF azithromycin 250 mg tablet 250 mg PO DAILY 3 Days Qty: 3 0RF prednisone 20 mg tablet 40 mg PO DAILY Qty: 6 0RF <BALBINA Miranda - Last Filed: 07/16/22 19:35> Referrals: Ashleigh Watts MD [Primary Care Provider] - 2 days <BALBINA Miranda - Last Filed: 07/16/22 19:35> Interventions: ED Discharge Assessment Last Done: 07/16/22 18:33 <BALBINA Miranda - Last Filed: 07/16/22 19:35> Discharge Date/Time: 07/16/22 18:33 <BALBINA Miranda - Last Filed: 07/16/22 19:35>
[2022-07-16 14:35] LABS: MANUAL DIFF FLAG NO
[2022-07-16 14:38] LABS: Basophils Percent Auto 0.4 % (0-2); Eosinophils Absolute Auto 0.1 X10*3/uL (0.0-0.4); Eosinophils Percent Auto 0.9 % (0-4); Hematocrit 45.7 % (42.0-52.0); Hemoglobin 15.4 g/dl (14.0-18.0); Imm Gran Abs Auto 0.02 X10*3/uL (0.00-0.03); Imm Gran Pct Auto 0.3 % (0.0-0.4); Lymphocytes Absolute Auto 0.9 X10*3/uL (1.2-4.9); Lymphocytes Percent Auto 13.5 % (20-40); Mean Corpuscular HGB Conc 33.7 g/dl (31.0-36.0); Mean Corpuscular Hemoglobin 31.4 pg (27.0-33.0); Mean Corpuscular Volume 93.3 fL (80.0-98.0); Mean Platelet Volume 9.1 fL (9.4-12.4); Monocytes Absolute Auto 0.9 X10*3/uL (0.1-1.2); Monocytes Percent Auto 13.4 % (2-11); Neutrophils Absolute Auto 4.9 x10*3/uL (2.0-8.3); Neutrophils Percent Auto 71.5 % (45-73); Platelet Count 167 X10*3/uL (160-400); Red Cell Distribution Width 13.2 % (11.0-16.0); White Blood Count 6.8 X10*3/uL (4.8-10.8)
[2022-07-16 15:00] LABS: Prothrombin Time 11.6 SEC (10.0-13.1)
[2022-07-16 15:01] LABS: Alanine Aminotransferase 28 U/L (0-40); Albumin Level 4.2 g/dL (3.5-5.0); Alkaline Phosphatase 79 U/L (39-117); Anion Gap 14 (12-20); Aspartate Amino Transferase 29 U/L (5-37); Bilirubin Total 0.6 mg/dL (0.0-1.0); Blood Urea Nitrogen 14 mg/dL (9-16); Calcium 9.2 mg/dL (8.4-10.2); Carbon Dioxide 24 mmol/L (22-29); Chloride 101 mmol/L (96-108); Creatinine Clr Calc Pharmacy 67.3; Estimated Glomerular Filt Rate > 60; Glucose Random 132 mg/dL (60-115); Potassium 4.5 mmol/L (3.3-5.1); Sodium 134 mmol/L (135-145); Total Protein 6.4 g/dL (6.5-8.0)
[2022-07-16 15:02] LABS: Partial Thromboplastin Time 32.5 SEC (26.0-36.4)
[2022-07-16 15:04] LABS: B Type Natriuretic Peptide < 10 pg/mL (<100)
[2022-07-16 15:14] LABS: Influenza A PCR NEGATIVE (Negative); Influenza B PCR NEGATIVE (Negative); Resp Syncy Virus RNA Qual PCR NEGATIVE (Negative); SARS COV2 PCR INHOUSE NEGATIVE (Negative); Troponin-I High Sensitivity < 3.5 ng/L (<3.5-35.0)
[2022-07-16 18:04] VITALS: BP 168/77; PULSE 76; RESP 18; O2SAT 95
[2022-07-16] MEDS: Azithromycin 500 MG TABLET PO (18:11)
[2022-07-16] MEDS: predniSONE 20 MG TABLET 60 MG PO (18:11)
== END 2022-07-16 18:33 | disposition home or self-care (01) ==
PROVIDERS: Physician Assistant; Emergency Provider Emergency Medicine; PCP Internal Medicine
DX: J44.1 Chronic obstructive pulmonary disease with (acute) exacerbation (principal); R06.02 Shortness of breath; Z20.822 Contact with and (suspected) exposure to COVID-19; Z20.828 Contact with and (suspected) exposure to other viral communicable diseases; I10 Essential (primary) hypertension; E78.5 Hyperlipidemia, unspecified; Z99.81 Dependence on supplemental oxygen; Z87.891 Personal history of nicotine dependence; Z79.82 Long term (current) use of aspirin; Z79.899 Other long term (current) drug therapy
CPT/HCPCS: 0241U; 36415; 71045; 80053; 83880; 84484; 85025; 85610; 85730; 93005; 99283